=== PATIENT | male | born 1935 | race Caucasian/White ===

== ENCOUNTER 2017-06-29 05:38 | Inpatient (IN) | payer MEDICARE ==
[2017-06-29] MEDS ORDERED: Ondansetron HCl/PF 4 MG/2 ML Vial ONE (06:37)
[2017-06-29] MEDS ORDERED: Morphine 10 MG/ML VIAL ONE (06:37)
--- NOTE | 2017-06-29 08:36 | RAD ---
PRELIMINARY REPORT/[facility]/EMERGENCY AFTER HOURS PROCEDURE: EXAM: XR Left Hip With Pelvis When Performed, 2 or 3 Views CLINICAL HISTORY: 81 years old, male; Injury or trauma; Fall; Initial encounter; Blunt trauma (contusions or hematomas ); Left; Hip TECHNIQUE: Two or three views of the left hip, with pelvis when performed. COMPARISON: No relevant prior studies available. FINDINGS: Vertical orientation of the acetabular component with prominent surrounding lucency. Prominent lucency surrounding the femoral stem No definite fracture identified. Questionable irregularity along the proximal femoral shaft Prominent osteopenia in the left pubic bone IMPRESSION: Questionable loosening surrounding the left prosthesis Question minimal irregularity along the proximal left femoral cortex. CT may be helpful for further evaluation/characterization Thank you for allowing us to participate in the care of your patient. Dictated and Authenticated by: Esdras Lake MD 06/29/2017 7:15 AM Central Time ([place] \T\ [place]) FINAL REPORT TWO VIEWS OF THE LEFT HIP: COMPARISON: 08/10/16. HISTORY: Left hip pain. FINDINGS: Two views of the left hip show the patient to be status post left hip arthroplasty. There is lucenc y surrounding the acetabular component of the prosthesis which has increased compared to the prior e xam and may be secondary to small particles disease. Brachytherapy seeds are seen in the prostate. IMPRESSION: 1. No evidence of acute osseous abnormality. 2. Lucency surrounding the left hip prosthesis may be secondary to small particles disease. I agree with the impression given in the preliminary report per [facility] physician. POS: [facility]
--- NOTE | 2017-06-29 08:38 | RAD ---
PRELIMINARY REPORT/[facility]/EMERGENCY AFTER HOURS PROCEDURE: EXAM: XR Pelvis, 1 or 2 Views CLINICAL HISTORY: 81 years old, male; Injury or trauma; Fall; Initial encounter; Blunt trauma (contusions or hematomas ); Left; Hip TECHNIQUE: Frontal view of the pelvis. COMPARISON: No relevant prior studies available. FINDINGS: Prominent lucency medial to the left acetabular component Wires over the left femoral component are grossly intact. Brachytherapy seeds in the prostate. No de finite acute fracture or dislocation. Degenerative changes in the lower lumbar spine IMPRESSION: No definite acute fracture observed Lucencies surrounding the acetabular component on the left which may represent loosening. Consider CT for further evaluation Thank you for allowing us to participate in the care of your patient. Dictated and Authenticated by: Esdras Lake MD 06/29/2017 7:15 AM Central Time ([place] \T\ [place]) FINAL REPORT SINGLE VIEW OF THE PELVIS: COMPARISON: 04/13/17. HISTORY: Fall with left hip pain. FINDINGS: A single view of the pelvis shows the patient to be status post bilateral hip arthroplasty. Lucency is seen along the acetabular component of the left hip prosthesis, likely secondary to small partic les disease. Brachytherapy seeds are seen in the prostate. IMPRESSION: 1. No evidence of acute osseous abnormality. 2. Lucency surrounding the left hip prosthesis is likely secondary to small particles disease. I agree with the findings in the preliminary report. POS: [facility]
[2017-06-29 09:21] LABS: #Eosinphils 0.1 thou/uL (0.0-0.7); #Lymphocytes 1.6 thou/uL (1.20-3.40); #Monocytes 0.6 thou/uL (0.11-0.59); #Neutrophils 10.8 thou/uL (1.40-6.50); %Basophils 0.3 % (0.0-1.0); %Eosinophils 0.6 % (0.0-10.0); %Lymphocytes 12.2 % (21.0-51.0); %Monocytes 4.9 % (0.0-10.0); Hematocrit 41.2 % (42.0-52.0); Mean Platelet Volume 5.8 fL (7.4-10.4); Red Blood Cell (RBC) Count 4.63 mill/uL (4.70-6.10); White Blood Cell (WBC) Count 13.1 thou/uL (4.8-10.8)
--- NOTE | 2017-06-29 09:26 | CT ---
LEFT HIP CT SCAN: HISTORY: A 81-year-old male with fall and hip pain. FINDINGS: Bilateral total hip replacement changes with very extensive metal artifact resulting in severe image degradation on this CT scan. Comparison is made to prior plain film examinations dated 06/29/17 an d 08/10/16. The space between the mid and lower acetabulum and the acetabular prosthesis has considerably increa sed in size, evidence for loosening or developing particle disease. This space on plain film examin ation of 06/29/17 measured 1.9 cm whereas that same space on the 08/10/16 study measures 0.9 cm. No definite evidence for acute fracture. Periprosthetic fractures are oftentimes not visualized on CT because of the dense metal artifact and are oftentimes better visualized on plain film examination. IMPRESSION: Abnormal widening of the space between the mid and the inferior acetabulum and the acetabular prosth esis, evidence for loosening or developing particle disease. Severe bone demineralization. No over t acute fracture or dislocation. POS: [facility]
[2017-06-29 09:28] LABS: PTT 37.2 SEC (22.9-36.1)
[2017-06-29 09:42] LABS: ALT (SGPT) 20 U/L (8-55); AST (SGOT) 16 U/L (5-34); Alkaline Phosphatase 244 U/L (40-150); Anion Gap 15 mmol/L (10-20); BUN (Urea Nitrogen) 16 mg/dL (8.4-25.7); Bilirubin, Total 0.6 mg/dL (0.2-1.2); Calc. Creatinine Clearance 0 mL/min (70-130); Calcium 9.2 mg/dL (7.8-10.44); Carbon Dioxide 23 mmol/L (23-31); Chloride 104 mmol/L (98-107); Estimated GFR-MDRD 78; Protein, Total 7.3 g/dL (5.8-8.1)
[2017-06-29 12:51] VITALS: BMI 25.9
[2017-06-29] MEDS ORDERED: FLU VACC TS2017-18 (>65YR) 0.5 ML SYRINGE IM ONE (13:15)
[2017-06-29] MEDS ORDERED: hydrALAZINE 20 MG/ML VIAL SLOW IVP PRN (14:20)
[2017-06-29] MEDS ORDERED: Acetaminophen 500 MG TAB PO PRN (14:20)
[2017-06-29] MEDS ORDERED: cloNIDine 0.1 MG TAB PO PRN (14:20)
[2017-06-29] MEDS ORDERED: Ondansetron ODT 4 MG TAB PO PRN (14:20)
[2017-06-29] MEDS ORDERED: Ondansetron HCl/PF 4 MG/2 ML Vial IVP PRN (14:20)
[2017-06-29] MEDS: Gabapentin 300 MG CAP PO SCH ×2 (15:32→20:44)
[2017-06-29] MEDS: Morphine 4 MG/ML VIAL SLOW IVP PRN ×2 (15:32→19:15)
[2017-06-29] MEDS: ALPRAZolam 0.5 MG TAB PO SCH ×2 (16:24→20:44)
[2017-06-29] MEDS ORDERED: Enzalutamide [Xtandi] 40 MG CAPSULE PO SCH (16:30)
--- NOTE | 2017-06-29 17:06 | CON ---
DATE OF CONSULTATION: 06/29/2017 REASON FOR CONSULTATION: Left hip pain. HISTORY OF PRESENT ILLNESS: Mr. Herring is a patient, well known to me. I performed a revision of hi s hip for multiple dislocations some years in the past. He has been seen by me in the office and I have discussed with him the fact that he has a failing acetabular component and we have discussed re vision arthroplasty. In the past he has been steadfastly against this, unfortunately fell at home t [facility] and says the hip hurts too much to go home and basically does not feel that he can stay here. Comparing x-rays now to previous x-rays, his hip cup has moved significantly. He has failure of bon y ingrowth, has also significant osteolysis around the hip plate this time is for order CRP for infe ction workup, revision of the acetabulum unless he has an infection in which case all implants will have to be removed. He understands this is a risky surgery and he would like to proceed with surger y. This will only be done after cardiac workup. He does not take any type of blood thinner, but he does have a pacemaker and will need to be evaluated.
--- NOTE | 2017-06-29 17:41 | HP ---
DATE OF ADMISSION: 06/29/2017 PRIMARY CARE PHYSICIAN: Dr. Richar Morton. CHIEF COMPLAINT: Left hip pain status post fall. HISTORY OF PRESENT ILLNESS: This is a 81-year-old male who presents to [facility] in transfer from [facility] after apparently sustaining a fall aft er standing up. The patient states he was using his walker to stand up and he developed excruciatin g left hip pain causing him to fall and lose his balance. The patient states his legs felt like it give away and he admits to a longstanding history of difficulty with the left hip, status post total hip arthroplasty. The patient states he has had both hip replacements performed without any diffic ulty for the right side, but multiple difficulties with the left. The patient denied any loss of co nsciousness, chest pain, unilateral weakness or difficulty with speech. The patient denied any spec ific fever, chills, exposure history or discoloration to the leg. In the emergency room, the patien t underwent general evaluation including CT imaging of the left hip showing evidence of loosening of the current hardware at the acetabular interface. No specific fracture was identified; however, du e to loosening of the hardware and nonambulatory status, the patient is being referred to the [facility] for admission. The patient was evaluated by the Orthopedic Surgery service with recom mendations to proceed with surgical intervention and removal of hardware. PAST MEDICAL HISTORY: 1. History of multiple falls. 2. Thyroid carcinoma. 3. History of prostate carcinoma. 4. Sciatica. 5. Dyslipidemia. 6. Hypothyroidism. 7. Degenerative joint disease. 8. Hyperlipidemia. 9. Chronic neck and left hip pain. 10. Depression. PAST SURGICAL HISTORY: 1. Status post partial thyroidectomy. 2. Status post bilateral total hip arthroplasties. 3. Status post bilateral inguinal hernia repair. 4. Status post appendectomy. 5. Status post eye surgery. CURRENT MEDICATIONS: 1. Alprazolam 0.5 mg p.o. t.i.d. 2. Xtandi 160 mg p.o. daily. 3. Ferrous gluconate 325 mg p.o. daily. 4. Lasix 40 mg p.o. b.i.d. 5. Gabapentin 300 mg p.o. t.i.d. 6. Baker 10/325 mg 1 tab p.o. q.4-6 hours p.r.n. pain. 7. Levothyroxine 88 mcg p.o. daily. 8. Flomax 0.4 mg p.o. b.i.d. ALLERGIES: No known drug allergies. FAMILY HISTORY: No inheritable diseases per patient report. SOCIAL HISTORY: The patient resides at [facility]. Retired. Remote history of t obacco and heavy alcohol use. No illicit drug use. Ambulates with the use of a rolling walker with history of recurrent falls. REVIEW OF SYSTEMS: The following complete review of systems was negative, unless otherwise mentione d in the HPI or below: Constitutional: Weight loss or gain, ability to conduct usual activities. Skin: Rash, itching. Eyes: Double vision, pain. ENT/Mouth: Nose bleeding, neck stiffness, pain, tenderness. Cardiovascular: Palpitations, dyspnea on exertion, orthopnea. Respiratory: Shortness of breath, wheezing, cough, hemoptysis, fever or night sweats. Gastrointestinal: Poor appetite, abdominal pain, heartburn, nausea, vomiting, constipation, or diar owen. Genitourinary: Urgency, frequency, dysuria, nocturia. Musculoskeletal: Pain, swelling. Neurologic/Psychiatric: Anxiety, depression. Allergy/Immunologic: Skin rash, bleeding tendency. PHYSICAL EXAMINATION: VITAL SIGNS: On admission, blood pressure 114/60, pulse 74, respiratory rate is 15, temperature 98. 3 degrees Fahrenheit, O2 saturation 96% on room air. GENERAL APPEARANCE: This is a 81-year-old male, alert and oriented x3, pleasant, responsi ve, in no acute distress. HEENT: Pupils are equal, round, and reactive to light and accommodation. Extraocular muscles are i ntact. No scleral icterus, no conjunctival injection. Nares patent. OP is clear. Teeth in fair r epair. NECK: Supple, no cervical adenopathy, no thyromegaly, no carotid bruits, no JVD appreciated. Cervi yusuf spine with full active and passive range of motion. CHEST: Lungs are clear to auscultation bilaterally. CARDIOVASCULAR: S1, S2, without noted murmur. ABDOMEN: Rounded, soft, nontender, nondistended. Bowel sounds are positive in all four quadrants. There is no hepatosplenomegaly, no abdominal bruits, no rebound or guarding appreciated. EXTREMITIES: Warm and dry with fair turgor. Mild edema to the mid shins bilaterally. Pulses palpa ble distally at the dorsalis pedis, posterior tibial, and popliteal arteries bilaterally. Capillary refill less than 2 seconds. Positive tenderness to palpation in the left greater trochanter region . No palpable mass or deformity. NEUROLOGIC: Cranial nerves II-XII are grossly intact. No focal or lateralizing signs appreciated. The patient not observed ambulatory during this exam. PERTINENT LABORATORY AND X-RAY FINDINGS: Sodium 138, potassium 4.4, chloride 104, CO2 of 23, BUN 16 , creatinine 0.93, glucose 104, calcium 9.2, AST 16, ALT of 20, alkaline phosphatase 244, albumin 3. 3. CBC showed a white blood cell count 13.1, hemoglobin 13, hematocrit 41, platelet count 436 with 82% neutrophils. PT 14.0, INR 1.1, PTT 37.2. Two views of the left hip dated 06/29/2017 showed que stionable loosening surrounding the left hip prosthesis. CT of the left hip dated 06/29/2017 showed abnormal widening of the space between the mid and the inferior acetabulum and acetabular prosthesi s. Severe bone demineralization noted. No acute fracture identified. ASSESSMENT AND PLAN: 1. Displaced left hip prosthesis with intractable left hip pain. The patient will be admitted to [facility] floor. We will continue morphine sulfate 4 mg IV every 4 hours p.r.n. pain. Continue ho me Baker regimen. Consult Orthopedic Surgery service for evaluation and likely need for removal of hardware and total hip arthroplasty. 2. Recurrent falls. Suspect multifactorial given patient's displaced hardware and severe degenerat ml joint disease. Obtain PT evaluation for functional assessment. High fall risk precautions. 3. Leukocytosis with neutrophilia. Suspect secondarily to recent fall. We will repeat CBC in the a.m. No current evidence of focal infectious process. 4. Hypothyroidism. Resume Synthroid 88 mcg p.o. daily. 5. Prostate carcinoma. Continue Xtandi 160 mg p.o. daily. 6. Prophylaxis. Sequential compression devices while in bed. Pepcid 20 mg p.o. b.i.d. PT evaluat ion pending. 7. Code status is FULL. Surrogate medical decision maker is patient's son.
[2017-06-29] MEDS: Famotidine 20 MG TAB PO SCH (20:44)
[2017-06-29] MEDS: Tamsulosin HCl 0.4 MG CAP PO SCH (20:45)
[2017-06-29] MEDS ORDERED: Furosemide 40 MG TAB PO SCH (21:00)
[2017-06-30] MEDS: Morphine 4 MG/ML VIAL SLOW IVP PRN ×5 (00:23→21:46)
[2017-06-30] MEDS: HYDROcodone/Acetaminophen 10/325 mg Tablet PO PRN ×4 (03:40→19:23)
[2017-06-30] MEDS: Levothyroxine Sodium 88 MCG TAB PO SCH (06:04)
[2017-06-30] MEDS: Furosemide 40 MG TAB PO SCH ×2 (06:04→14:33)
[2017-06-30 06:27] LABS: Band 1 % (5-11); Hematocrit 39.5 % (42.0-52.0); Mean Platelet Volume 5.9 fL (7.4-10.4); Neutrophil 58 % (42-75); Reactive Lymphocytes 2 % (0-10); Red Blood Cell (RBC) Count 4.44 mill/uL (4.70-6.10); White Blood Cell (WBC) Count 7.3 thou/uL (4.8-10.8)
[2017-06-30 06:29] LABS: Anion Gap 15 mmol/L (10-20); BUN (Urea Nitrogen) 14 mg/dL (8.4-25.7); Calc. Creatinine Clearance 87 mL/min (70-130); Calcium 8.8 mg/dL (7.8-10.44); Carbon Dioxide 22 mmol/L (23-31); Chloride 102 mmol/L (98-107); Estimated GFR-MDRD Greater than 90
[2017-06-30] MEDS: Enzalutamide [Xtandi] 40 MG CAPSULE PO SCH (08:10)
[2017-06-30] MEDS: ALPRAZolam 0.5 MG TAB PO SCH ×3 (08:18→20:22)
[2017-06-30] MEDS: Famotidine 20 MG TAB PO SCH ×2 (08:18→20:22)
[2017-06-30] MEDS: Ferrous Gluconate 324 MG TAB PO SCH (08:19)
[2017-06-30] MEDS: Tamsulosin HCl 0.4 MG CAP PO SCH ×2 (08:19→20:22)
[2017-06-30] MEDS: Gabapentin 300 MG CAP PO SCH ×3 (08:19→20:22)
--- NOTE | 2017-06-30 12:47 | PDOC.PN ---
- Subjective Encounter Start Date: 06/30/17 Encounter Start Time: 08:40 -: old records requested/rev Patient seen and examined. No overnight events, has left hip pain, no fever - Objective Resuscitation Status: Resuscitation Status FULL:Full Resuscitation MAR Reviewed: Yes Vital Signs & Weight: Vital Signs (12 hours) Temp Pulse Resp BP Pulse Ox 06/30/17 12:00 97.7 F 69 18 111/72 94 L 06/30/17 11:30 97.7 F 69 20 111/72 94 L 06/30/17 09:00 97.9 F 66 20 06/30/17 08:00 97.9 F 66 20 111/71 93 L 06/30/17 07:44 97.9 F 66 18 111/71 93 L 06/30/17 04:31 98.4 F 78 18 112/72 94 L I&O: 06/29/17 06/30/17 07/01/17 06:59 06:59 06:59 Intake Total 1422 Output Total 535 Balance 887 Result Diagrams: 06/30/17 05:10 06/30/17 05:10 Radiology Reviewed by me: Yes Phys Exam - Physical Examination Constitutional: NAD HEENT: PERRLA, moist MMs, sclera anicteric Neck: no JVD, supple Respiratory: no wheezing, no rales, no rhonchi Cardiovascular: RRR, no significant murmur, no rub Gastrointestinal: soft, non-tender, no distention, positive bowel sounds Musculoskeletal: no edema, pulses present Neurological: non-focal Lymphatic: no nodes Psychiatric: normal affect Skin: no rash, normal turgor Dx/Plan (1) Inability to ambulate due to left hip Code(s): R26.2 - DIFFICULTY IN WALKING, NOT ELSEWHERE CLASSIFIED Status: Acute (2) Left hip pain Code(s): M25.552 - PAIN IN LEFT HIP Status: Acute (3) Anxiety and depression Code(s): F41.8 - OTHER SPECIFIED ANXIETY DISORDERS Status: Chronic (4) DJD (degenerative joint disease) Code(s): M19.90 - UNSPECIFIED OSTEOARTHRITIS, UNSPECIFIED SITE Status: Chronic (5) Dyslipidemia Code(s): E78.5 - HYPERLIPIDEMIA, UNSPECIFIED Status: Chronic (6) H/O prostate cancer Code(s): Z85.46 - PERSONAL HISTORY OF MALIGNANT NEOPLASM OF PROSTATE Status: Chronic (7) Hypothyroidism Code(s): E03.9 - HYPOTHYROIDISM, UNSPECIFIED Status: Chronic (8) Physical deconditioning Code(s): R53.81 - OTHER MALAISE Status: Chronic (9) Recurrent falls Code(s): R29.6 - REPEATED FALLS Status: Chronic - Plan cont current plan of care * will do EKG, chest xray and echo as a part of pre operative evaluation * ortho requesting cardiac clearance for surgery * pt is planned for surgery may be on Saturday * medication reviewed as below * symptomatic treatment * discussed with ortho. Review of Systems - Review of Systems ENT: negative: Ear Pain, Ear Discharge, Nose Pain, Nose Discharge, Nose Congestion, Mouth Pain, Mouth Swelling, Throat Pain, Throat Swelling, Other Respiratory: negative: Cough, Dry, Shortness of Breath, Hemoptysis, SOB with Excertion, Pleuritic Pain, Sputum, Wheezing Cardiovascular: negative: Chest Pain, Palpitations, Orthopnea, Paroxysmal Noc. Dyspnea, Edema, Light Headedness, Other Gastrointestinal: negative: Nausea, Vomiting, Abdominal Pain, Diarrhea, Constipation, Melena, Hematochezia, Other Genitourinary: negative: Dysuria, Frequency, Incontinence, Hematuria, Retention , Other Musculoskeletal: Leg Pain. negative: Neck Pain, Shoulder Pain, Arm Pain, Back Pain, Hand Pain, Foot Pain, Other Skin: negative: Rash, Lesions, Ebenezer, Bruising, Other - Medications/Allergies Allergies/Adverse Reactions: Allergies Allergy/AdvReac Type Severity Reaction Status Date / Time No Known Allergies Allergy Verified 04/12/17 10:53 Medications: Current Medications Acetaminophen (Tylenol) 1,000 mg PO Q6H PRN PRN Reason: Headache/Fever or Mild Pain Hydrocodone Bitart/Acetaminophen (Dawson 10/325) 1 tab PO Q4H PRN PRN Reason: Moderate Pain (4-6) Last Admin: 06/30/17 08:20 Dose: 1 tab Alprazolam (Xanax) 0.5 mg PO TID COUNTS INCLUDE 234 BEDS AT THE [facility] Last Admin: 06/30/17 08:18 Dose: 0.5 mg Clonidine (Catapres) 0.1 mg PO Q4H PRN PRN Reason: Systolic BP > 180 Famotidine (Pepcid) 20 mg PO BID COUNTS INCLUDE 234 BEDS AT THE [facility] Last Admin: 06/30/17 08:18 Dose: 20 mg Ferrous Gluconate (Fergon) 324 mg PO DAILY COUNTS INCLUDE 234 BEDS AT THE [facility] Last Admin: 06/30/17 08:19 Dose: 324 mg Furosemide (Lasix) 40 mg PO 0600,1400 COUNTS INCLUDE 234 BEDS AT THE [facility] Last Admin: 06/30/17 06:04 Dose: 40 mg Gabapentin (Neurontin) 300 mg PO TID COUNTS INCLUDE 234 BEDS AT THE [facility] Last Admin: 06/30/17 08:19 Dose: 300 mg Hydralazine HCl (Apresoline) 10 mg SLOW IVP Q4H PRN PRN Reason: Systolic BP > 180 Levothyroxine Sodium (Synthroid) 88 mcg PO 0600 COUNTS INCLUDE 234 BEDS AT THE [facility] Last Admin: 06/30/17 06:04 Dose: 88 mcg Morphine Sulfate (Morphine Sulfate) 4 mg SLOW IVP Q4H PRN PRN Reason: Severe Pain (7-10) Last Admin: 06/30/17 10:16 Dose: 4 mg Ondansetron HCl (Zofran Odt) 4 mg PO Q6H PRN PRN Reason: Nausea/Vomiting Ondansetron HCl (Zofran) 4 mg IVP Q6H PRN PRN Reason: Nausea/Vomiting Enzalutamide [Xtandi (] 40 Mg Capsule) 0 each PO DAILY COUNTS INCLUDE 234 BEDS AT THE [facility] Sodium Chloride (Flush - Normal Saline) 10 ml IVF PRN PRN PRN Reason: Saline Flush Last Admin: 06/30/17 08:22 Dose: 10 ml Tamsulosin HCl (Flomax) 0.4 mg PO BID COUNTS INCLUDE 234 BEDS AT THE [facility] Last Admin: 06/30/17 08:19 Dose: 0.4 mg
--- NOTE | 2017-06-30 13:07 | RAD ---
UPRIGHT XPS 1 VIEW: HISTORY: A 81-year-old male for preoperative evaluation. COMPARISON: 08/10/16. FINDINGS: Left ICD. Patchy increased linear and interstitial markings in the right upper lobe, right lower lo be, and mid lung zone in the left side which appear to be chronic and stable from prior study. No c onfluent pneumonia or overt edema. IMPRESSION: Stable bilateral chronic changes. No acute intrathoracic disease. POS: [facility]
--- NOTE | 2017-06-30 14:30 | PRG ---
DATE OF SERVICE: 06/30/2017 SUBJECTIVE: Mr. Herring was seen for followup of his left hip pain. He has pelvic pain. He does hav e a history of prostate cancer and has been treated with radioactive gold seeds. He has suffered a recurrence and has had an elevated PSA. He is under the care of Dr. Madina Smiley for this. His javi in is also painful in the area of his artificial hip. Today laboratory studies show that his white blood cell count is down to 7.3 from 13. His C-reactive protein is 15.4 and his hemoglobin was 12 a nd hematocrit is 39. Today, I reviewed his radiographs again and discussed the findings with Mr. Noman jean. He has a displaced acetabular component. This has been loose for a while, but is markedly ruben fted. He has an elevated C-reactive protein and this could be due to infection, could also be due t o his carcinoma that he is suffering, but I feel that there is a very high chance of infection. I d iscussed the options of him being; 1. If there is no infection doing a revision hip replacement; 2. If there is an infection, option would be either removal all implants and treatment with antibioti cs in which case, he would never walk again or attempt to place an antibiotic spacer with an acetabu lar prosthesis and treat him with IV antibiotics for 6 weeks followed by oral suppression and the th ird option is hospice consultation pain management and no treatment. He has opted for option #2 wit h antibiotic spacer if it is infected. I will discuss with Dr. Madina Smiley about his prognosis, bu t I do not think this is going to change the options in this case. He understands there is a high r isk of with this procedure and rehabilitation will be long and he obviously suffers comorbidit ies which could be difficult, so plan at this time is for surgery on Saturday; 2. He will require ca rdiac clearance. He does have a pacemaker. 3. Contact Dr. Madina Smiley.
--- NOTE | 2017-06-30 22:58 | CON ---
Francisca Justin NP, dictating for Jessica Ansari M.D. ROOM NUMBER: [id number] PRIMARY CARE PHYSICIAN: Richar Morton M.D. PRIMARY CORDIOLOGIST: Abdullahi Carson M.D. REFERRING PHYSICIAN: João Marc M.D. REASON FOR CARDIOLOGY CONSULTATION: Preoperative clearance for left hip replacement. HISTORY OF PRESENT ILLNESS: Mr. Herring is a [id number] male with a significant history o f sick sinus syndrome with status post pacemaker, chronic cough and edema in the lower extremities. The patient presented to the [facility] from [facility] due to status post fall on June 28, 2017 due to the worsening of left hip pain secondary to status p ost fall in 06/28. 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 At that time during the episode, he knew he is falling and h e did not have any dizziness, lightheadedness, syncope or chest pain or discomfort or any other card iac symptoms. In the emergency room, the patient's CT scan revealed evidence of loosening of the cu rrent hardware acetabular interface in his left hip. He has multiple left hip fractures and replace ment more than 10 times previous to this event. The patient was evaluated by Surgery Service and he was recommended to undergo surgical intervention to remove the hardware from his left hip. During the Cardiology initial assessment, patient denies dizziness, lightheadedness, chest pain or discomfo rt in his chest, palpitation or fluttering in his chest, shortness of breath, nausea, vomiting or nu mbness in the left upper and lower extremities or any other cardiac complaints. He is Dr. Carson's patient. He has a history of pacemaker placement, last interrogation was in 09/2015 which shows almost 60% A pacing and almost 100% V pacing. His generator change out was in . The patient does not have any history of cardiac catheterization. His latest stress test wa s in 2015, which was probably normal with myocardial perfusion study with no evidence of overt area of ischemia or infarction and the EF of 69%. His latest echocardiogram was in 2015, which revealed EF of 50-60%, mild mitral valve regurgitation, moderate tricuspid regurgitation and mild left atrial enlargement and patient has had a carotid Doppler study in 2012, which revealed no evidence of sign ificant stenosis and also he had abdomen and pelvis CTA with run off which revealed a large hernia c hronic interstitial fiberoptic lung change, 3.8 cm left renal cyst and prostate seed implanted and n o evidence of any significant stenosis in his lower extremities. At this moment echocardiogram, the result is pending. PAST MEDICAL HISTORY: 1. Sick sinus syndrome with pacemaker placement. 2. Prostate cancer about 12 years ago with prostate seed implant and currently she is taking experi mental drug which stabilize his prostate status symptoms. 3. Venous insufficiency. 4. Paroxysmal SVT. PAST SURGICAL HISTORY: 1. More than 10 times of the left hip replacement and treatment. Last treatment was 2014. 2. Pacemaker placement and the last pacemaker change out was in 2015. 3. Cataract surgery. 4. Appendectomy. 5. Double hernia repair. 6. Thyroidectomy. FAMILY HISTORY: The patient's mother due to CVA at the age of 89. Other than that, dixie reagan does not have any other significant cardiovascular related history. SOCIAL HISTORY: The patient lives in [facility]. Usually he does walk w ith a walker, but active. He usually walks from bedroom to the bathroom or living room to the bathr oom. He has 2 sons who are alive and well. He is an ex-smoker, he quit 5-6 years ago. He has ex-E LEONILA abuse, he quit again 5-6 years ago. He denies any illicit or drug abuse. ALLERGIES: No known drug allergies. HOME MEDICATIONS: Iron supplements 325 mg 1 tablet once a day, ibuprofen 200 mg every 6 hours as ne eded, furosemide 20 mg once a day, oxycodone 10 mg every 4 hours as needed, Myrbetriq 50 mg 1 tablet once a day for prostate, Flomax 0.4 mg 1 tablet once a day, levothyroxine 88 mcg once a day, Xtandi 40 mg 4 capsules once a day and gabapentin 300 mg 3 times a day. REVIEW OF SYSTEMS: The following complete review of systems was negative, unless otherwise mentione d in the HPI or below. Constitutional: Weight loss or gain, sense of well being, ability to conduct usual activities. Ski n: Rash, itching, change in hair growth or loss, nail change, breast lumps, tenderness, swelling, n ipple discharge. Eyes: He wears glasses, but negative for vision change, double vision, tearing, b jorge spot pain. HEENT: Headache, vertigo, lightheadedness, dizziness, nasal bleeding, cold, obstru ction, discharge, dental difficulty, gingival bleeding. He wears full denture in upper side, but ne gative for neck stiffness, pain, tenderness, mass in thyroid or other areas. Cardiovascular: Precordial pain, substernal distress, palpitation, syncope, dyspnea on exertion, or thopnea, nocturnal dyspnea, cyanosis, hypertension, heart murmur, varicosis, claudication. Respirat ory: Pain, shortness of breath, wheezing, stridor, cough, hemoptysis, fever or night sweats. Gastr ointestinal: Poor appetite, dysphagia, indigestion, abdominal pain, heartburn, irritation, nausea, vomiting, jaundice, constipation, or diarrhea, abnormal stool, hemorrhoids, recent changes in bowel habit. Genitourinary: Positive for hematuria due to a history of prostate cancer, but negative for urgency, frequency, dysuria, nocturia, polyuria, oliguria, unusual color of urine except hematuria. Musculoskeletal: He has chronic pain in his left hip, but negative for redness or heat of muscle or joint, muscular weakness, atrophy, cramps. Neurologic: Seizure conversion paralysis, tremor, in coordination, difficulty with memory of speech, sensory or motor disturbance or muscular coordinatio n. Psychiatric: Emotional problem, anxiety, depression, previous psychiatric care, unusual percept ion, hallucination. PHYSICAL EXAMINATION: VITAL SIGNS: Blood pressure was 111/72, heart rate 69, respiratory rate 18, O2 sat 94% with room ai r, temperature 97.7. GENERAL: Well-developed, well-nourished without any acute distress. HEAD: Normocephalic, atraumatic. EYES: Extraocular muscle movement intact. ENT: Oral and nasal mucosa are moist without lesion. NECK: No JVD. Neck supple and normal range of motion. There is an incision in his right lower nec k which is healed. LUNGS: Clear to auscultate bilaterally. No wheezing, rales or rhonchi noted. CARDIOVASCULAR: Regular rate and rhythm. Normal S1, S2. There are no S3 or S4. No significant mu rmur hives thrill bruit or rub noted. EXTREMITIES: There are 2+ dorsal pulses in bilateral dorsal pedis, posterior tibial and popliteal. Carotid pulses are present without bruits or thrill. No edema in his bilateral lower extremities. ABDOMEN: Soft and nontender or mass to palpate, nondistended. Bowel sounds are present. MUSCULOSKELETAL: Able to move all extremities except some difficulty to the left lower extremity. SKIN: Warm and dry. No skin rash or lesion or bruise noted. NEUROLOGIC: Alert, oriented x4, awake, normal affect, nonfocal. PSYCHIATRIC: Mood and affect normal. The patient's 12-lead EKG shows A sensing V paced, heart rate is 69. At this moment, the patient's echocardiogram result is pending. LABORATORY DATA: WBC 7.3, hemoglobin 12.4, hematocrit 39.5 and platelets 415. INR 1.1. Sodium 135 , potassium 4.1, BUN 14, creatinine 0.82, AST 60 and ALT 20. C-reactive protein 15.4. ASSESSMENT AND PLAN: 1. Cardiology surgical clearance for left hip replacement. Patient's echocardiogram during this ad mission, result is pending at this time. Patient's stress test in 2015 was normal. Normal myocardi al perfusion study with no evidence of ischemia or infarction and the patient's echocardiogram in shows ejection fraction of 55% to 60% with normal function of aortic valve and during that event of fall until today, he denies any cardiac related complaints. 2. History of multiple falls. The patient already had a physical therapy evaluation and treatment ordered by patient's primary care doctor. 3. History of sick sinus syndrome with pacemaker placement. Last interrogation in 2015 showed a no rmal function of pacemaker. We would like to continue to monitor. 4. Chronic edema in his lower extremities, which is stable. We would like to continue to monitor L asix 40 mg p.o. twice a day. 5. Prostate cancer. The patient's primary care doctor already resumed patient's home medication du ring this admission, which is managed by primary care doctor. 6. Chronic anemia. The patient's hemoglobin and hematocrit level are relatively stable at this kamran e and patient is on iron supplement for his history of anemia. We are waiting for the echocardiogram results at this moment. Once we receive the results of the leida madrid's echocardiogram, we would like to decide the patient's surgical clearance. Tomorrow, Dr. Drew almonte will be here to assess the patient. Thank you very much for allowing the Cardiology Service to participate in the care of this patient. We will follow along with the patient care team and make further recommendations as appropriate.
--- NOTE | 2017-06-30 23:19 | CON ---
DATE OF ADMISSION: 06/29/2017 DATE OF CONSULTATION: 06/30/2017 INDICATION FOR CONSULTATION: A 81-year-old patient who needs to undergo left hip surgery. He has h istory of sick sinus syndrome with pacemaker insertion, this has overall no other significant cardia c problems. Please refer to the notes already dictated by the nurse practitionerFrancisca. This very pleasant gentleman, 81 years old, who has a history of sick sinus syndrome, who underwent pacemaker insertion in the past, he also underwent pacemaker change out due to pacemaker generator at [facility]. H is last evaluation of pacemaker was normal, I believe his last change out was in 2016. He has a tammy l chamber pacemaker and has had normal function. He denies any cardiac complaints such as chest marie n. He does occasionally have some dyspnea. He has undergone stress testing last year, which showed no evidence of underlying ischemia. He has fallen and has again broken his left hip, I believe he already had a prosthesis there and is no longer functioning. He needs to undergo a repair either re moval of the hip and we were asked to see him in order to clear him for a surgery. From a cardiac s tandpoint, he should be a reasonable candidate to proceed with the surgery. His last stress test in 2016 showed no evidence of ischemia. His last echocardiogram in 2016 showed an ejection fraction o f 55% to 60% with mild mitral valve regurgitation, moderate tricuspid valve regurgitation, mild left atrial dilatation. There were no obstructive lesions noted. He has no known drug allergies. He h as had a history in the past of supraventricular tachycardia, but this has remained stable. At this time, I would proceed with the surgery. He should actually for his age be a low risk for any acute cardiac events during the procedure, I evaluated the patient. PHYSICAL EXAMINATION: CHEST: Clear to auscultation. CARDIOVASCULAR: Reveals a regular rate and rhythm. He has a well-healed surgical incision over the pacemaker site in the left infraclavicular area. ABDOMEN: Unremarkable. EXTREMITIES: Showed no clubbing or cyanosis. No lower extremity edema was noted. He has some disc omfort and has immobilization of the left hip. VITAL SIGNS: Blood pressure is 111/72, heart rate is 70, and respiratory rate is about 16, and he i s afebrile. ASSESSMENT AND PLAN: I would agree with the assessment and plan and the dictation by the nurse prac titYusef gallegoso. An echocardiogram was ordered. I will review that either today or early tomorrow morning. If it is available for today, we will review that prior to tomorrow morning and the report s should be available, but I suspect he remains stable and should be a good candidate to proceed wit h his surgery. He has not had any cardiac problems in the past during his surgical procedures.
[2017-07-01] MEDS: Morphine 4 MG/ML VIAL SLOW IVP PRN ×4 (02:09→23:00)
[2017-07-01] MEDS: Levothyroxine Sodium 88 MCG TAB PO SCH (05:22)
[2017-07-01] MEDS: HYDROcodone/Acetaminophen 10/325 mg Tablet PO PRN ×2 (05:22→20:36)
[2017-07-01] MEDS: Furosemide 40 MG TAB PO SCH ×2 (05:22→13:44)
[2017-07-01] MEDS: Famotidine 20 MG TAB PO SCH ×2 (08:36→20:30)
[2017-07-01] MEDS: Ferrous Gluconate 324 MG TAB PO SCH (08:36)
[2017-07-01] MEDS: Enzalutamide [Xtandi] 40 MG CAPSULE PO SCH (08:36)
[2017-07-01] MEDS: ALPRAZolam 0.5 MG TAB PO SCH ×3 (08:36→20:30)
[2017-07-01] MEDS: Gabapentin 300 MG CAP PO SCH ×3 (08:36→20:30)
[2017-07-01] MEDS: Tamsulosin HCl 0.4 MG CAP PO SCH ×2 (08:36→20:30)
--- NOTE | 2017-07-01 13:38 | PDOC.PN ---
- Subjective Encounter Start Date: 07/01/17 Encounter Start Time: 08:40 Patient seen and examined. No new complaints. No overnight events - Objective Resuscitation Status: Resuscitation Status FULL:Full Resuscitation MAR Reviewed: Yes Vital Signs & Weight: Vital Signs (12 hours) Temp Pulse Resp BP Pulse Ox 07/01/17 08:00 98.7 F 100 18 94 L 07/01/17 07:37 98.7 F 100 18 112/74 94 L I&O: 06/30/17 07/01/17 07/02/17 06:59 06:59 06:59 Intake Total 1422 2372 Output Total 535 1900 Balance 887 472 Result Diagrams: 06/30/17 05:10 06/30/17 05:10 Phys Exam - Physical Examination Constitutional: NAD HEENT: PERRLA, moist MMs, sclera anicteric Neck: no JVD, supple Respiratory: no wheezing, no rales, no rhonchi Cardiovascular: RRR, no significant murmur, no rub Gastrointestinal: soft, non-tender, no distention, positive bowel sounds Musculoskeletal: no edema, pulses present Neurological: non-focal Lymphatic: no nodes Psychiatric: normal affect Skin: no rash, normal turgor Dx/Plan (1) Inability to ambulate due to left hip Code(s): R26.2 - DIFFICULTY IN WALKING, NOT ELSEWHERE CLASSIFIED Status: Acute (2) Left hip pain Code(s): M25.552 - PAIN IN LEFT HIP Status: Acute (3) Anxiety and depression Code(s): F41.8 - OTHER SPECIFIED ANXIETY DISORDERS Status: Chronic (4) DJD (degenerative joint disease) Code(s): M19.90 - UNSPECIFIED OSTEOARTHRITIS, UNSPECIFIED SITE Status: Chronic (5) Dyslipidemia Code(s): E78.5 - HYPERLIPIDEMIA, UNSPECIFIED Status: Chronic (6) H/O prostate cancer Code(s): Z85.46 - PERSONAL HISTORY OF MALIGNANT NEOPLASM OF PROSTATE Status: Chronic (7) Hypothyroidism Code(s): E03.9 - HYPOTHYROIDISM, UNSPECIFIED Status: Chronic (8) Physical deconditioning Code(s): R53.81 - OTHER MALAISE Status: Chronic (9) Recurrent falls Code(s): R29.6 - REPEATED FALLS Status: Chronic - Plan cont current plan of care * cardiology recommendation noted * plan for surgery tomorrow * echo result pending * medication reviewed as below * symptomatic treatment * pain controlled. Review of Systems - Review of Systems ENT: negative: Ear Pain, Ear Discharge, Nose Pain, Nose Discharge, Nose Congestion, Mouth Pain, Mouth Swelling, Throat Pain, Throat Swelling, Other Respiratory: negative: Cough, Dry, Shortness of Breath, Hemoptysis, SOB with Excertion, Pleuritic Pain, Sputum, Wheezing Cardiovascular: negative: Chest Pain, Palpitations, Orthopnea, Paroxysmal Noc. Dyspnea, Edema, Light Headedness, Other Gastrointestinal: negative: Nausea, Vomiting, Abdominal Pain, Diarrhea, Constipation, Melena, Hematochezia, Other Genitourinary: negative: Dysuria, Frequency, Incontinence, Hematuria, Retention , Other Musculoskeletal: negative: Neck Pain, Shoulder Pain, Arm Pain, Back Pain, Hand Pain, Leg Pain, Foot Pain, Other Skin: negative: Rash, Lesions, Ebenezer, Bruising, Other - Medications/Allergies Allergies/Adverse Reactions: Allergies Allergy/AdvReac Type Severity Reaction Status Date / Time No Known Allergies Allergy Verified 04/12/17 10:53 Medications: Current Medications Acetaminophen (Tylenol) 1,000 mg PO Q6H PRN PRN Reason: Headache/Fever or Mild Pain Hydrocodone Bitart/Acetaminophen ([place] 10/325) 1 tab PO Q4H PRN PRN Reason: Moderate Pain (4-6) Last Admin: 07/01/17 05:22 Dose: 1 tab Alprazolam (Xanax) 0.5 mg PO TID [facility] Last Admin: 07/01/17 08:36 Dose: 0.5 mg Clonidine (Catapres) 0.1 mg PO Q4H PRN PRN Reason: Systolic BP > 180 Famotidine (Pepcid) 20 mg PO BID [facility] Last Admin: 07/01/17 08:36 Dose: 20 mg Ferrous Gluconate (Fergon) 324 mg PO DAILY [facility] Last Admin: 07/01/17 08:36 Dose: 324 mg Furosemide (Lasix) 40 mg PO 0600,1400 [facility] Last Admin: 07/01/17 05:22 Dose: 40 mg Gabapentin (Neurontin) 300 mg PO TID [facility] Last Admin: 07/01/17 08:36 Dose: 300 mg Hydralazine HCl (Apresoline) 10 mg SLOW IVP Q4H PRN PRN Reason: Systolic BP > 180 Levothyroxine Sodium (Synthroid) 88 mcg PO 0600 [facility] Last Admin: 07/01/17 05:22 Dose: 88 mcg Morphine Sulfate (Morphine Sulfate) 4 mg SLOW IVP Q4H PRN PRN Reason: Severe Pain (7-10) Last Admin: 07/01/17 08:33 Dose: 4 mg Ondansetron HCl (Zofran Odt) 4 mg PO Q6H PRN PRN Reason: Nausea/Vomiting Ondansetron HCl (Zofran) 4 mg IVP Q6H PRN PRN Reason: Nausea/Vomiting Enzalutamide [Xtandi (] 40 Mg Capsule) 0 each PO DAILY [facility] Last Admin: 07/01/17 08:36 Dose: 4 each Sodium Chloride (Flush - Normal Saline) 10 ml IVF PRN PRN PRN Reason: Saline Flush Last Admin: 07/01/17 02:08 Dose: 10 ml Tamsulosin HCl (Flomax) 0.4 mg PO BID [facility] Last Admin: 07/01/17 08:36 Dose: 0.4 mg
[2017-07-01] MEDS ORDERED: CEFAZOLIN/Water 2 GM/20 ML SYRINGE SLOW IVP SCH (14:00)
[2017-07-02] MEDS: Morphine 4 MG/ML VIAL SLOW IVP PRN ×4 (03:25→20:03)
[2017-07-02] MEDS: Furosemide 40 MG TAB PO SCH ×2 (04:29→15:19)
[2017-07-02] MEDS: Levothyroxine Sodium 88 MCG TAB PO SCH (04:29)
[2017-07-02] MEDS: Famotidine 20 MG TAB PO SCH ×2 (10:35→20:03)
[2017-07-02] MEDS: Gabapentin 300 MG CAP PO SCH ×3 (10:35→20:02)
[2017-07-02] MEDS: ALPRAZolam 0.5 MG TAB PO SCH ×3 (10:36→20:03)
[2017-07-02] MEDS: Ferrous Gluconate 324 MG TAB PO SCH (10:36)
[2017-07-02] MEDS: Tamsulosin HCl 0.4 MG CAP PO SCH ×2 (10:36→20:02)
[2017-07-02] MEDS: Enzalutamide [Xtandi] 40 MG CAPSULE PO SCH (10:36)
[2017-07-02] MEDS: Metoprolol Tartrate 25 MG TAB PO SCH ×2 (10:37→20:02)
--- NOTE | 2017-07-02 13:20 | PDOC.PN ---
- Subjective Encounter Start Date: 07/02/17 Encounter Start Time: 09:45 Patient seen and examined. No new complaints. No overnight events - Objective Resuscitation Status: Resuscitation Status FULL:Full Resuscitation MAR Reviewed: Yes Vital Signs & Weight: Vital Signs (12 hours) Temp Pulse Resp BP Pulse Ox 07/02/17 08:00 97.8 F 63 16 119/69 96 07/02/17 04:32 97.8 F 66 18 113/70 93 L Weight Admit Weight 186 lb 1.12 oz Weight 186 lb 1.12 oz I&O: 07/01/17 07/02/17 07/03/17 06:59 06:59 06:59 Intake Total 2372 1940 Output Total 1900 Balance 472 1940 Result Diagrams: 06/30/17 05:10 06/30/17 05:10 Phys Exam - Physical Examination Constitutional: NAD HEENT: PERRLA, moist MMs, sclera anicteric Neck: no JVD, supple Respiratory: no wheezing, no rales, no rhonchi Cardiovascular: RRR, no significant murmur, no rub Gastrointestinal: soft, non-tender, no distention, positive bowel sounds Musculoskeletal: no edema, pulses present Neurological: non-focal, normal sensation Lymphatic: no nodes Psychiatric: normal affect Skin: no rash, normal turgor Dx/Plan (1) Inability to ambulate due to left hip Code(s): R26.2 - DIFFICULTY IN WALKING, NOT ELSEWHERE CLASSIFIED Status: Acute (2) Left hip pain Code(s): M25.552 - PAIN IN LEFT HIP Status: Acute (3) Anxiety and depression Code(s): F41.8 - OTHER SPECIFIED ANXIETY DISORDERS Status: Chronic (4) DJD (degenerative joint disease) Code(s): M19.90 - UNSPECIFIED OSTEOARTHRITIS, UNSPECIFIED SITE Status: Chronic (5) Dyslipidemia Code(s): E78.5 - HYPERLIPIDEMIA, UNSPECIFIED Status: Chronic (6) H/O prostate cancer Code(s): Z85.46 - PERSONAL HISTORY OF MALIGNANT NEOPLASM OF PROSTATE Status: Chronic (7) Hypothyroidism Code(s): E03.9 - HYPOTHYROIDISM, UNSPECIFIED Status: Chronic (8) Physical deconditioning Code(s): R53.81 - OTHER MALAISE Status: Chronic (9) Recurrent falls Code(s): R29.6 - REPEATED FALLS Status: Chronic - Plan cont current plan of care * today plan for surgery * medication reviewed as below * symptomatic treatment * medically stable and cleared for surgery * will monitor post op. Review of Systems - Review of Systems ENT: negative: Ear Pain, Ear Discharge, Nose Pain, Nose Discharge, Nose Congestion, Mouth Pain, Mouth Swelling, Throat Pain, Throat Swelling, Other Respiratory: negative: Cough, Dry, Shortness of Breath, Hemoptysis, SOB with Excertion, Pleuritic Pain, Sputum, Wheezing Cardiovascular: negative: Chest Pain, Palpitations, Orthopnea, Paroxysmal Noc. Dyspnea, Edema, Light Headedness, Other Gastrointestinal: negative: Nausea, Vomiting, Abdominal Pain, Diarrhea, Constipation, Melena, Hematochezia, Other Genitourinary: negative: Dysuria, Frequency, Incontinence, Hematuria, Retention , Other Musculoskeletal: negative: Neck Pain, Shoulder Pain, Arm Pain, Back Pain, Hand Pain, Leg Pain, Foot Pain, Other - Medications/Allergies Allergies/Adverse Reactions: Allergies Allergy/AdvReac Type Severity Reaction Status Date / Time No Known Allergies Allergy Verified 04/12/17 10:53 Medications: Current Medications Acetaminophen (Tylenol) 1,000 mg PO Q6H PRN PRN Reason: Headache/Fever or Mild Pain Hydrocodone Bitart/Acetaminophen ([place] 10/325) 1 tab PO Q4H PRN PRN Reason: Moderate Pain (4-6) Last Admin: 07/01/17 20:36 Dose: 1 tab Alprazolam (Xanax) 0.5 mg PO TID [facility] Last Admin: 07/02/17 10:36 Dose: 0.5 mg Cefazolin Sodium (Ancef) 2 gm SLOW IVP WILLCALL [facility] Stop: 07/02/17 14:01 Clonidine (Catapres) 0.1 mg PO Q4H PRN PRN Reason: Systolic BP > 180 Famotidine (Pepcid) 20 mg PO BID [facility] Last Admin: 07/02/17 10:35 Dose: 20 mg Ferrous Gluconate (Fergon) 324 mg PO DAILY [facility] Last Admin: 07/02/17 10:36 Dose: 324 mg Furosemide (Lasix) 40 mg PO 0600,1400 [facility] Last Admin: 07/02/17 04:29 Dose: Not Given Gabapentin (Neurontin) 300 mg PO TID [facility] Last Admin: 07/02/17 10:35 Dose: 300 mg Hydralazine HCl (Apresoline) 10 mg SLOW IVP Q4H PRN PRN Reason: Systolic BP > 180 Levothyroxine Sodium (Synthroid) 88 mcg PO 0600 [facility] Last Admin: 07/02/17 04:29 Dose: Not Given Metoprolol Tartrate (Lopressor) 12.5 mg PO BID [facility] Last Admin: 07/02/17 10:37 Dose: 12.5 mg Morphine Sulfate (Morphine Sulfate) 4 mg SLOW IVP Q4H PRN PRN Reason: Severe Pain (7-10) Last Admin: 07/02/17 12:41 Dose: 4 mg Ondansetron HCl (Zofran Odt) 4 mg PO Q6H PRN PRN Reason: Nausea/Vomiting Ondansetron HCl (Zofran) 4 mg IVP Q6H PRN PRN Reason: Nausea/Vomiting Enzalutamide [Xtandi (] 40 Mg Capsule) 0 each PO DAILY [facility] Last Admin: 07/02/17 10:36 Dose: 4 each Sodium Chloride (Flush - Normal Saline) 10 ml IVF PRN PRN PRN Reason: Saline Flush Last Admin: 07/01/17 02:08 Dose: 10 ml Tamsulosin HCl (Flomax) 0.4 mg PO BID [facility] Last Admin: 07/02/17 10:36 Dose: 0.4 mg
[2017-07-02] MEDS ORDERED: CEFAZOLIN/Water 2 GM/20 ML SYRINGE ONE (14:50)
[2017-07-02] MEDS ORDERED: Propofol 500 MG/50 ML VIAL ONE (15:28)
[2017-07-02] MEDS ORDERED: Fentanyl 100 MCG/2 ML VIAL ONE (15:28)
[2017-07-02] MEDS ORDERED: Tobramycin Sulfate 1.2 GM VIAL ONE ×2 (15:35→17:08)
[2017-07-02] MEDS ORDERED: PHENYLEPHRINE-NS 100 MCG/ML 10 ML SYRINGE ONE (16:06)
[2017-07-02] MEDS ORDERED: ePHEDrine/0.9% NaCl/PF SYRINGE 50 mg/10 ml ONE (16:06)
[2017-07-02] MEDS ORDERED: Propofol 200 MG/20 ML VIAL ONE (16:06)
[2017-07-02] MEDS ORDERED: Vancomycin HCl 1.5 GM in Sodium Chloride 0.9% 250 ML 300 ML IVPB SCH (17:00)
[2017-07-02] MEDS ORDERED: Fentanyl 100 MCG/2 ML VIAL SLOW IVP PRN (18:09)
[2017-07-02] MEDS ORDERED: Ondansetron HCl/PF 4 MG/2 ML Vial IVP PRN ×2 (18:10→18:11)
[2017-07-02] MEDS ORDERED: Zolpidem Tartrate 5 MG TAB PO PRN (18:11)
[2017-07-02] MEDS ORDERED: Tranexamic Acid 1,000 MG in Sodium Chloride 0.9% 100 ML IVPB SCH ×4 (18:15)
[2017-07-02] MEDS ORDERED: Tranexamic Acid 1,000 MG/100 ML BAG ONE (18:22)
[2017-07-02] MEDS: Sodium Chloride 0.9% 1,000 ML IV SCH (20:03)
--- NOTE | 2017-07-02 20:20 | RAD ---
LEFT HIP TWO VIEWS 07/02/17 HISTORY: Left hip replacement. FINDINGS: Left hip prosthesis is in place without perihardware lucency. Osseous structures are demineralized. Soft tissue gas is noted. IMPRESSION: Left hip prosthesis is in good radiographic position. POS: [facility]
[2017-07-02] MEDS: Fentanyl 100 MCG/2 ML VIAL SLOW IVP PRN (22:47)
[2017-07-03] MEDS: Fentanyl 100 MCG/2 ML VIAL SLOW IVP PRN ×3 (00:53→06:15)
[2017-07-03] MEDS: Sodium Chloride 0.9% 1,000 ML IV SCH (02:30)
[2017-07-03] MEDS: Furosemide 40 MG TAB PO SCH ×2 (04:10→16:02)
[2017-07-03] MEDS: Levothyroxine Sodium 88 MCG TAB PO SCH (04:10)
[2017-07-03] MEDS: Morphine 4 MG/ML VIAL SLOW IVP PRN ×3 (04:10→20:08)
--- NOTE | 2017-07-03 06:05 | PDOC.PN ---
- Subjective Encounter Start Date: 07/03/17 Encounter Start Time: 06:03 Patient seen and examined. No new complaints. No overnight events, s/p surgery yesterday - Objective Resuscitation Status: Resuscitation Status FULL:Full Resuscitation MAR Reviewed: Yes Vital Signs & Weight: Vital Signs (12 hours) Temp Pulse Resp BP Pulse Ox 07/03/17 05:45 98.2 F 90 18 123/70 98 07/03/17 01:28 97.9 F 80 18 116/73 98 07/02/17 20:00 97.4 F L 86 18 115/69 95 Weight Admit Weight 186 lb 1.12 oz Weight 186 lb 1.12 oz I&O: 07/01/17 07/02/17 07/03/17 06:59 06:59 06:59 Intake Total 2372 1940 Output Total 1900 850 Balance 472 1940 -850 Result Diagrams: 07/03/17 03:21 06/30/17 05:10 Phys Exam - Physical Examination Constitutional: NAD HEENT: PERRLA, moist MMs, sclera anicteric Neck: no JVD, supple Respiratory: no wheezing, no rales, no rhonchi Cardiovascular: RRR, no significant murmur, no rub Gastrointestinal: soft, non-tender, no distention, positive bowel sounds Musculoskeletal: no edema, pulses present left hip surgical site with dressing Neurological: non-focal, normal sensation Lymphatic: no nodes Psychiatric: normal affect Skin: no rash, normal turgor Dx/Plan (1) Inability to ambulate due to left hip Code(s): R26.2 - DIFFICULTY IN WALKING, NOT ELSEWHERE CLASSIFIED Status: Acute (2) Left hip pain Code(s): M25.552 - PAIN IN LEFT HIP Status: Acute Comment: s/p surgery, post op day 1 (3) Anxiety and depression Code(s): F41.8 - OTHER SPECIFIED ANXIETY DISORDERS Status: Chronic (4) DJD (degenerative joint disease) Code(s): M19.90 - UNSPECIFIED OSTEOARTHRITIS, UNSPECIFIED SITE Status: Chronic (5) Dyslipidemia Code(s): E78.5 - HYPERLIPIDEMIA, UNSPECIFIED Status: Chronic (6) H/O prostate cancer Code(s): Z85.46 - PERSONAL HISTORY OF MALIGNANT NEOPLASM OF PROSTATE Status: Chronic (7) Hypothyroidism Code(s): E03.9 - HYPOTHYROIDISM, UNSPECIFIED Status: Chronic (8) Physical deconditioning Code(s): R53.81 - OTHER MALAISE Status: Chronic (9) Recurrent falls Code(s): R29.6 - REPEATED FALLS Status: Chronic - Plan cont current plan of care, PT/OT, hospital social worker * follow up on hip tissue culture result * will repeat labs today * now consider PT/OT when ortho ok * will need placement * will ask manager of case to work on that * medically stable * pain controlled * medication reviewed as below * symptomatic treatment. * will consider discharge when ortho ok * will review labs once available Review of Systems - Review of Systems ENT: negative: Ear Pain, Ear Discharge, Nose Pain, Nose Discharge, Nose Congestion, Mouth Pain, Mouth Swelling, Throat Pain, Throat Swelling, Other Respiratory: negative: Cough, Dry, Shortness of Breath, Hemoptysis, SOB with Excertion, Pleuritic Pain, Sputum, Wheezing Cardiovascular: negative: Chest Pain, Palpitations, Orthopnea, Paroxysmal Noc. Dyspnea, Edema, Light Headedness, Other Gastrointestinal: negative: Nausea, Vomiting, Abdominal Pain, Diarrhea, Constipation, Melena, Hematochezia, Other Genitourinary: negative: Dysuria, Frequency, Incontinence, Hematuria, Retention , Other Musculoskeletal: negative: Neck Pain, Shoulder Pain, Arm Pain, Back Pain, Hand Pain, Leg Pain, Foot Pain, Other Skin: negative: Rash, Lesions, Ebenezer, Bruising, Other - Medications/Allergies Allergies/Adverse Reactions: Allergies Allergy/AdvReac Type Severity Reaction Status Date / Time No Known Allergies Allergy Verified 04/12/17 10:53 Medications: Current Medications Acetaminophen (Tylenol) 1,000 mg PO Q6H PRN PRN Reason: Headache/Fever or Mild Pain Hydrocodone Bitart/Acetaminophen ([place] 10/325) 1 tab PO Q4H PRN PRN Reason: Moderate Pain (4-6) Last Admin: 07/01/17 20:36 Dose: 1 tab Alprazolam (Xanax) 0.5 mg PO TID [facility] Last Admin: 07/02/17 20:03 Dose: 0.5 mg Clonidine (Catapres) 0.1 mg PO Q4H PRN PRN Reason: Systolic BP > 180 Enoxaparin Sodium (Lovenox) 40 mg SC 0900 [facility] Famotidine (Pepcid) 20 mg PO BID [facility] Last Admin: 07/02/17 20:03 Dose: 20 mg Fentanyl (Sublimaze) 50 mcg SLOW IVP Q30MIN PRN PRN Reason: Severe Pain (7-10) Fentanyl (Sublimaze) 100 mcg SLOW IVP Q1H PRN PRN Reason: Severe Pain (7-10) Last Admin: 07/03/17 02:26 Dose: 100 mcg Ferrous Gluconate (Fergon) 324 mg PO DAILY [facility] Last Admin: 07/02/17 10:36 Dose: 324 mg Furosemide (Lasix) 40 mg PO 0600,1400 [facility] Last Admin: 07/03/17 04:10 Dose: 40 mg Gabapentin (Neurontin) 300 mg PO TID [facility] Last Admin: 07/02/17 20:02 Dose: 300 mg Hydralazine HCl (Apresoline) 10 mg SLOW IVP Q4H PRN PRN Reason: Systolic BP > 180 Sodium Chloride (Normal Saline 0.9%) 1,000 mls @ 100 mls/hr IV .Q10H [facility] Stop: 07/03/17 12:00 Last Admin: 07/03/17 02:30 Dose: 1,000 mls Vancomycin HCl 1.5 gm/ Sodium (Chloride) 300 mls @ 200 mls/hr IVPB 0700,1900 [facility] Stop: 07/05/17 23:59 Levothyroxine Sodium (Synthroid) 88 mcg PO 0600 [facility] Last Admin: 07/03/17 04:10 Dose: 88 mcg Metoprolol Tartrate (Lopressor) 12.5 mg PO BID [facility] Last Admin: 07/02/17 20:02 Dose: 12.5 mg Morphine Sulfate (Morphine Sulfate) 4 mg SLOW IVP Q4H PRN PRN Reason: Severe Pain (7-10) Last Admin: 07/03/17 04:10 Dose: 4 mg Ondansetron HCl (Zofran Odt) 4 mg PO Q6H PRN PRN Reason: Nausea/Vomiting Ondansetron HCl (Zofran) 4 mg IVP Q6H PRN PRN Reason: Nausea/Vomiting Ondansetron HCl (Zofran) 4 mg IVP Q6H PRN PRN Reason: Nausea/Vomiting Enzalutamide [Xtandi (] 40 Mg Capsule) 0 each PO DAILY [facility] Last Admin: 07/02/17 10:36 Dose: 4 each Senna/Docusate Sodium (Senokot S) 2 tab PO BID [facility] Sodium Chloride (Flush - Normal Saline) 10 ml IVF PRN PRN PRN Reason: Saline Flush Last Admin: 07/01/17 02:08 Dose: 10 ml Sodium Chloride (Flush - Normal Saline) 10 ml IVF PRN PRN PRN Reason: Saline Flush Tamsulosin HCl (Flomax) 0.4 mg PO BID [facility] Last Admin: 07/02/17 20:02 Dose: 0.4 mg Zolpidem Tartrate (Ambien) 5 mg PO HSPRN PRN PRN Reason: Insomnia
[2017-07-03] MEDS: Vancomycin HCl 1.5 GM in Sodium Chloride 0.9% 250 ML 300 ML IVPB SCH ×2 (06:12→18:15)
--- NOTE | 2017-07-03 06:29 | OP ---
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 POSTOPERATIVE DIAGNOSIS: Failed left total hip possible deep infection versus metallic vertebrae. PROCEDURE: Revision total hip replacement. SURGEON: Salvador Fuller MD ANESTHESIA: Spinal. BLOOD LOSS: About 300 mL SPECIMEN: Cultures. DRAINS: None. COMPLICATIONS: None. PROCEDURE IN DETAIL: The patient was taken to the operating room where general anesthesia was induc ed. The patient was placed in right lateral decubitus position in a hip barrett. Left leg was prepp ed from the toes to the rib cage. I opened up a portion of the old scar, dissection carried down to the skin and subcutaneous tissue through the IT band, which was opened. Fortunately, abductors had been avulsed. The femur was dislocated and the femoral head was removed. Implants were removed fr om the femur including the femoral head and Dall-Miles cables fixing the femoral shaft. The acetabu lum was circumferentially exposed. I removed the liner from the acetabulum, removed screws from the pelvis. Pulsatile lavage irrigation was performed. There was a great deal of gelatinous looking m aterial in the hip, concerning for possible infection. There was not any significant purulence in t he hip and there was bone loss, but this is probably due to the failed total hip. I did see seen ni dus of osteomyelitis or interosseous abscess. I cleaned the acetabulum down to cancellous bone with curettes, and osteotomes are cleaned with pulsatile lavage irrigation, total of 8 liters of irrigat ion was used. I cemented using antibiotic-laden cement, a Dinosaur 64 mm cup with an MDM liner. Tob ramycin and vancomycin was used in the cement in case if there is a deep infection. I placed the tr ial femoral head, hip was stable. I eventually used an MDM head 48 outside diameter with a 28 mm in side diameter for the femur side. The trunnion was cleaned, the head was impacted into place, and t he hip was reduced, appeared to be stable throughout a range of motion. Additional pulsatile lavage irrigation was performed. Deep layer was repaired with #2 Vicryl and #2 Quill, subcutaneous closed with 0 Quill, skin was closed with 2-0 Prolene. Sterile dressings applied. There were no complica tions.
[2017-07-03 06:48] LABS: ALT (SGPT) 9 U/L (8-55); AST (SGOT) 15 U/L (5-34); Alkaline Phosphatase 151 U/L (40-150); Anion Gap 14 mmol/L (10-20); BUN (Urea Nitrogen) 18 mg/dL (8.4-25.7); Bilirubin, Total 0.4 mg/dL (0.2-1.2); Calc. Creatinine Clearance 86 mL/min (70-130); Calcium 9.4 mg/dL (7.8-10.44); Carbon Dioxide 27 mmol/L (23-31); Chloride 100 mmol/L (98-107); Estimated GFR-MDRD 90; Globulin 4.1 g/dL (2.4-3.5); Protein, Total 7.2 g/dL (5.8-8.1)
[2017-07-03] MEDS: Tamsulosin HCl 0.4 MG CAP PO SCH ×2 (07:42→20:07)
[2017-07-03] MEDS: ALPRAZolam 0.5 MG TAB PO SCH ×3 (07:42→20:08)
[2017-07-03] MEDS: Enoxaparin Sodium 40 MG/0.4 ML SYRINGE SC SCH (07:42)
[2017-07-03] MEDS: Ferrous Gluconate 324 MG TAB PO SCH (07:43)
[2017-07-03] MEDS: Gabapentin 300 MG CAP PO SCH ×3 (07:44→20:08)
[2017-07-03] MEDS: Famotidine 20 MG TAB PO SCH ×2 (07:44→20:07)
[2017-07-03] MEDS: Senokot S 8.6-50 MG TAB PO SCH ×2 (07:45→20:08)
[2017-07-03] MEDS: Metoprolol Tartrate 25 MG TAB PO SCH ×2 (07:46→20:08)
[2017-07-03] MEDS: Enzalutamide [Xtandi] 40 MG CAPSULE PO SCH (07:47)
[2017-07-03] MEDS ORDERED: cefTRIAXone\\ROCEPHIN 1 GM in Sodium Chloride 0.9% 100 ML IVPB SCH (13:30)
[2017-07-03] MEDS: cefTRIAXone\\ROCEPHIN 1 GM, Syringe 0.4 ML in Sterile Water 9.6 ML SLOW IVP SCH (14:23)
[2017-07-03 14:39] LABS: #Eosinphils 0.1 thou/uL (0.0-0.7); #Lymphocytes 1.3 thou/uL (1.20-3.40); #Monocytes 1.1 thou/uL (0.11-0.59); #Neutrophils 5.7 thou/uL (1.40-6.50); %Basophils 0.3 % (0.0-1.0); %Eosinophils 0.8 % (0.0-10.0); %Lymphocytes 15.9 % (21.0-51.0); %Monocytes 13.3 % (0.0-10.0); Hematocrit 39.3 % (42.0-52.0); Red Blood Cell (RBC) Count 4.45 mill/uL (4.70-6.10); White Blood Cell (WBC) Count 8.2 thou/uL (4.8-10.8)
--- NOTE | 2017-07-03 15:53 | SPC ---
RIGHT UPPER EXTREMITY PICC LINE ULTRASOUND AND FLUOROSCOPIC GUIDANCE: PROCEDURE: After informed consent had been obtained, the patient was placed on the interventional suite table in a supine position. The right arm was prepped and draped in a standard sterile fashion. Topical ane sthesia was achieved utilizing 1% Lidocaine and sodium bicarbonate. Under real-time sonography, the Basilic vein of the right upper extremity was accessed with a small caliber needle with venous flash present at the needle hub. A guidewire was then advanced in to the needle, and under real-time fluor oscopy, the guidewire was advanced to the level of the inferior vena cava to confirm appropriate veno us placement. A small skin incision was made and the needle was removed. Over the guidewire, a sing le lumen PICC line was cut to 40 cm. The PICC line was advanced under real-time fluoroscopy over the guidewire to the level of the cavoatrial junction. The guidewire and peelaway sheath were then christie sandra. PICC line flushed and aspirated appropriately and was secured to the right upper extremity. Th ere were no procedural complications. EXPOSURE DATA: 0 minutes fluoroscopy, 57 mGy*^cm2. IMPRESSION: Technically successful ultrasound and fluoroscopic-guided single lumen PICC line placement, as above. POS: BRANDON
--- NOTE | 2017-07-03 20:24 | CON ---
DATE OF CONSULTATION: 07/03/2017 REASON FOR CONSULTATION: Left TKR infection. HISTORY OF PRESENT ILLNESS: An 82-year-old gentleman who has a history of prostate cancer and thyroi d cancer as well as bilateral hip replacements with multiple procedures in the left side. The last o ne was about two years ago when he fell and dislocated the hip, had a revision and since then he has had persistent pain. Eventually, loosening was demonstrated on x-ray and he had an aspirate done. T he aspirate was carried out in 03/2017. No organisms were seen and rare WBCs. Persistent with the p ain, eventually underwent removal of the implant. The operative report was reviewed. The surgery wa s done yesterday. Some gelatinous material was seen and cultures are still pending. Patient has mil d to moderate pain in the left side. No headaches, visual symptoms, sore throat, odynophagia or dysp hagia. No dyspnea or chest pain. No abdominal pain or diarrhea. No genitourinary symptoms except f or Guerra catheter. Previously before the Guerra, he had incontinence of urine. No neurological sympt oms. PAST MEDICAL HISTORY: Falls; gait imbalance; thyroid cancer, in remission; prostate cancer, currentl y on treatment; sciatica; bilateral knee replacements; degenerative joint disease; hyperlipidemia and depression. PAST SURGICAL HISTORY: Thyroidectomy, hip arthroplasties, hernia repair and appendectomy. MEDICATIONS: Alprazolam, , gabapentin, levofloxacin, Flomax, Myrbetriq. ALLERGIES: None. FAMILY HISTORY: Noncontributory. SOCIAL HISTORY: Lives in [facility]. Remote former history of smoking. Ambulates with difficulty even with the assistance of a walker. PHYSICAL EXAMINATION: VITAL SIGNS: T-max 98.4, blood pressure 98/65, pulse 81, respirations 16 and O2 sat 96%. GENERAL: Appears in no distress. The left hip incision site with the usual postop appearance. No lymphadenopathy. HEENT: Ocular movements are conjugate. Sclerae white. Nasal passages patent. Oral cavity with the only remaining teeth in the lower maxilla with a lot of decay and gum disease. NECK: Supple. No jugular venous distention. LUNGS: With symmetric clear breath sounds. HEART: S1 and S2, regular rate. ABDOMEN: Soft and not distended. No bladder distention. GENITOURINARY: Guerra catheter in place. EXTREMITIES: DJD changes in the knees and ankles. Pulses are 1+ in dorsalis pedis. NEUROLOGIC: Plantar responses are flexure. He is awake and oriented, a little bit of a delay in his replies, but seems to be with no changes in the cognitive function. LABORATORY DATA: White cell count 13 and now 8.2, hemoglobin down to 12.8, MCV 88, platelets 429, 58 % neutrophils and 1% bands. INR 1.1. Sodium 137 and creatinine 0.82. Liver profile normal. Alkali ne phosphatase 244 and albumin 3.3. Gram stain from the current sample with moderate WBCs. No organ isms seen at this point in time. ASSESSMENT AND PLAN: Chronic left hip implant infection, status post removal of the implant and plac ement of a spacer which is one those functional spacers, which patient will likely retain indefinitel y. We will wait for the cultures and continue vancomycin and Rocephin for the time being or vancomyc in and Zosyn and PICC line placement and treat for a protracted period of time following which I woul d continue with suppressive therapy. According to this susceptibility, the organisms are isolated. The most likely scenario here includes coagulase negative staphylococci, propionibacterium, Streptoco cci, and corynebacterium. MRSA, MSSA and gram negative rods, less likely, although not completely ru led out.
[2017-07-04] MEDS: Morphine 4 MG/ML VIAL SLOW IVP PRN ×6 (00:28→21:35)
[2017-07-04 04:28] LABS: Hematocrit 37.4 % (42.0-52.0); Mean Platelet Volume 5.9 fL (7.4-10.4); Red Blood Cell (RBC) Count 4.26 mill/uL (4.70-6.10); White Blood Cell (WBC) Count 9.3 thou/uL (4.8-10.8)
[2017-07-04] MEDS: Levothyroxine Sodium 88 MCG TAB PO SCH (05:51)
[2017-07-04] MEDS: Vancomycin HCl 1.5 GM in Sodium Chloride 0.9% 250 ML 300 ML IVPB SCH ×2 (06:41→17:48)
[2017-07-04] MEDS: Furosemide 40 MG TAB PO SCH ×2 (06:48→14:11)
[2017-07-04] MEDS: HYDROcodone/Acetaminophen 10/325 mg Tablet PO PRN ×2 (08:31→19:36)
[2017-07-04] MEDS: Senokot S 8.6-50 MG TAB PO SCH ×2 (09:39→19:41)
[2017-07-04] MEDS: ALPRAZolam 0.5 MG TAB PO SCH ×3 (09:41→19:41)
[2017-07-04] MEDS: Gabapentin 300 MG CAP PO SCH ×3 (09:41→19:41)
[2017-07-04] MEDS: Ferrous Gluconate 324 MG TAB PO SCH (09:41)
[2017-07-04] MEDS: Tamsulosin HCl 0.4 MG CAP PO SCH ×2 (09:41→19:41)
[2017-07-04] MEDS: Famotidine 20 MG TAB PO SCH ×2 (09:41→19:40)
[2017-07-04] MEDS: Metoprolol Tartrate 25 MG TAB PO SCH ×2 (09:41→19:40)
[2017-07-04] MEDS: Enoxaparin Sodium 40 MG/0.4 ML SYRINGE SC SCH (09:42)
[2017-07-04] MEDS: Enzalutamide [Xtandi] 40 MG CAPSULE PO SCH (09:43)
[2017-07-04] MEDS: cefTRIAXone\\ROCEPHIN 1 GM, Syringe 0.4 ML in Sterile Water 9.6 ML SLOW IVP SCH (14:11)
--- NOTE | 2017-07-04 14:34 | PDOC.PN ---
- Subjective Encounter Start Date: 07/04/17 Encounter Start Time: 14:31 Mr. Herring was seen today in follow-up of medical concerns surrounding revision of left total hip. He says he is feeling fine. He denies shortness of breath. - Objective Resuscitation Status: Resuscitation Status FULL:Full Resuscitation MAR Reviewed: Yes Vital Signs & Weight: Vital Signs (12 hours) Temp Pulse Resp BP Pulse Ox 07/04/17 08:00 98.5 F 75 16 97 07/04/17 07:04 98.5 F 75 16 104/68 94 L 07/04/17 06:00 95 Weight Admit Weight 186 lb 1.12 oz Weight 186 lb 1.12 oz I&O: 07/03/17 07/04/17 07/05/17 06:59 06:59 06:59 Intake Total 1400 720 480 Output Total 850 3675 Balance 550 -2955 480 Result Diagrams: 07/04/17 03:50 07/03/17 03:21 Phys Exam - Physical Examination HEENT: PERRLA Respiratory: no wheezing, no rales, no rhonchi, clear to auscultation bilateral Cardiovascular: RRR, no significant murmur Gastrointestinal: soft, non-tender, positive bowel sounds Musculoskeletal: no edema Dx/Plan (1) Failed total hip arthroplasty Code(s): T84.018A - BROKEN INTERNAL JOINT PROSTHESIS, OTHER SITE, INIT ENCNTR; Z96.649 - PRESENCE OF UNSPECIFIED ARTIFICIAL HIP JOINT Status: Acute (2) Left hip pain Code(s): M25.552 - PAIN IN LEFT HIP Status: Acute Comment: s/p surgery, post op day 1 (3) Anxiety and depression Code(s): F41.8 - OTHER SPECIFIED ANXIETY DISORDERS Status: Chronic (4) Hypothyroidism Code(s): E03.9 - HYPOTHYROIDISM, UNSPECIFIED Status: Chronic (5) Physical deconditioning Code(s): R53.81 - OTHER MALAISE Status: Chronic - Plan * Patient is s/p revision of left total hip replacement- Orthopedic evaluation noted * There is a possible infection in the hip joint- continue Zosyn and rocephin * Awaiting further recommendations from ID * Hypothyroid- he is clinically euthyroid * Continue PT/OT.
[2017-07-05 04:39] LABS: Hematocrit 35.9 % (42.0-52.0); Mean Platelet Volume 6.1 fL (7.4-10.4); White Blood Cell (WBC) Count 6.5 thou/uL (4.8-10.8)
[2017-07-05] MEDS: Furosemide 40 MG TAB PO SCH ×2 (05:54→13:53)
[2017-07-05] MEDS: Levothyroxine Sodium 88 MCG TAB PO SCH (05:54)
[2017-07-05] MEDS: Morphine 4 MG/ML VIAL SLOW IVP PRN ×3 (06:00→15:30)
[2017-07-05] MEDS: Vancomycin HCl 1.5 GM in Sodium Chloride 0.9% 250 ML 300 ML IVPB SCH ×2 (06:10→18:10)
[2017-07-05] MEDS: Gabapentin 300 MG CAP PO SCH ×2 (08:21→13:53)
[2017-07-05] MEDS: ALPRAZolam 0.5 MG TAB PO SCH ×2 (08:21→13:53)
[2017-07-05] MEDS: Metoprolol Tartrate 25 MG TAB PO SCH (08:21)
[2017-07-05] MEDS: Enoxaparin Sodium 40 MG/0.4 ML SYRINGE SC SCH (08:21)
[2017-07-05] MEDS: Tamsulosin HCl 0.4 MG CAP PO SCH (08:21)
[2017-07-05] MEDS: Ferrous Gluconate 324 MG TAB PO SCH (08:21)
[2017-07-05] MEDS: Senokot S 8.6-50 MG TAB PO SCH (08:21)
[2017-07-05] MEDS: Famotidine 20 MG TAB PO SCH (08:21)
[2017-07-05] MEDS: HYDROcodone/Acetaminophen 10/325 mg Tablet PO PRN ×3 (08:24→17:49)
[2017-07-05] MEDS: Enzalutamide [Xtandi] 40 MG CAPSULE PO SCH (08:26)
--- NOTE | 2017-07-05 10:53 | PDOC.PN ---
- Subjective Encounter Start Date: 07/05/17 Encounter Start Time: 10:51 Mr. Herring was seen today in follow-up for infected hip joint. He says the pain in his left hip has improved some. He does not have any additional complaints. - Objective Resuscitation Status: Resuscitation Status FULL:Full Resuscitation MAR Reviewed: Yes Vital Signs & Weight: Vital Signs (12 hours) Temp Pulse Resp BP Pulse Ox 07/05/17 08:00 98.1 F 61 18 101/66 95 Weight Admit Weight 186 lb 1.12 oz Weight 186 lb 1.12 oz I&O: 07/04/17 07/05/17 07/06/17 06:59 06:59 06:59 Intake Total 720 1070 240 Output Total 3675 2000 Balance -5178 -930 240 Result Diagrams: 07/05/17 03:58 07/03/17 03:21 Phys Exam - Physical Examination HEENT: PERRLA Respiratory: no wheezing, no rales, no rhonchi, clear to auscultation bilateral Cardiovascular: RRR, no significant murmur Gastrointestinal: soft, non-tender, positive bowel sounds Musculoskeletal: no edema Dx/Plan (1) Failed total hip arthroplasty Code(s): T84.018A - BROKEN INTERNAL JOINT PROSTHESIS, OTHER SITE, INIT ENCNTR; Z96.649 - PRESENCE OF UNSPECIFIED ARTIFICIAL HIP JOINT Status: Acute (2) Left hip pain Code(s): M25.552 - PAIN IN LEFT HIP Status: Acute Comment: s/p surgery, post op day 1 (3) Anxiety and depression Code(s): F41.8 - OTHER SPECIFIED ANXIETY DISORDERS Status: Chronic (4) Hypothyroidism Code(s): E03.9 - HYPOTHYROIDISM, UNSPECIFIED Status: Chronic (5) Physical deconditioning Code(s): R53.81 - OTHER MALAISE Status: Chronic - Plan * Patient was seen by Orthopedics and has been cleared to transfer to [facility] * Awaiting further recommendations from ID * Hypothyroidism- stable- clinically euthyroid- continue Levothyroxin * Awaiting [facility] transfer.
[2017-07-05] MEDS: cefTRIAXone\\ROCEPHIN 1 GM, Syringe 0.4 ML in Sterile Water 9.6 ML SLOW IVP SCH (14:30)
[2017-07-05 14:37] LABS: Vancomycin, Random 38.5 ug/mL (See Comment)
[2017-07-05 15:33] VITALS: BP 112/74; TEMP 97.4
[2017-07-05 17:55] LABS: Vancomycin, Trough 34.3 ug/mL
--- NOTE | 2017-07-07 15:04 | EKG ---
Test Reason : Blood Pressure : / mmHG Vent. Rate : 069 BPM Atrial Rate : 069 BPM P-R Int : 176 ms QRS Dur : 184 ms QT Int : 458 ms P-R-T Axes : 036 -67 084 degrees QTc Int : 490 ms Atrial-sensed ventricular-paced rhythm Abnormal ECG When compared with ECG of 13-APR-2017 12:39, Vent. rate has increased BY 9 BPM Confirmed by CARLOS ALBERTO PRADO (2) on 07/07/2017 3:03:35 PM Referred By: DAVID Confirmed By:CARLOS ALBERTO PRADO
== END 2017-07-05 18:32 | DRG 467 ==
LOC: ERS 05:38 → T4-B 11:51
PROVIDERS: ADMIT Family Medicine; ATTEND Family Medicine
PROC: 0SRB0J9 Replacement of Left Hip Joint with Synthetic Substitute, Cemented, Open Approach (ICD-10-PCS; principal; 2017-07-03)
PROC: 0SPB0JZ Removal of Synthetic Substitute from Left Hip Joint, Open Approach (ICD-10-PCS; 2017-07-03)
PROC: 02HV33Z Insertion of Infusion Device into Superior Vena Cava, Percutaneous Approach (ICD-10-PCS; 2017-07-03)
PROC: B518YZA Fluoroscopy of Superior Vena Cava using Other Contrast, Guidance (ICD-10-PCS; 2017-07-03)
DX: T84.031A Mechanical loosening of internal left hip prosthetic joint, initial encounter (principal); M86.9 Osteomyelitis, unspecified; I49.5 Sick sinus syndrome; T84.52XA Infection and inflammatory reaction due to internal left hip prosthesis, initial encounter; T84.021A Dislocation of internal left hip prosthesis, initial encounter; C61 Malignant neoplasm of prostate; E89.0 Postprocedural hypothyroidism; D64.9 Anemia, unspecified; E78.5 Hyperlipidemia, unspecified; D72.828 Other elevated white blood cell count; M19.90 Unspecified osteoarthritis, unspecified site; Z96.643 Presence of artificial hip joint, bilateral; Z95.0 Presence of cardiac pacemaker; Z98.49 Cataract extraction status, unspecified eye; R29.6 Repeated falls; Z85.850 Personal history of malignant neoplasm of thyroid; F41.8 Other specified anxiety disorders
CPT/HCPCS: 36415; 36569; 71010; 72170; 80048; 80053; 80202; 85007; 85025; 85027; 85610; 85652; 85730; 86140; 87070; 87076; 87205; 93005; 93010; 93306; 96374; 96375; 96376; A4216; C1713; C1751; C1776; G0390; G8978-GP-CM; G8979-GP-CK; G8987-GO-CM; G8988-GO-CK; J0696; J1650; J2270; J2405; J2704; J3010; J3260; J3370; J7050

== ENCOUNTER 2017-07-26 15:44 | Outpatient (CLI) | payer MEDICARE ==
--- NOTE | 2017-07-26 18:19 | RAD ---
THREE VIEW LEFT HIP SERIES 07/26/17 COMPARISON: 07/02/17 INDICATION: History of fracture dislocation. FINDINGS: There is a left hip prosthesis with displacement of the left femoral head prosthesis from the left ac etabulum. The femoral head prosthesis is located lateral and cephalad to the appropriate position. Th ere is no acute fracture of the osseous structures. Brachytherapy seeds are seen overlying the low ce ntral pelvis. IMPRESSION: Dislocation of prosthetic left hip. No acute fracture visualized. POS: BRANDON
== END 2017-07-26 15:45 | disposition home or self-care (01) ==
LOC: RAD 15:44
PROVIDERS: ATTEND Orthopaedic Surgery
DX: M25.552 Pain in left hip (principal); T84.021D Dislocation of internal left hip prosthesis, subsequent encounter

== ENCOUNTER 2018-01-07 11:09 | Inpatient (IN) | payer MEDICARE ==
[2018-01-07 12:12] LABS: #Basophils 0.1 thou/uL (0.0-0.2); #Eosinphils 0.1 thou/uL (0.0-0.7); #Lymphocytes 2.3 thou/uL (1.20-3.40); #Monocytes 0.5 thou/uL (0.11-0.59); #Neutrophils 3.3 thou/uL (1.40-6.50); %Basophils 1.1 % (0.0-1.0); %Eosinophils 1.5 % (0.0-10.0); %Lymphocytes 36.2 % (21.0-51.0); %Monocytes 8.6 % (0.0-10.0); %Neutrophils 52.5 % (42.0-75.0); Hemoglobin 14.7 g/dL (14.0-18.0); Mean Corpuscular HGB CONC 32.4 g/dL (32.0-36.0); Mean Corpuscular Hemoglobin 29.2 pg (27.0-31.0); Mean Corpuscular Volume 90.3 fl (80.0-94.0); Mean Platelet Volume 6.8 fL (7.4-10.4); Platelet Count 296 thou/uL (130-400); RBC Distribution Width 13.2 % (11.5-14.5); Red Blood Cell (RBC) Count 5.04 mill/uL (4.70-6.10); White Blood Cell (WBC) Count 6.2 thou/uL (4.8-10.8)
--- NOTE | 2018-01-07 12:26 | RAD ---
FRONTAL VIEW CHEST: Date: 01/07/18 INDICATION: Chest pain, left-sided. New onset. FINDINGS: There is enlargement of the cardiac silhouette and pulmonary vasculature. Left-sided cardiac pacing d evice remains in place. No new consolidation of significance is seen. There is mild patchy density at each lower lung zone and a mild generalized interstitial prominence, bilaterally. IMPRESSION: Grossly stable chest, with findings to indicate CHF. Correlate clinically. POS: BRANDON
[2018-01-07 12:28] LABS: ALT (SGPT) 18 U/L (8-55); AST (SGOT) 20 U/L (5-34); Albumin 3.9 g/dL (3.4-4.8); Alkaline Phosphatase 149 U/L (40-150); Anion Gap 14 mmol/L (10-20); BUN (Urea Nitrogen) 20 mg/dL (8.4-25.7); Bilirubin, Total 0.4 mg/dL (0.2-1.2); Calc. Creatinine Clearance 0 mL/min (70-130); Calcium 9.3 mg/dL (7.8-10.44); Carbon Dioxide 22 mmol/L (23-31); Chloride 106 mmol/L (98-107); Estimated GFR-MDRD 63; Globulin 3.6 g/dL (2.4-3.5); Glucose 71 mg/dL (83-110); Potassium 5.6 mmol/L (3.5-5.1); Protein, Total 7.5 g/dL (5.8-8.1); Sodium 136 mmol/L (136-145)
[2018-01-07 12:33] LABS: CKMB 1.6 ng/mL (0-6.6); Troponin I Less than 0.010 ng/mL (< 0.028)
[2018-01-07] MEDS ORDERED: oxyCODONE/Acetaminophen 5 mg/325 mg Tablet PO ONE (12:45)
--- NOTE | 2018-01-07 14:20 | CT ---
CT ANGIOGRAM THORAX WITH IV CONTRAST AND 3D RECONSTRUCTIONS: Date: 01/07/18 HISTORY: Chest pain that started 1 hour prior to arrival. Pain is sharp in nature. COMPARISON: CT angiogram abdomen on 04/12/17. FINDINGS: A dual lead left subclavian cardiac pacemaking device is noted in place. There are multiple collatera l vessels with dense contrast seen throughout the mediastinum and in a paravertebral location in the upper thoracic spine. There is suggested narrowing involving the innominate vein, but contrast does e xtending into the SVC. The significantly dense contrast within the collateral vessels about the media stinum does result in artifact limiting evaluation of the pulmonary arteries, but no definite filling defect is seen in the pulmonary arteries to suggest a pulmonary embolus. Vascular calcifications are seen in the thoracic aorta. The thoracic aorta is ectatic to mildly dilat ed measuring 4.5 cm in diameter. There is no evidence of an aortic dissection. There are interstitial and patchy parenchymal densities seen within the posterior aspect of the lower lobes bilaterally, as well as in the region of the posterior aspect of each upper lobe. While these could be related to chronic findings, an acute infectious process cannot be entirely excluded. No den se area of consolidation or pleural effusion is present. There is dependent atelectasis at each lung base. The heart is enlarged. There is suggestion of a 1.8 cm hypodense nodule in the left lobe of the thyroid gland. Dense contras t in the internal jugular vein results in streak artifact through this region limiting adequate evalu ation. Upper abdomen demonstrates an exophytic superior pole left renal cyst seen on prior exam. A hiatal hernia is seen with the fundus of the stomach above the level of the hemidiaphragms. Degenerative changes are seen in the spine. There is mild height loss of the T11 vertebral body, but this is unchanged compared to a study on . IMPRESSION: 1. Suggestion of hypodense nodule left lobe of the thyroid gland measuring 1.8 cm. Nonemergent thyro id ultrasound is recommended. 2. Multiple collateral vessels about the mediastinum and in a paravertebral location with suggested narrowing in the innominate vein likely related to the multiple collateral vessels. The denseness of the contrast in the collateral vessels does result in significant spray artifact about the upper medi astinum. 3. Cardiomegaly. 4. No CT evidence of a pulmonary embolus. 5. 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 6. Interstitial densities predominantly periphery of lungs bilaterally and involving the bilateral l ower lobes, as well as involving the upper lobes, greater on the left. Findings may be related to chr onic lung changes, but superimposed more acute infectious process cannot be entirely excluded. 7. Hiatal hernia. 8. Left renal cyst. 9. Stable compression fracture T11 vertebral body. POS: BRANDON
[2018-01-07] MEDS ORDERED: Ondansetron HCl/PF 4 MG/2 ML Vial IVP PRN ×2 (16:00→20:09)
[2018-01-07] MEDS ORDERED: Ondansetron ODT 4 MG TAB SL PRN (16:00)
[2018-01-07] MEDS ORDERED: HYDROcodone/Acetaminophen 10/325 mg Tablet ONE (16:58)
--- NOTE | 2018-01-07 18:41 | CON ---
DATE OF CONSULTATION: 01/07/2018 REASON FOR CONSULTATION: Bradycardia. HISTORY OF PRESENT ILLNESS: Mr. Herring is a very pleasant 82-year-old gentleman who has been seen and evaluated in the past. He has a history of pacemaker implantation. 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 Aiyana rapp recently presented with atypical chest pain. He had a recent stress study performed in the last 2 years and was negative for ischemia. He also gives a history of having a near syncopal episode. He was seen and evaluated in the emergency room where his heart rate decreased into the 30s. He therefo re has been subsequently admitted. His previous pacemaker history does include high threshold on his RV lead. It appeared the RV lead w as failing. His generator had a change out in 03/2016. There was attempt at RV lead replacement, bu t could not be performed due to scarring at the superior vena cava, right atrial junction. It was th en aborted and outputs were increased. PAST MEDICAL HISTORY: Total hip replacement, pacemaker placement, thyroidectomy, sick sinus syndrome and SVT. PAST SURGICAL HISTORY: None. SOCIAL HISTORY: Recently quit all tobacco products. HOME MEDICATIONS: Include iron, ibuprofen, Lasix, oxycodone, Myrbetriq, Flomax, and Levothyroxine. REVIEW OF SYSTEMS: Ten-point review of systems is reviewed and as above, otherwise negative. PHYSICAL EXAMINATION: GENERAL: Patient is a pleasant male who is in no acute distress. The patient appears his stated age . VITAL SIGNS: Blood pressure 110/70, pulse 74, respirations 20. NEUROLOGIC: The patient is alert and oriented times 3 with no focal neurologic deficits. HEENT: Sclerae without icterus. Mouth has moist mucous membranes with normal pallor. NECK: No JVD. Carotid upstroke brisk. No bruits bilaterally. LUNGS: Clear to auscultation with unlabored respirations. BACK: No scoliosis or kyphosis. CARDIAC: Regular rate and rhythm with normal S1 and S2. No S3 or S4 noted. No significant rubs, mu rmurs, thrills, or gallops noted throughout the precordium. PMI is not displaced. There is no alejandro ternal heave. ABDOMEN: Soft, nontender, nondistended. No peritoneal signs present. No hepatosplenomegaly. No ab normal striae. EXTREMITIES: 2+ femoral and 2+ dorsalis pedis pulses. No cyanosis, clubbing, or edema. SKIN: No gross abnormalities. PERTINENT LABORATORY DATA: Hemoglobin 14.7, creatinine 1.12, globulin 3.6. Pacemaker interrogation. Patient did have reprogramming increasing his RV output of 5 millivolts. IMPRESSION: 1. Failed right ventricular lead. 2. Presyncope. 3. Atypical chest pain. RECOMMENDATIONS: At this point, Mr. Herring's EKG and troponin are negative. His most pressing issue is his RV lead. After reprogramming his RV lead, we will consult with EP in a.m. and discuss replaci ng the RV lead. Patient was subsequently being admitted. I will keep n.p.o. after midnight.
--- NOTE | 2018-01-07 19:55 | HP ---
DATE OF ADMISSION: 01/07/2018 CHIEF COMPLAINT: Chest pain. HISTORY OF PRESENT ILLNESS: This is an 82-year-old white male with a known history of sick sinus syn drome and pacemaker. He was reaching over his head to grab something off a shelf and developed a sha rp chest pain across the front of his chest. This came and went in intensity, was associated with so me mild sweating, but no other symptoms. The patient was brought to the emergency room. In the ER, he had the pain resolved. He had it for about an hour or 2. He had a negative cardiac workup in the emergency room and they were about to send him back to the [facility] when he had bradycardia down to the 30s. The patient had his pacemaker interrogated here in the emergency room at which point yola herzog determined that it was monitoring his heart rate, but it was not capturing when it tried to pace h is heart rhythm, so he is being admitted to the hospital. Dr. Carson has been consulted from the emergency room and the [employer] people have been contacted as well. PAST MEDICAL HISTORY: 1. Sick sinus syndrome. 2. Thyroid carcinoma. 3. Prostate carcinoma with chronic pain. 4. Sciatica. 5. Dyslipidemia. 6. Hypothyroidism. 7. Degenerative joint disease. 8. Hyperlipidemia. 9. Chronic neck and left hip pain. 10. 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 PAST SURGICAL HISTORY: 1. Partial thyroidectomy. 2. Bilateral total hip arthroplasties with complications and infection of the left with multiple rev isions and some bone excision from the left hip, now not able to walk very well. 3. Status post bilateral inguinal hernia repair. 4. Appendectomy. 5. Eye surgery. PSYCHIATRIC HISTORY: Depression. SOCIAL HISTORY: The patient lives at [facility], gets around in a wheelch air. He has 2 living sons. He is an ex-smoker, quit 5-6 years ago. Previous heavy drinker, quit 5- 6 years ago. No illicit drug use. FAMILY HISTORY: Mother due to stroke at age of 89. No other significant medical history as far as the patient knows. ALLERGIES: No known drug allergies. CURRENT MEDICATIONS: 1. Gabapentin 300 mg 3 times a day. 2. Tamsulosin 0.4 mg 2 caps once a day. 3. Xtandi 40 mg 4 caps once a day. 4. Alprazolam 0.25 mg 2 tablets 3 times a day. 5. Levothyroxine 88 mcg daily. 6. Myrbetriq 50 mg once a day. 7. Ferrous sulfate 325 mg once a day. 8. Loratadine 10 mg once a day. 9. Oxycodone 10/325 mg 1 tablet every 4 hours as needed for pain. 10. Ibuprofen 200 mg as needed for pain. 11. Furosemide 40 mg 1 tablet twice a day. REVIEW OF SYSTEMS: Constitutional: No fevers or chills. Eyes: No double vision or blurred vision. ENT: No congestion. He does have a chronic runny nose. No sore throat. Cardiovascular: See HPI . Chest pain is currently resolved. No palpitations or racing heart. Pulmonary: No coughing, no w heezing, no shortness of breath. Gastrointestinal: No abdominal pain, no nausea or vomiting, no demetrice rrhea. He does have constipation because of his medications. Genitourinary: No dysuria or hematuri a. Musculoskeletal: He has chronic low back pain. He has chronic pelvic pain from his prostate can cer. He also has chronic left hip pain from his revised left hip replacement with infection. No new musculoskeletal complaints. Skin: No rashes or lesions noted. Neurologic: He does not have any n umbness, tingling or focal weakness. PHYSICAL EXAMINATION: VITAL SIGNS: Blood pressure 151/64, pulse 38, respirations 15, O2 sat 97% on room air, temperature 9 8.0. GENERAL: This is a well-developed, overweight white male, in no acute distress. HEENT: Pupils equal, round and reactive to light. Oropharynx clear without lesions, erythema or exu date. NECK: Supple, no lymphadenopathy, no thyroid nodules or enlargement. No JVD. HEART: Regular rhythm and bradycardic alternating between 30 and 60 beats per minute. No murmurs. LUNGS: Clear to auscultation bilaterally. No wheezes, crackles, or rhonchi. Normal respiratory eff ort. ABDOMEN: Soft, obese, nontender to palpation, normoactive bowel sounds. No hepatosplenomegaly or ot her masses. EXTREMITIES: No clubbing, cyanosis or edema. The patient does have a significantly shortened left l ower extremity compared to his right lower extremity. SKIN: No rashes or other lesions noted. NEUROLOGIC: The patient has intact sensation throughout. He has 5/5 strength in bilateral upper ext remities. He has no facial droop. PSYCHIATRIC: Alert and oriented x3. Normal mood and affect. LABORATORY DATA: CBC within normal limits. Coagulation profile shows an elevated D-dimer of 1.86. Complete metabolic panel was notable for a potassium of 5.6, carbon dioxide of 22, glucose of 71. Ca rdiac marker set negative x1. Brain natriuretic peptide is 176, which is up from the last check 2 ye ars ago when it was 64. On EKG, the patient has sinus bradycardia with a nonspecific interventricula r conduction delay, wide QRS rhythm with frequent PVCs and fusion complexes. No significant ST segme nt elevations or depression. Chest x-ray, I did review the chest x-ray along with the radiologist's report and it does show a left-sided pacemaker, enlargement of the cardiac silhouette and pulmonary v asculature along with some mild patchy density in each lower lung zone and mild generalized interstit ial prominence, bilaterally consistent with congestive heart failure. CTA of the chest shows cardiom egaly. No evidence of pulmonary embolism. 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 Left thyroid nodule of 1.8 cm along with some interstitial changes, which may be chronic versus acute problems and a stable compression fracture of T11. ASSESSMENT: 1. Chest pain, now resolved, atypical in nature, possibly musculoskeletal from stretching and reachi ng over his head. We will continue cardiac markers here in the hospital. Dr. Carson has been con sulted. 2. Sick sinus syndrome with a malfunctioning pacemaker. We will put the patient on telemetry and inEarth evaluate the pacemaker and see if he needs to have a replacement done. 3. Chronic pain from prostate cancer. We will resume the patient's home medications. 4. Gastrointestinal prophylaxis. The patient is on Pepcid twice a day. 5. Deep venous thrombosis prophylaxis, put the patient on Lovenox subcu and on sequential compressio n devices. 6. Chronic left hip pain and dysfunction. We will have PT evaluate and help the patient with contin ued mobility during the hospitalization. 7. Code status. I did discuss with the patient. He is a FULL CODE. Should he be incapacitated, md s medical power of contract attorney is his son, Lonnie Herring.
[2018-01-07] MEDS ORDERED: Ibuprofen 200 MG TAB PO PRN (20:09)
[2018-01-07] MEDS ORDERED: Ondansetron ODT 4 MG TAB PO PRN (20:09)
[2018-01-07] MEDS ORDERED: Senokot 8.6 MG TAB PO PRN (20:09)
[2018-01-07] MEDS ORDERED: Loratadine 10 MG TAB PO PRN (20:09)
[2018-01-07] MEDS ORDERED: Bisacodyl 5 MG TAB PO PRN (20:09)
[2018-01-07] MEDS ORDERED: Famotidine 20 MG TAB PO SCH (21:00)
[2018-01-07 21:02] LABS: Anion Gap 13 mmol/L (10-20); BUN (Urea Nitrogen) 21 mg/dL (8.4-25.7); Calc. Creatinine Clearance 0 mL/min (70-130); Calcium 8.7 mg/dL (7.8-10.44); Carbon Dioxide 20 mmol/L (23-31); Chloride 107 mmol/L (98-107); Estimated GFR-MDRD 74; Glucose 75 mg/dL (83-110); Potassium 4.2 mmol/L (3.5-5.1); Sodium 136 mmol/L (136-145)
[2018-01-07] MEDS: Sodium Chloride 0.9% 1,000 ML IV SCH (21:29)
[2018-01-07] MEDS: Gabapentin 300 MG CAP PO SCH (21:30)
[2018-01-07] MEDS: oxyCODONE/Acetaminophen 5 mg/325 mg Tablet PO PRN (21:30)
[2018-01-07] MEDS: ALPRAZolam 0.5 MG TAB PO SCH (21:30)
[2018-01-07] MEDS: Docusate 100 MG CAP PO SCH (21:30)
[2018-01-07 22:14] VITALS: BMI 28.1
[2018-01-08] MEDS: Sodium Chloride 0.9% 1,000 ML IV SCH (01:37)
--- NOTE | 2018-01-08 02:20 | CON ---
DATE OF CONSULTATION: 01/07/2018 ELECTROPHYSIOLOGY CONSULTATION REPORT REFERRING PHYSICIAN: Abdullahi Carson M.D. I am seeing Mr. Herring at our [facility] ER as an electrophysiology pharmacy consultant. His problems are: 1. Pacemaker malfunction with poor ventricular capture demonstrated on monitoring associated with mo derate symptoms A. 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 2. History of pacemaker implantation 12 years ago and most recent generator change on 04/06/2016 wit h possible issues with a RV lead even then. 3. History of preserved LV function based on a 2D echo on 06/30/2017 with a LVEF of 50%-55%, moderat e right atrial enlargement, mild mitral regurgitation, [id number] tricuspid regurgitation, mild pulmonic regurgitation present. 4. History of prostate cancer and thyroid cancer. ALLERGIES: None. MEDICATIONS: Currently include please refer to list. Currently, on Monclova, aspirin, and Percocet. SUBJECTIVE: Mr. Herring is here due to atypical chest pains. He was evaluated in the ER and found to have no infarction. Repeated Troponin levels were negative. He was getting ready to be discharged, but then suddenly on monitor, he was noted to be bradycardic despite of continued pacing spikes after no capture was noted and the [employer] cable technician was alerted, who evaluated the patient and found i ndeed that the RV lead capture was suboptimal. The RV lead output was increased and since he is in r egular paced rhythm. The patient had mild symptoms while bradycardic, but did not completely pass out. He has similar sym ptoms as an outpatient as well. He denies PND or orthopnea. At this point, chronic pains due to his cancer is noted for which he is on narcotics. REVIEW OF SYSTEMS: Twelve-point systems otherwise unremarkable. PAST MEDICAL HISTORY: As above with history of sciatica, dyslipidemia, hypothyroidism, degenerative joint disease, hyperlipidemia, chronic neck and left hip pain and depression, prior history of falls. SOCIAL HISTORY: The patient denies smoking, ETOH, or drug abuse currently, although he might have schwab d some smoking and heavy alcohol use history in the past. He is living in [facility] currently and he ambulates with a rolling walker. FAMILY HISTORY: Noncontributory. OBJECTIVE DATA: VITAL SIGNS: Blood pressure 102/74, heart rate is 65, respirations 18, temperature 97.4 degrees Fahr enheit. GENERAL: He is alert and oriented man, in no apparent distress. NECK: Supple. Jugular veins not distended. CHEST: Coarse without crackles. CARDIOVASCULAR: Heart sounds are regular to rate and rhythm. No murmur or gallop. ABDOMEN: Benign. Bowel sounds positive. EXTREMITIES: Lower extremities without edema, clubbing, or cyanosis. Pulses are adequate. NEUROLOGIC: The patient nonfocal. MUSCULOSKELETAL: No joint swelling or deformities. SKIN: Without rash. DATABASE: The EKG is reviewed, initially reveals sinus rhythm/atrial paced rhythm at 63 beats per mi nute with ventricular pacing, tracking of the AV. Subsequent EKG at 3 hours later reveals sinus rhyt hm with ventricular pacing demonstrating no capture. Interrogation of the pacemaker reveals a Medtronic Versa dual chamber pacemaker with implant date of 04/06/2016, there was a generator change. Lead voltage is 2.79 volts. The lead parameters are sensi ng 1.4-2.8 millivolts in atrium and 8-11 millivolts in the right ventricle. The lead impedance is 52 1 ohms in atrium and 668 ohms in right ventricle. Capture thresholds though elevated, normal in the right atrium at 1.5 volts at 0.4 milliseconds somewhat elevated at 2.25 volts at 1 millisecond in the right ventricle. Pacemaker was reprogrammed 5 volts at 1 millisecond. Reviewing the lead trends wi th the right ventricle since 12/2016 reveals stable impedances that change threshold seems to have be en over 2.25 even at that time. LABORATORY DATA: Sodium 136, potassium 5.6, BUN 20, creatinine 1.12. AST and ALT are 20 and 18. Wh ite count is 6.2, hemoglobin 14.7, platelet count is 296. INR is not checked today. D-dimer is 1.86 . Troponin I is less than 0.01. CT chest was reviewed and unremarkable. This is the patency of the left subclavian vein still presen t. ASSESSMENT AND PLAN: Mr. Herring is a pleasant, 82-year-old gentleman with history of thyroid and pros horn cancer, high-grade AV block with 2:1 AV conduction on EKG when pacemaker capture failure was det ected. This likely was due to accurately increasing thresholds possibly due to the hyperkalemia dete cted on laboratory data. It seemed the already capture issues has been chronic, and we were able to avert acute problems by in creasing the RV output. My plan would be at this point: 1. We will evaluate the patient's threshold trends as I discussed with the [employer] inventory representative. Also, we will evaluate the battery longevity with a new setting. 2. Optimization of patient's potassium levels should be made. 3. If further worsening of the RV threshold is seen, consider addition of a new RV lead. The patien t is somewhat of a poor candidate in his current state for RV lead extraction.
[2018-01-08] MEDS: oxyCODONE/Acetaminophen 5 mg/325 mg Tablet PO PRN ×3 (03:05→12:33)
[2018-01-08 05:21] LABS: #Basophils 0.1 thou/uL (0.0-0.2); #Eosinphils 0.1 thou/uL (0.0-0.7); #Lymphocytes 2.6 thou/uL (1.20-3.40); #Monocytes 0.6 thou/uL (0.11-0.59); #Neutrophils 2.2 thou/uL (1.40-6.50); %Basophils 1.6 % (0.0-1.0); %Eosinophils 2.3 % (0.0-10.0); %Lymphocytes 45.6 % (21.0-51.0); %Monocytes 11.1 % (0.0-10.0); %Neutrophils 39.4 % (42.0-75.0); Hemoglobin 13.4 g/dL (14.0-18.0); Mean Corpuscular HGB CONC 34.9 g/dL (32.0-36.0); Mean Corpuscular Hemoglobin 31.3 pg (27.0-31.0); Mean Corpuscular Volume 89.5 fl (80.0-94.0); Mean Platelet Volume 6.5 fL (7.4-10.4); Platelet Count 263 thou/uL (130-400); RBC Distribution Width 12.9 % (11.5-14.5); Red Blood Cell (RBC) Count 4.28 mill/uL (4.70-6.10); White Blood Cell (WBC) Count 5.6 thou/uL (4.8-10.8)
[2018-01-08 05:40] LABS: Anion Gap 9 mmol/L (10-20); BUN (Urea Nitrogen) 19 mg/dL (8.4-25.7); Calc. Creatinine Clearance 84 mL/min (70-130); Calcium 8.8 mg/dL (7.8-10.44); Carbon Dioxide 23 mmol/L (23-31); Chloride 111 mmol/L (98-107); Estimated GFR-MDRD 77; Glucose 76 mg/dL (83-110); Potassium 3.9 mmol/L (3.5-5.1); Sodium 139 mmol/L (136-145)
[2018-01-08] MEDS: ALPRAZolam 0.5 MG TAB PO SCH (05:44)
[2018-01-08] MEDS ORDERED: Levothyroxine Sodium 88 MCG TAB PO SCH (06:00)
[2018-01-08] MEDS ORDERED: Ferrous Sulfate 325 MG TAB PO SCH (08:00)
[2018-01-08] MEDS: Docusate 100 MG CAP PO SCH (08:11)
[2018-01-08] MEDS: Gabapentin 300 MG CAP PO SCH (08:11)
[2018-01-08] MEDS ORDERED: Prevnar 13-Val Conj/PF 0.5 ML SYRINGE IM ONE (09:00)
[2018-01-08] MEDS ORDERED: Enoxaparin Sodium 40 MG/0.4 ML SYRINGE SC SCH (09:00)
[2018-01-08] MEDS ORDERED: Furosemide 20 MG TAB PO SCH (09:00)
[2018-01-08] MEDS ORDERED: Tamsulosin HCl 0.4 MG CAP PO SCH (09:00)
[2018-01-08 11:43] VITALS: BP 142/66; TEMP 98
--- NOTE | 2018-01-08 14:35 | DIS ---
DATE OF ADMISSION: 01/07/2018 DATE OF DISCHARGE: 01/08/2018 DISCHARGE DIAGNOSES: 1. Chest pain, atypical, resolved. 2. Sick sinus syndrome with pacemaker dependence with 2:1 high grade AV conduction block. 3. Pacemaker malfunction with a pacemaker capture failure. 4. Hyperkalemia, resolved. CONSULTATIONS: Dr. Abdullahi Carson with Cardiology Service. Dr. Collin Roper with Electrophysiolog y Service. PERTINENT LAB AND X-RAY FINDINGS: Potassium ranged between 3.9-5.6, creatinine ranged between 0.94-1 .12, estimated GFR ranging between 63-77, troponin I negative x1. BNP 176. CBC within normal limits . Portable chest x-ray dated 01/07/2018 showed no acute cardiopulmonary process. CT angiogram of th e chest dated 01/07/2018 showed hypodense nodule left lobe of the thyroid gland. Cardiomegaly. No e vidence for pulmonary embolus. Multiple chronic findings. Please see dictated report for full detai ls. HOSPITAL COURSE: Patient was admitted to the telemetry unit after presenting with atypical chest marie n in the context of sick sinus syndrome with pacemaker placement. The patient underwent extensive ev aluation including pacemaker interrogation showing incomplete capture related to likely misplaced rig ht ventricular lead. The patient was evaluated by the Cardiology and Electrophysiology service with adjustments to his pacemaker threshold capturing function. The patient was noted on telemetry monito ring with pacemaker dependence with heart rates in the 60s. No other medication adjustments were rec ommended during the hospital course. The patient remained clinically stable throughout the hospital course, tolerating regular oral intake, voiding appropriately and overall remaining clinically stable . I have examined the patient and discussed pertinent studies and followup instructions, at which leida madrid verbalizes understanding and agreement. Patient overall is clinically stable and ready for dis charge 01/08/2018. DISCHARGE MEDICATIONS: 1. Alprazolam 0.5 mg p.o. t.i.d. 2. Xtandi 40 mg 4 tabs p.o. daily. 3. Ferrous sulfate 325 mg p.o. daily. 4. Lasix 40 mg p.o. b.i.d. 5. Gabapentin 300 mg p.o. t.i.d. 6. Synthroid 88 mcg p.o. daily. 7. Loratadine 10 mg p.o. daily. 8. Myrbetriq extended release 50 mg p.o. daily. 9. Oxycodone/acetaminophen 10/325 mg 1 tab p.o. q.4 hours p.r.n. pain. 10. Flomax 0.8 mg p.o. daily. FOLLOWUP: The patient will follow up with his primary care provider, Dr. Richar Morton within 7 da ys of discharge. The patient will follow up with Dr. Collin Roper with Electrophysiology Service and to call his office for appointment time and date. CONDITION ON DISCHARGE: Stable. ACTIVITY: Ad hanna. Rolling walker with ambulation. DIET: Heart healthy. CODE STATUS: FULL. DISPOSITION: Discharged to [facility] 01/08/2018. TIME SPENT: Total time preparing and coordinating discharge 32 minutes.
--- NOTE | 2018-01-09 09:00 | PRG ---
DATE OF SERVICE: 01/08/2018 SUBJECTIVE: Mr. Herring remained asymptomatic overnight. No further dizziness or chest pain noted. OBJECTIVE: VITAL SIGNS: Blood pressure 152/70, heart rate 60, respiration rate 16, temperature 97.2 degrees Fah renheit. The telemetry strips revealed no further loss of ventricular capture, ventricular pacing no ilene throughout sinus rhythm. GENERAL: Reveals an alert, oriented man, in no apparent distress. NECK: Supple. Jugular veins are not distended. CHEST: Left precordial pacemaker site is well healed. ABDOMEN: Benign. Bowel sounds positive. HEART: Sounds are regular to rate and rhythm. No murmur or gallop. SKIN: Without rash. Pace interrogation was reviewed, revealing a chronic elevation of the RV threshold, which seems to be not remarkable change compared to before. Reviewing the capture threshold trends are between 2 over 2.5 since 2017. ASSESSMENT AND PLAN: Mr. Herring is an 82-year-old man with multiple cancers also persisting high grad e AV block requiring a dual chamber pacing. He has had a chronic RV lead with a higher pacing thresh old, which during ER eval noted to be causing suboptimal capture of his ventricule. That issue resol sandra after increasing the pacing threshold to 540 millisecond. On reviewing the prior documentation, patient has had a chronic RV lead threshold elevation and the range currently not excessively differe nt. His impedances are normal. No impending fracture is documented. As I discussed Dr. Carson and Dr. Ansari, original implanting physicians, I think it is reasonable f or now to continue monitoring him with higher ventricular capture output. Although this was short in his battery life. He already had an attempt for awaiting his RV lead with adding extra wire, but wa s unsuccessful. He is somewhat of a poor candidate for lead extraction. Routine followup in the off ice recommended.
== END 2018-01-08 13:43 | disposition home or self-care (01) | DRG 310 ==
LOC: ERS 11:09 → 2NO 16:27
PROVIDERS: ADMIT Emergency Medicine; ATTEND Emergency Medicine
DX: T82.190A Other mechanical complication of cardiac electrode, initial encounter (principal); R07.89 Other chest pain; I49.5 Sick sinus syndrome; E87.5 Hyperkalemia; R55 Syncope and collapse; Z87.891 Personal history of nicotine dependence; E78.5 Hyperlipidemia, unspecified; E03.9 Hypothyroidism, unspecified; E78.00 Pure hypercholesterolemia, unspecified; G89.29 Other chronic pain; M54.2 Cervicalgia; M25.552 Pain in left hip; Z96.643 Presence of artificial hip joint, bilateral; C61 Malignant neoplasm of prostate; C73 Malignant neoplasm of thyroid gland
CPT/HCPCS: 36415; 71045; 71275; 80048; 80053; 82553; 83880; 84484; 85025; 85379; 90471; 90670; 93005; 96360; G0009; J1650; J7050

== ENCOUNTER 2018-08-23 23:46 | Inpatient (IN) | payer MEDICARE ==
[2018-08-24] MEDS ORDERED: cefTRIAXone\\ROCEPHIN 1 GM VIAL ONE (01:17)
[2018-08-24 01:37] LABS: #Eosinphils 0.2 thou/uL (0.0-0.7); #Lymphocytes 1.5 thou/uL (1.20-3.40); #Monocytes 1.7 thou/uL (0.11-0.59); %Basophils 0.2 % (0.0-1.0); %Eosinophils 1.2 % (0.0-10.0); %Lymphocytes 9.4 % (21.0-51.0); %Monocytes 10.1 % (0.0-10.0); %Neutrophils 79.1 % (42.0-75.0); Hemoglobin 12.8 g/dL (14.0-18.0); Mean Corpuscular HGB CONC 33.1 g/dL (32.0-36.0); Mean Corpuscular Hemoglobin 27.2 pg (27.0-31.0); Mean Corpuscular Volume 82.2 fL (78.0-98.0); Mean Platelet Volume 5.5 fL (7.4-10.4); Platelet Count 654 thou/uL (130-400); RBC Distribution Width 12.9 % (11.5-14.5); Red Blood Cell (RBC) Count 4.72 mill/uL (4.70-6.10); White Blood Cell (WBC) Count 16.4 thou/uL (4.8-10.8)
[2018-08-24 01:53] LABS: ALT (SGPT) Less than 7 U/L (8-55); AST (SGOT) 14 U/L (5-34); Alkaline Phosphatase 90 U/L (40-150); Anion Gap 16 mmol/L (10-20); BUN (Urea Nitrogen) 14 mg/dL (8.4-25.7); Bilirubin, Total 0.5 mg/dL (0.2-1.2); Calc. Creatinine Clearance 0 mL/min (70-130); Calcium 9.2 mg/dL (7.8-10.44); Carbon Dioxide 24 mmol/L (23-31); Chloride 95 mmol/L (98-107); Estimated GFR-MDRD 73; Globulin 4.7 g/dL (2.4-3.5); Glucose 121 mg/dL (83-110); Potassium 3.3 mmol/L (3.5-5.1); Protein, Total 7.7 g/dL (5.8-8.1); Sodium 132 mmol/L (136-145)
[2018-08-24] MEDS ORDERED: Morphine 2 MG/ML SYRINGE ONE (02:09)
[2018-08-24] MEDS ORDERED: Ondansetron PF 4 MG/2 ML Vial ONE (02:09)
[2018-08-24] MEDS ORDERED: Potassium Chloride 30 MEQ in Sodium Chloride 0.9% 250 ML 250 ML IVPB SCH (02:15)
[2018-08-24] MEDS ORDERED: HYDROcodone/Acetaminophen 5/325 mg Tablet PO PRN ×2 (05:06)
[2018-08-24] MEDS ORDERED: Acetaminophen 325 MG TAB PO PRN (05:06)
[2018-08-24] MEDS ORDERED: Ondansetron PF 4 MG/2 ML Vial IVP PRN (05:06)
[2018-08-24] MEDS ORDERED: Ondansetron ODT 4 MG TAB SL PRN (05:06)
[2018-08-24] MEDS ORDERED: Morphine 4 MG/ML VIAL SLOW IVP PRN (05:07)
[2018-08-24] MEDS ORDERED: Sodium Chloride 0.45% 1,000 ML IV SCH (05:15)
--- NOTE | 2018-08-24 07:41 | ULT ---
ULTRASOUND WITH DOPPLER DUPLEX VENOUS LOWER EXTREMITY LEFT: CPT: 94114 ICD-10-PCS: B54D INDICATION: Left lower extremity edema, erythema. TECHNIQUE: Color flow Doppler, spectral waveform analysis of pulsed Doppler, and hernandez-scale imaging with tahir kamaljit and augmentation, were used to evaluate the left common femoral, femoral, popliteal, posterior t ibial, and superficial femoral, veins; and the proximal portions of the profunda femoral and greater saphenous, veins. FINDINGS: There is appropriate compressibility and flow within the imaged deep vein system of the left lower ex tremity without evidence of deep venous thrombosis. Within the proximal left lower extremity soft tis sues, there is a focal region of decreased echogenicity, irregular in shape, measuring between 7 and 8 cm in diameter as demonstrated. IMPRESSION: 1. No deep venous thrombosis of the left lower extremity. 2. Hypoechoic focus of left thigh at site of erythema. This could relate to hematoma, localized amilcar a, and/or developing complex fluid collection such as abscess. Correlate clinically, and, as necessar y, imaging follow-up may be obtained. POS: [facility]
[2018-08-24 07:44] VITALS: BMI 29.7
[2018-08-24] MEDS ORDERED: Prevnar 13-Val Conj/PF 0.5 ML SYRINGE IM ONE (08:00)
--- NOTE | 2018-08-24 08:11 | CT ---
PRELIMINARY REPORT/[facility]/EMERGENTY AFTER-HOURS PROCEDURE Addendum created by Stanley Hernadez MD on 08/24/2018 5:41 AM Central Time ([place] & [place]) THIS REPORT CONTAINS FINDINGS THAT MAY BE CRITICAL TO PATIENT CARE. The findings were verbally commun icated via telephone conference with Dr. Bowie at 5:40 AM [employer]CH[employer]IC on 08/24/2018. The findings were ackn owledged and understood. Initial Report created on 08/24/2018 5:07 AM Central Time ([place] & [place]) CT Left Lower Extremity With IV Contrast, Hip EXAM DATE/TIME: 08/24/2018 2:39 AM CLINICAL HISTORY: 83 years old, male; Signs and symptoms; Cellulitis and other: Abcess; Hip; Left; Prior surgery; Surge ry date: 6+ months; Surgery type: 2013 hip replacement; Patient HX: 83y, patient presents with pain i n left proximal lower extremity that has been worsening with redness over last several days. Patient also reports increased swelling to left lower extremity. Hip replacement 2017. Redness, infla mmation on left hip, confusion. TECHNIQUE: CT of the Left lower extremity with intravenous contrast was performed. Exam focused on the hip. COMPARISON: No relevant prior studies available. FINDINGS: Bones/joints: There is streak artifact limiting evaluation of the LEFT hip. There is a large rim enha ncing fluid collection with foci of air within the LEFT hip suggestive of periprosthesis abscess, poo rly visualized due to streak artifact. The hip prosthesis is dislocated superiorly and anterolaterall y. Soft tissues: There is marked soft tissue stranding. IMPRESSION: 1. There is a large rim-enhancing fluid collection with foci of air within the LEFT hip suggestive of periprosthesis abscess, poorly visualized due to streak artifact. Correlate for septic joint 2. The hip prosthesis is dislocated superiorly and anterolaterally. Thank you for allowing us to participate in the care of your patient. Dictated and Authenticated by: Stanley Hernadez MD 08/24/2018 5:07 AM Central Time ([place] & [place]) FINAL REPORT CT LEFT LOWER EXTREMITY WITH CONTRAST: Date: 08/24/18 HISTORY: Cellulitis. COMPARISON: None. FINDINGS/IMPRESSION: Findings and impression are concordant with the preliminary report by Mary Ellen. There is also associated acetabular fracture fragment on the posterior capsule. There is posterior di slocation of the acetabular cup with anterior dislocation of the femoral head component. The acetabul ar cup is posteriorly rotated. Relative to the acetabulum, the femoral head component is externally r otated. POS: [facility]
[2018-08-24] MEDS ORDERED: hydrALAZINE 20 MG/ML VIAL SLOW IVP PRN (08:28)
[2018-08-24] MEDS ORDERED: ALPRAZolam 0.5 MG TAB PO PRN (08:28)
[2018-08-24] MEDS: NS 0.9% w/ 20 MEQ KCL 1,000 ML/1,000 ML BAG IV SCH (08:58)
[2018-08-24] MEDS: Tamsulosin HCl 0.4 MG CAP PO SCH (08:59)
[2018-08-24] MEDS: Gabapentin 300 MG CAP PO SCH ×3 (08:59→20:54)
[2018-08-24] MEDS ORDERED: GABAPENTIN 300 MG PO SCH (09:00)
--- NOTE | 2018-08-24 09:47 | PRG ---
DATE OF SERVICE: 08/24/2018 PRIMARY CARE PHYSICIAN: Dr. Morton. SUBJECTIVE: The patient denies any new complaints at this time. No chest pain, shortness of breath, or palpitations. MEDICATIONS: Current medications were reviewed. Home medications were reviewed as well. REVIEW OF SYSTEMS: The patient denies any nausea, vomiting, diarrhea, or altered mentation. OBJECTIVE: VITAL SIGNS: Temperature 97.8, pulse rate of 73, respirations 20, blood pressure 114/71, and O2 saturation 100% on room air. Intake and output unavailable. GENERAL: An 83-year-old male, in no apparent distress. LUNGS: Clear to auscultation bilaterally. No wheezing, rales, or rhonchi. HEART: S1 and S2 present. Regular rate and rhythm. No rubs or gallops appreciated. Pacemaker noted. ABDOMEN: Soft, nontender. Bowel sounds present. EXTREMITIES: No edema or calf tenderness in the right lower extremity. Left lower extremity edema noted. MUSCULOSKELETAL: No new joint swelling or tenderness except for the left hip. LABORATORY DATA: CBC showed WBC of 16.4, hemoglobin 12.8, hematocrit 38.8, and platelets 654. D-dimer 2.96. Chemistry showed sodium 132, potassium 3.3, chloride 95, bicarb 24, BUN 14, and creatinine 0.98. Lactic acid 1.2. IMAGING DATA: 1. Doppler of left lower extremity was negative for DVT. 2. CT scan of the left lower extremity showed suspected periprosthetic left hip abscess. IMPRESSION: 1. 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 Management per Orthopedic Service. 2. Chronic diastolic heart failure, appears to be compensated. Lasix will be on hold due to n.p.o. status. We will reduce the IV fluids to 50 mL/h. 3. Hypokalemia. The patient has received 30 mEq of potassium chloride. We will recheck the labs in a.m. 4. Hyponatremia. We will recheck labs in a.m. Lasix is currently on hold. Continue gentle IV hydration. 5. Chronic pain syndrome. We will continue gabapentin. 6. Anxiety. We will resume Xanax 0.5 mg at bedtime p.r.n. 7. Benign prostatic hypertrophy. We will continue Flomax. 8. Hypothyroidism. We will continue levothyroxine. 9. Chronic constipation. We will start him on MiraLAX at bedtime. 10. Sick sinus syndrome status post pacemaker. 11. Depression without any suicidal ideation. 12. Hyperlipidemia. 13. Chronic pain syndrome, on fentanyl patch. The patient is currently on morphine as needed. 14. Chronic deconditioning. The patient is currently wheelchair bound. 15. Code status: Full code. Surrogate decision maker, the patient makes his own decision with the help of his family. Plan of care was discussed with the patient and the family in detail, they stated understanding. Job ID: [id number]
--- NOTE | 2018-08-24 11:37 | RAD ---
LEFT HIP 2 VIEWS: Date: 08/24/18 HISTORY: Fracture/dislocation. COMPARISON: CT same date. FINDINGS: There is extensive subcutaneous emphysema along the left hip, indicating gas with soft tissue swellin g indicating abscess. There is a fracture/dislocation of the acetabular cup. There is abnormal rotati on of the femoral stem, which is externally rotated. There is a fracture of the acetabulum due to the acetabular cup being dislocated. IMPRESSION: Likely abscess of the left hip with fracture/dislocation. Distal femoral stem poorly evaluated. Bones are osteopenic. POS: [facility]
[2018-08-24] MEDS: Piperacillin/Tazobactam 3.375 GM in Sodium Chloride 0.9% 100 ML IVPB SCH ×2 (11:51→17:41)
[2018-08-24] MEDS: ENZALUTAMIDE 40 MG PO SCH (13:51)
--- NOTE | 2018-08-24 15:37 | HP ---
CHIEF COMPLAINT: Left hip infection. HISTORY OF PRESENT ILLNESS: Mr. Herring is an 83-year-old male, who presented to the emergency department last night with pain and drainage from his left hip. He has a complex history regarding his left hip. He has had multiple hip arthroplasty surgeries. He had surgery in 2012 and 2014. 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 At one point, he had removal of his implants and PROSTALAC placement. He no longer ambulates. He is essentially bedbound. He reports that his leg is chronically in a shortened and rotated position. He has had increased drainage and erythema and was taken to the emergency department for these. He has been treated with long-term antibiotics in the past. PAST MEDICAL HISTORY: Sick sinus syndrome, history of thyroid cancer, prostate cancer, sciatica, hyperlipidemia, hypothyroidism, osteoarthritis, status post multiple joint arthroplasties as per HPI. PAST SURGICAL HISTORY: Thyroidectomy, bilateral total hip arthroplasties with multiple revision surgeries related to infection and dislocation on the left. Inguinal hernia repair, appendectomy, and previous eye surgery. PSYCHIATRIC HISTORY: Depression. ALLERGIES: NO KNOWN DRUG ALLERGIES. SOCIAL HISTORY: The patient lives in a nursing-type facility. He sits in a wheelchair and is otherwise bedbound. He denies active smoking, tobacco, or drug use. REVIEW OF SYSTEMS: Positive for left hip pain, otherwise negative 10-point review of systems. IMAGING STUDIES: CT scan is currently available, which shows a chronically dislocated left hip arthroplasty. There is large soft tissue swelling and abscess formation. X-rays are not yet done. PHYSICAL EXAMINATION: VITAL SIGNS: Temperature is 98.7, pulse is 69, respiratory rate 18, oxygen saturation 92, and blood pressure is 123/80. GENERAL: The patient is lying supine, alert, is able to answer questions, and in no apparent distress. HEENT: Normocephalic, atraumatic. RESPIRATORY: Breathing comfortably. ABDOMEN: Soft, nontender, and nondistended. MUSCULOSKELETAL: The patient's left leg has erythema and drainage as well as superficial blistering of his skin at the previous scar. There is expressible drainage. He is tender to palpation. The skin has increased warmth. He is lying in an externally rotated and shortened position. He is able to flex and extend the foot. 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 PLAN: At this point, the patient has been started on intravenous antibiotics. We will continue vancomycin and Zosyn. He will have pain control. He will be able to mobilize to a chair. I will discuss this case with Dr. Fuller, who has been his treating surgeon in the past. I would recommend that he have removal of his hip arthroplasty implants with repeat irrigation and debridement at this point to hopefully prevent further recurrence of infection. He will need another course of long-term antibiotics. He will be n.p.o. midnight in case he goes to surgery tomorrow. Job ID: [id number]
[2018-08-24] MEDS ORDERED: Iopamidol 370 76% 100 ML VIAL ONE (17:11)
[2018-08-24] MEDS: Polyethylene Glycol 3350 17 GM Packet PO SCH (20:54)
[2018-08-24] MEDS: Vancomycin HCl 1 GM in Premix Bag 1 BAG IVPB SCH (20:55)
[2018-08-25] MEDS: Piperacillin/Tazobactam 3.375 GM in Sodium Chloride 0.9% 100 ML IVPB SCH ×4 (00:36→17:58)
[2018-08-25] MEDS: Levothyroxine Sodium 88 MCG TAB PO SCH (05:43)
[2018-08-25] MEDS ORDERED: Levothyroxine Sodium 100 MCG TAB PO SCH (06:00)
[2018-08-25] MEDS: Morphine 4 MG/ML VIAL SLOW IVP PRN (06:24)
[2018-08-25 08:26] LABS: #Eosinphils 0.2 thou/uL (0.0-0.7); #Lymphocytes 1.2 thou/uL (1.20-3.40); #Monocytes 1.3 thou/uL (0.11-0.59); %Basophils 0.2 % (0.0-1.0); %Eosinophils 1.6 % (0.0-10.0); %Lymphocytes 8.7 % (21.0-51.0); %Monocytes 9.3 % (0.0-10.0); %Neutrophils 80.3 % (42.0-75.0); Hemoglobin 10.2 g/dL (14.0-18.0); Mean Corpuscular HGB CONC 31.9 g/dL (32.0-36.0); Mean Corpuscular Hemoglobin 26.4 pg (27.0-31.0); Mean Corpuscular Volume 82.5 fL (78.0-98.0); Mean Platelet Volume 5.6 fL (7.4-10.4); Platelet Count 632 thou/uL (130-400); RBC Distribution Width 12.8 % (11.5-14.5); Red Blood Cell (RBC) Count 3.88 mill/uL (4.70-6.10); White Blood Cell (WBC) Count 13.7 thou/uL (4.8-10.8)
[2018-08-25 08:40] LABS: INR-International Normal Ratio 1.3; Prothrombin Time 16.6 SEC (12.0-14.7); Vancomycin, Trough 16.4 ug/mL
[2018-08-25 08:42] LABS: Anion Gap 11 mmol/L (10-20); BUN (Urea Nitrogen) 10 mg/dL (8.4-25.7); Calc. Creatinine Clearance 96 mL/min (70-130); Calcium 8.5 mg/dL (7.8-10.44); Carbon Dioxide 24 mmol/L (23-31); Chloride 103 mmol/L (98-107); Estimated GFR-MDRD Greater than 90; Glucose 110 mg/dL (83-110); Magnesium 1.8 mg/dL (1.6-2.6); Potassium 3.2 mmol/L (3.5-5.1); Sodium 135 mmol/L (136-145)
[2018-08-25] MEDS: Vancomycin HCl 1 GM in Premix Bag 1 BAG IVPB SCH ×2 (08:43→20:14)
[2018-08-25] MEDS: Gabapentin 300 MG CAP PO SCH ×3 (08:43→20:14)
[2018-08-25] MEDS: Tamsulosin HCl 0.4 MG CAP PO SCH (08:44)
[2018-08-25] MEDS ORDERED: traMADol HCl 50 MG TAB PO PRN (11:02)
[2018-08-25] MEDS: HYDROcodone/Acetaminophen 10/325 mg Tablet PO PRN ×3 (11:28→20:14)
--- NOTE | 2018-08-25 14:09 | PDOC.PN ---
- Subjective Encounter Start Date: 08/25/18 Encounter Start Time: 08:00 Patient seen and examined for med mngt. No new complaints. No overnight events - Objective MAR Reviewed: Yes Vital Signs & Weight: Vital Signs (12 hours) Temp Pulse Resp BP Pulse Ox 08/25/18 12:00 97.5 F L 83 18 125/68 96 08/25/18 09:31 93 L 08/25/18 07:27 98.9 F 72 18 120/70 93 L 08/25/18 04:00 98.6 F 74 16 112/68 95 Weight Weight 207 lb 2 oz I&O: 08/24/18 08/25/18 08/26/18 06:59 06:59 06:59 Intake Total 1200 1240 Output Total 200 Balance 1000 1240 Result Diagrams: 08/25/18 07:57 08/25/18 07:57 Phys Exam - Physical Examination Constitutional: NAD Respiratory: no wheezing, no rhonchi Cardiovascular: RRR, no rub Gastrointestinal: soft, non-tender, positive bowel sounds Musculoskeletal: no edema (RLE) Neurological: moves all 4 limbs Dx/Plan (1) Chronic pain syndrome Code(s): G89.4 - CHRONIC PAIN SYNDROME Status: Chronic (2) Chronic diastolic heart failure Code(s): I50.32 - CHRONIC DIASTOLIC (CONGESTIVE) HEART FAILURE Status: Chronic Comment: ACC stage C - compensated (3) Hyponatremia Code(s): E87.1 - HYPO-OSMOLALITY AND HYPONATREMIA Status: Acute (4) Hypokalemia Code(s): E87.6 - HYPOKALEMIA Status: Acute (5) Anxiety and depression Code(s): F41.8 - OTHER SPECIFIED ANXIETY DISORDERS Status: Chronic (6) Hypothyroidism Code(s): E03.9 - HYPOTHYROIDISM, UNSPECIFIED Status: Chronic - Plan DVT proph w/SCDs * Cont current meds as below * Replace Potassium * Cont current IVF * Lasix on hold * AM labs Review of Systems - Review of Systems Respiratory: negative: Cough, Dry, Shortness of Breath, Hemoptysis, SOB with Excertion, Pleuritic Pain, Sputum, Wheezing Cardiovascular: negative: chest pain, palpitations, orthopnea, paroxysmal nocturnal dyspnea, edema, light headedness, other - Medications/Allergies Allergies/Adverse Reactions: Allergies Allergy/AdvReac Type Severity Reaction Status Date / Time No Known Allergies Allergy Verified 04/12/17 10:53 Medications: Current Medications Hydrocodone Bitart/Acetaminophen ([place] 10/325) 1 tab PO Q4H PRN PRN Reason: Pain Last Admin: 08/25/18 11:28 Dose: 1 tab Alprazolam (Xanax) 0.5 mg PO HS PRN PRN Reason: Anxiety/Insomnia Gabapentin (Neurontin) 300 mg PO TID [facility] Last Admin: 08/25/18 08:43 Dose: 300 mg Hydralazine HCl (Apresoline) 10 mg SLOW IVP Q4H PRN PRN Reason: SBP Greater Than 180 Potassium Chloride/Sodium Chloride (Ns 0.9% W/ 20 Meq Kcl) 1,000 ml in 1,000 mls @ 50 mls/hr IV .Q20H [facility] Last Admin: 08/24/18 08:58 Dose: 1,000 mls Piperacillin Sod/Tazobactam (Sod 3.375 gm/ Sodium Chloride) 100 mls @ 200 mls/ hr IVPB Q6HR [facility] Stop: 08/30/18 12:01 Last Admin: 08/25/18 11:28 Dose: 100 mls Vancomycin HCl 1 gm/ Device 200 mls @ 200 mls/hr IVPB Q12HR [facility] Stop: 08/30/18 21:01 Last Admin: 08/25/18 08:43 Dose: 200 mls Levothyroxine Sodium (Synthroid) 88 mcg PO 0600 [facility] Last Admin: 08/25/18 05:43 Dose: 88 mcg Morphine Sulfate (Morphine) 2 mg SLOW IVP Q4H PRN PRN Reason: Pain Last Admin: 08/25/18 06:24 Dose: 2 mg Enzalutamide Patient 's Home Medication 40 Mg Tab 0 each PO 1400 [facility] Last Admin: 08/24/18 13:51 Dose: 1 each Polyethylene Glycol (Miralax) 17 gm PO HS [facility] Last Admin: 08/24/18 20:54 Dose: 17 gm Potassium Chloride (Klor-Con) 20 meq PO TID-WM [facility] Stop: 08/25/18 17:01 Last Admin: 08/25/18 11:28 Dose: 20 meq Sodium Chloride (Flush - Normal Saline) 10 ml IVF Q12HR [facility] Last Admin: 08/25/18 08:44 Dose: Not Given Sodium Chloride (Flush - Normal Saline) 10 ml IVF PRN PRN PRN Reason: Saline Flush Tamsulosin HCl (Flomax) 0.8 mg PO DAILY [facility] Last Admin: 08/25/18 08:44 Dose: 0.8 mg Tramadol HCl (Ultram) 100 mg PO Q6H PRN PRN Reason: Pain
[2018-08-25] MEDS: ENZALUTAMIDE 40 MG PO SCH (14:24)
[2018-08-25] MEDS: NS 0.9% w/ 20 MEQ KCL 1,000 ML/1,000 ML BAG IV SCH (14:25)
[2018-08-26] MEDS: Polyethylene Glycol 3350 17 GM Packet PO SCH ×2 (00:15→20:01)
[2018-08-26] MEDS: Piperacillin/Tazobactam 3.375 GM in Sodium Chloride 0.9% 100 ML IVPB SCH ×4 (00:17→17:25)
[2018-08-26] MEDS: HYDROcodone/Acetaminophen 10/325 mg Tablet PO PRN ×4 (00:18→22:33)
[2018-08-26] MEDS: Levothyroxine Sodium 88 MCG TAB PO SCH (05:21)
[2018-08-26 06:53] LABS: Hemoglobin 10.3 g/dL (14.0-18.0); Platelet Count 590 thou/uL (130-400)
[2018-08-26] MEDS: NS 0.9% w/ 20 MEQ KCL 1,000 ML/1,000 ML BAG IV SCH ×2 (07:10→19:55)
[2018-08-26 07:16] LABS: Anion Gap 12 mmol/L (10-20); BUN (Urea Nitrogen) 9 mg/dL (8.4-25.7); Calc. Creatinine Clearance 105 mL/min (70-130); Calcium 8.4 mg/dL (7.8-10.44); Carbon Dioxide 23 mmol/L (23-31); Chloride 106 mmol/L (98-107); Estimated GFR-MDRD Greater than 90; Glucose 100 mg/dL (83-110); Potassium 3.3 mmol/L (3.5-5.1); Sodium 138 mmol/L (136-145)
[2018-08-26] MEDS: Vancomycin HCl 1 GM in Premix Bag 1 BAG IVPB SCH ×2 (08:22→20:01)
[2018-08-26] MEDS: Tamsulosin HCl 0.4 MG CAP PO SCH (09:20)
[2018-08-26] MEDS: Gabapentin 300 MG CAP PO SCH ×3 (09:20→20:00)
[2018-08-26] MEDS: Morphine 4 MG/ML VIAL SLOW IVP PRN ×2 (12:24→16:59)
[2018-08-26] MEDS ORDERED: Rocuronium Bromide 10 MG/ML (10ML VIAL) ONE (13:07)
[2018-08-26] MEDS ORDERED: PROPOFOL 200 MG/20 ML VIAL ONE (13:07)
[2018-08-26] MEDS ORDERED: Glycopyrrolate 0.2 MG/ML 5 ML SYRINGE ONE (13:07)
[2018-08-26] MEDS ORDERED: Lidocaine 1% PF 5 ML VIAL ONE (13:07)
[2018-08-26] MEDS ORDERED: Tobramycin Sulfate 1.2 GM VIAL ONE (13:59)
[2018-08-26] MEDS ORDERED: Fentanyl 100 MCG/2 ML VIAL ONE (14:06)
[2018-08-26] MEDS ORDERED: Phenylephrine HCL 10 MG/ML VIAL ONE (14:10)
[2018-08-26] MEDS ORDERED: Ondansetron HCl/PF 4 MG/2 ML Vial IVP PRN (15:31)
[2018-08-26] MEDS ORDERED: Promethazine HCl 25 MG/ML VIAL IM PRN (15:31)
[2018-08-26] MEDS ORDERED: Promethazine HCl 25 MG/ML VIAL SLOW IVP PRN (15:31)
[2018-08-26] MEDS: ENZALUTAMIDE 40 MG PO SCH (16:59)
--- NOTE | 2018-08-26 16:59 | RAD ---
LFET FEMUR 1 VIEW: FINDINGS: A single AP view taken in OR during intraoperative fixation. The single view reveals an intramedulla ry annmarie transfixing a mid shaft femur fracture. Fragments show mild angulation on the single projecti on. POS: [facility]
[2018-08-26] MEDS ORDERED: Ondansetron PF 4 MG/2 ML Vial SLOW IVP PRN (17:19)
--- NOTE | 2018-08-26 22:21 | PDOC.PN ---
- Subjective Encounter Start Date: 08/26/18 Encounter Start Time: 18:30 Patient seen and examined for medical mngt. Doing well. Pain controlled. Some nausea post op. No overnight events - Objective MAR Reviewed: Yes Vital Signs & Weight: Vital Signs (12 hours) Temp Pulse Resp BP Pulse Ox 08/26/18 19:58 97.6 F 77 18 109/68 95 08/26/18 16:45 98.3 F 92 18 118/74 98 08/26/18 12:00 97.9 F 69 16 142/75 H 95 Weight Weight 207 lb 2 oz I&O: 08/25/18 08/26/18 08/27/18 06:59 06:59 06:59 Intake Total 1200 3040 Output Total 200 400 Balance 1000 2640 Result Diagrams: 08/26/18 06:33 08/26/18 06:33 Phys Exam - Physical Examination Constitutional: NAD Respiratory: no wheezing, no rhonchi Cardiovascular: RRR, no rub Gastrointestinal: soft, non-tender, positive bowel sounds Dx/Plan (1) Chronic pain syndrome Code(s): G89.4 - CHRONIC PAIN SYNDROME Status: Chronic (2) Chronic diastolic heart failure Code(s): I50.32 - CHRONIC DIASTOLIC (CONGESTIVE) HEART FAILURE Status: Chronic Comment: ACC stage C - compensated (3) Hyponatremia Code(s): E87.1 - HYPO-OSMOLALITY AND HYPONATREMIA Status: Acute (4) Hypokalemia Code(s): E87.6 - HYPOKALEMIA Status: Acute (5) Anxiety and depression Code(s): F41.8 - OTHER SPECIFIED ANXIETY DISORDERS Status: Chronic (6) Hypothyroidism Code(s): E03.9 - HYPOTHYROIDISM, UNSPECIFIED Status: Chronic - Plan cont current plan of care, plan discussed w/ family, continue antibiotics, DVT proph w/SCDs Replace Potassium -: AM labs -: Cont gentle hydration due to poor appetite Review of Systems - Review of Systems Respiratory: negative: Cough, Dry, Shortness of Breath, Hemoptysis, SOB with Excertion, Pleuritic Pain, Sputum, Wheezing Cardiovascular: negative: chest pain, palpitations, orthopnea, paroxysmal nocturnal dyspnea, edema, light headedness, other - Medications/Allergies Allergies/Adverse Reactions: Allergies Allergy/AdvReac Type Severity Reaction Status Date / Time No Known Allergies Allergy Verified 04/12/17 10:53 Medications: Current Medications Hydrocodone Bitart/Acetaminophen ([place] 10/325) 1 tab PO Q4H PRN PRN Reason: Pain Last Admin: 08/26/18 18:32 Dose: 1 tab Alprazolam (Xanax) 0.5 mg PO HS PRN PRN Reason: Anxiety/Insomnia Fentanyl (Duragesic) 25 mcg TD Q3D [facility] Last Admin: 08/25/18 20:12 Dose: 25 mcg Gabapentin (Neurontin) 300 mg PO TID [facility] Last Admin: 08/26/18 20:00 Dose: 300 mg Hydralazine HCl (Apresoline) 10 mg SLOW IVP Q4H PRN PRN Reason: SBP Greater Than 180 Potassium Chloride/Sodium Chloride (Ns 0.9% W/ 20 Meq Kcl) 1,000 ml in 1,000 mls @ 50 mls/hr IV .Q20H [facility] Last Admin: 08/26/18 19:55 Dose: Not Given Piperacillin Sod/Tazobactam (Sod 3.375 gm/ Sodium Chloride) 100 mls @ 200 mls/ hr IVPB Q6HR [facility] Stop: 08/30/18 12:01 Last Admin: 08/26/18 17:25 Dose: 100 mls Vancomycin HCl 1 gm/ Device 200 mls @ 200 mls/hr IVPB Q12HR [facility] Stop: 08/30/18 21:01 Last Admin: 08/26/18 20:01 Dose: 200 mls Levothyroxine Sodium (Synthroid) 88 mcg PO 0600 [facility] Last Admin: 08/26/18 05:21 Dose: 88 mcg Morphine Sulfate (Morphine) 2 mg SLOW IVP Q4H PRN PRN Reason: Pain Last Admin: 08/26/18 16:59 Dose: 2 mg Ondansetron HCl (Zofran) 4 mg SLOW IVP Q6H PRN PRN Reason: Nausea Last Admin: 08/26/18 17:25 Dose: 4 mg Enzalutamide Patient 's Home Medication 40 Mg Tab 0 each PO 1400 [facility] Last Admin: 08/26/18 16:59 Dose: 1 each Polyethylene Glycol (Miralax) 17 gm PO HS [facility] Last Admin: 08/26/18 20:01 Dose: Not Given Potassium Chloride (Klor-Con) 20 meq PO TID[facility] Stop: 08/27/18 08:01 Last Admin: 08/26/18 17:16 Dose: Not Given Sodium Chloride (Flush - Normal Saline) 10 ml IVF Q12HR [facility] Last Admin: 08/26/18 20:01 Dose: Not Given Sodium Chloride (Flush - Normal Saline) 10 ml IVF PRN PRN PRN Reason: Saline Flush Tamsulosin HCl (Flomax) 0.8 mg PO DAILY [facility] Last Admin: 08/26/18 09:20 Dose: Not Given Tramadol HCl (Ultram) 100 mg PO Q6H PRN PRN Reason: Pain
[2018-08-27] MEDS: Morphine 4 MG/ML VIAL SLOW IVP PRN ×2 (00:29→06:14)
[2018-08-27] MEDS: Piperacillin/Tazobactam 3.375 GM in Sodium Chloride 0.9% 100 ML IVPB SCH ×4 (00:30→17:32)
[2018-08-27] MEDS: HYDROcodone/Acetaminophen 10/325 mg Tablet PO PRN ×2 (03:33→08:27)
[2018-08-27] MEDS: Levothyroxine Sodium 88 MCG TAB PO SCH (06:02)
[2018-08-27] MEDS: NS 0.9% w/ 20 MEQ KCL 1,000 ML/1,000 ML BAG IV SCH ×3 (06:02→22:10)
[2018-08-27 08:03] LABS: #Eosinphils 0.4 thou/uL (0.0-0.7); #Lymphocytes 1.6 thou/uL (1.20-3.40); #Monocytes 1.1 thou/uL (0.11-0.59); #Neutrophils 5.3 thou/uL (1.40-6.50); %Basophils 0.5 % (0.0-1.0); %Eosinophils 4.3 % (0.0-10.0); %Lymphocytes 19.2 % (21.0-51.0); %Monocytes 12.9 % (0.0-10.0); %Neutrophils 63.1 % (42.0-75.0); Hemoglobin 8.8 g/dL (14.0-18.0); Mean Corpuscular HGB CONC 32.4 g/dL (32.0-36.0); Mean Corpuscular Hemoglobin 26.8 pg (27.0-31.0); Mean Corpuscular Volume 82.8 fL (78.0-98.0); Mean Platelet Volume 5.6 fL (7.4-10.4); Platelet Count 648 thou/uL (130-400); RBC Distribution Width 12.9 % (11.5-14.5); Red Blood Cell (RBC) Count 3.29 mill/uL (4.70-6.10); White Blood Cell (WBC) Count 8.4 thou/uL (4.8-10.8)
[2018-08-27 08:21] LABS: Anion Gap 12 mmol/L (10-20); BUN (Urea Nitrogen) 8 mg/dL (8.4-25.7); Calc. Creatinine Clearance 97 mL/min (70-130); Carbon Dioxide 21 mmol/L (23-31); Chloride 105 mmol/L (98-107); Estimated GFR-MDRD Greater than 90; Glucose 100 mg/dL (83-110); Potassium 3.3 mmol/L (3.5-5.1); Sodium 135 mmol/L (136-145)
[2018-08-27] MEDS: Gabapentin 300 MG CAP PO SCH ×3 (08:26→22:09)
[2018-08-27] MEDS: Tamsulosin HCl 0.4 MG CAP PO SCH (08:26)
[2018-08-27] MEDS: Vancomycin HCl 1 GM in Premix Bag 1 BAG IVPB SCH ×2 (08:28→22:09)
[2018-08-27] MEDS: fentaNYL Citrate/PF 2,000 MCG in Sodium Chloride 0.9% 60 ML IV PRN (10:56)
--- NOTE | 2018-08-27 11:28 | OP ---
DATE OF PROCEDURE: 08/26/2018 PREOPERATIVE DIAGNOSIS: Infected and dislocated left hip. POSTOPERATIVE DIAGNOSIS: Infected and dislocated left hip. FORM WORKER: Miguel Angel. ESTIMATED BLOOD LOSS: About 500. SPECIMEN: Cultures. COMPLICATIONS: Iatrogenic femur fracture during the prep. PROCEDURE IN DETAIL: the patient was taken to the operative suite where general anesthesia was induced. He was placed in the right lateral decubitus position on the operating table. I personally supervised this. I then attempted to lift his leg which was abducted severely with a contracture. I abducted his leg, but I attempted to rotate the leg for the prep and felt a crack. I took an x-ray in the operating room, which showed a spiral fracture around these caval on the hip prosthesis through very severely osteoporotic bone. I went ahead with the prep. I opened up the old incision, I excised the sinus tract. Copious pulse lavage irrigation was performed. Pus was removed. I extracted the acetabulum without difficulty. I had to perform an osteotomy of the femur to extract the stem. This osteotomy was not much different from the iatrogenic fracture and I just extended it into the fracture site. I cut the cables as visible. We used a large curette to curette the acetabulum out to get down to bleeding bone. Copious irrigation performed again. I created an antibiotic spacer, one for the acetabulum and one for the femur. I used vancomycin and tobramycin for this. Additional irrigation performed. I repaired the subcu with #2 Vicryl and skin with 2-0 Prolene. Sterile dressing was applied with plans to return to the operating room in a few days for repeat I and D, then he will be placed in a knee immobilizer for his femur fracture. Job ID: [id number]
[2018-08-27] MEDS: ENZALUTAMIDE 40 MG PO SCH (15:08)
--- NOTE | 2018-08-27 16:17 | CON ---
DATE OF CONSULTATION: REASON FOR CONSULTATION: Left arthroplasty site infection. HISTORY OF PRESENT ILLNESS: An 83-year-old gentleman known to us from prior visit, who has history of prostate cancer and thyroid cancer and bilateral hip replacements with dislocation. The patient had loosening identified in 06/2017, which was felt to be secondary to chronic left hip implant infection. 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 He was admitted in December with chest pain by the Hospitalist Service and then about 2 or 3 weeks before this admission, the animal humane agent supervisor noticed erythema at the surface of the previous arthroplasty revision site and he was brought in. The impression was chronic dislocation with likely recrudescence of the infection. Dr. Fuller removed the implant and is planning to go back to reassess the site in a few days. The patient is not ambulatory. I am not sure, he is probably going to put a spacer there. During the procedure, inadvertently the patient sustained a femur fracture during the prep. Currently, Mr. Herring is somewhat somnolent, but is arousable. Denies any headaches. No visual symptoms, sore throat, odynophagia, or dysphagia. No abdominal pain. He is urinating in the diaper. The patient is not ambulatory, basically transfers from bed to power wheelchair. 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 ALLERGIES: NONE. SOCIAL HISTORY: He lives in an apartment at [place], and never smoker. CURRENT MEDICATIONS: Xanax, Duragesic, fentanyl, Neurontin, Apresoline, Synthroid, androgen inhibitor, ondansetron, Zosyn vancomycin. PHYSICAL EXAMINATION: VITAL SIGNS: T-max 98.3, blood pressure 120/72, pulse 81, respirations 22, O2 saturation 96%. SKIN: Area of the left hip with protrusion and a little bit of erythema, in the lower aspect there is a yellow area where probably there was some drainage which is purulent in appearance. The patient has some stage II areas of linear ulceration in the left gluteal region, has a peripheral IV access. No Guerra catheter. HEENT: His ocular movements are conjugate. Oral cavity moist. NECK: Supple. LUNGS: Symmetric, clear breath sounds. HEART: S1 and S2. Regular rate. ABDOMEN: Soft, not distended. EXTREMITIES: He has diffuse weakness. Pulses 1+ in dorsalis pedis with trace edema. NEUROLOGIC: He knows his name and could not tell me where he was. He followed commands with quite a bit of limitation. This is most likely because he is under the effect of Duragesic analgesia. LABORATORY DATA: His white cell count has gone down from 16 to 8.4, hemoglobin is 8.8, platelets at 648 with 63% neutrophils. INR 1.3. Sodium 135, creatinine 0.79. Liver profile normal. Albumin 3.0. Vancomycin trough 16.4. Thus far the Gram stain from the hip shows few gram-positive cocci in clusters. ASSESSMENT: Recurring infections, left hip arthroplasty site, last treatment in 2017, now with recrudescence of infection. The patient will have revision of the site on Saturday and probably a spacer placed. I do not know if he is going to be a candidate for that. He also has a fracture that will be managed with a splint. Continue vancomycin, Zosyn for now, eventually transition to definitive regimen for long-term treatment and after that suppressive therapy. The patient may have osteomyelitis associated with it in view of the chronicity of the current process. The setting of treatment probably will be a residential unit unless we can get a home health nurse to go administer the medication on a daily basis or if the animal humane agent supervisor can learn how to administer the medications. Job ID: [id number]
--- NOTE | 2018-08-27 21:35 | PDOC.PN ---
- Subjective Encounter Start Date: 08/27/18 Encounter Start Time: 18:00 Patient seen and examined for med mngt. Started on MANAGER SALES TRAINING due to significant pain. No new complaints. No overnight events - Objective MAR Reviewed: Yes Vital Signs & Weight: Vital Signs (12 hours) Temp Pulse Resp BP Pulse Ox 08/27/18 20:59 97.2 F L 87 20 123/75 93 L 08/27/18 15:01 96.3 F L 89 20 141/78 H 97 08/27/18 11:46 97.1 F L 81 22 H 120/72 96 Weight Weight 207 lb 2 oz I&O: 08/26/18 08/27/18 08/28/18 06:59 06:59 06:59 Intake Total 3040 900 1950 Output Total 400 Balance 2640 900 1950 Result Diagrams: 08/28/18 05:42 08/28/18 05:42 Phys Exam - Physical Examination Constitutional: NAD Respiratory: no wheezing, no rhonchi Cardiovascular: RRR, no rub Gastrointestinal: soft, positive bowel sounds Dx/Plan (1) Chronic diastolic heart failure Code(s): I50.32 - CHRONIC DIASTOLIC (CONGESTIVE) HEART FAILURE Status: Chronic Comment: ACC stage C - compensated (2) Chronic pain syndrome Code(s): G89.4 - CHRONIC PAIN SYNDROME Status: Chronic (3) Hyponatremia Code(s): E87.1 - HYPO-OSMOLALITY AND HYPONATREMIA Status: Acute (4) Hypokalemia Code(s): E87.6 - HYPOKALEMIA Status: Acute (5) Anxiety and depression Code(s): F41.8 - OTHER SPECIFIED ANXIETY DISORDERS Status: Chronic (6) Hypothyroidism Code(s): E03.9 - HYPOTHYROIDISM, UNSPECIFIED Status: Chronic - Plan cont current plan of care, DVT proph w/SCDs Cont current meds as below -: Resume Lasix in AM -: Change IVF to KVO -: AM labs Review of Systems - Review of Systems Respiratory: negative: Cough, Dry, Shortness of Breath, Hemoptysis, SOB with Excertion, Pleuritic Pain, Sputum, Wheezing Cardiovascular: negative: chest pain, palpitations, orthopnea, paroxysmal nocturnal dyspnea, edema, light headedness, other - Medications/Allergies Allergies/Adverse Reactions: Allergies Allergy/AdvReac Type Severity Reaction Status Date / Time No Known Allergies Allergy Verified 04/12/17 10:53 Medications: Current Medications Hydrocodone Bitart/Acetaminophen ([place] 10/325) 1 tab PO Q4H PRN PRN Reason: Pain Last Admin: 08/27/18 08:27 Dose: 1 tab Alprazolam (Xanax) 0.5 mg PO HS PRN PRN Reason: Anxiety/Insomnia Fentanyl (Duragesic) 25 mcg TD Q3D [facility] Last Admin: 08/25/18 20:12 Dose: 25 mcg Gabapentin (Neurontin) 300 mg PO TID [facility] Last Admin: 08/27/18 15:08 Dose: 300 mg Hydralazine HCl (Apresoline) 10 mg SLOW IVP Q4H PRN PRN Reason: SBP Greater Than 180 Piperacillin Sod/Tazobactam (Sod 3.375 gm/ Sodium Chloride) 100 mls @ 200 mls/ hr IVPB Q6HR [facility] Stop: 08/30/18 12:01 Last Admin: 08/27/18 17:32 Dose: 100 mls Vancomycin HCl 1 gm/ Device 200 mls @ 200 mls/hr IVPB Q12HR [facility] Stop: 08/30/18 21:01 Last Admin: 08/27/18 08:28 Dose: 200 mls Fentanyl Citrate 2,000 mcg/ (Sodium Chloride) 100 mls @ 0 mls/hr IV INF PRN PRN Reason: Pain Last Admin: 08/27/18 10:56 Dose: 100 mls Potassium Chloride/Sodium Chloride (Ns 0.9% W/ 20 Meq Kcl) 1,000 ml in 1,000 mls @ 30 mls/hr IV .Q24H [facility] Levothyroxine Sodium (Synthroid) 88 mcg PO 0600 [facility] Last Admin: 08/27/18 06:02 Dose: 88 mcg Morphine Sulfate (Morphine) 2 mg SLOW IVP Q4H PRN PRN Reason: Pain Last Admin: 08/27/18 06:14 Dose: 2 mg Ondansetron HCl (Zofran) 4 mg SLOW IVP Q6H PRN PRN Reason: Nausea Last Admin: 08/26/18 17:25 Dose: 4 mg Enzalutamide Patient 's Home Medication 40 Mg Tab 0 each PO 1400 [facility] Last Admin: 08/27/18 15:08 Dose: Not Given Polyethylene Glycol (Miralax) 17 gm PO HS [facility] Last Admin: 08/26/18 20:01 Dose: Not Given Sodium Chloride (Flush - Normal Saline) 10 ml IVF Q12HR [facility] Last Admin: 08/27/18 12:14 Dose: Not Given Sodium Chloride (Flush - Normal Saline) 10 ml IVF PRN PRN PRN Reason: Saline Flush Tamsulosin HCl (Flomax) 0.8 mg PO DAILY [facility] Last Admin: 08/27/18 08:26 Dose: 0.8 mg Tramadol HCl (Ultram) 100 mg PO Q6H PRN PRN Reason: Pain
[2018-08-27] MEDS: Polyethylene Glycol 3350 17 GM Packet PO SCH (22:09)
[2018-08-28] MEDS: Piperacillin/Tazobactam 3.375 GM in Sodium Chloride 0.9% 100 ML IVPB SCH ×5 (01:07→23:29)
[2018-08-28] MEDS: Levothyroxine Sodium 88 MCG TAB PO SCH (05:47)
[2018-08-28 06:40] LABS: #Basophils 0.1 thou/uL (0.0-0.2); #Eosinphils 0.6 thou/uL (0.0-0.7); #Monocytes 1.4 thou/uL (0.11-0.59); #Neutrophils 6.6 thou/uL (1.40-6.50); %Basophils 0.5 % (0.0-1.0); %Eosinophils 5.9 % (0.0-10.0); %Lymphocytes 18.7 % (21.0-51.0); %Monocytes 12.9 % (0.0-10.0); %Neutrophils 61.9 % (42.0-75.0); Hemoglobin 8.6 g/dL (14.0-18.0); Mean Corpuscular HGB CONC 30.7 g/dL (32.0-36.0); Mean Corpuscular Hemoglobin 25.8 pg (27.0-31.0); Mean Corpuscular Volume 84.1 fL (78.0-98.0); Mean Platelet Volume 5.9 fL (7.4-10.4); Platelet Count 695 thou/uL (130-400); RBC Distribution Width 13.2 % (11.5-14.5); Red Blood Cell (RBC) Count 3.35 mill/uL (4.70-6.10); White Blood Cell (WBC) Count 10.6 thou/uL (4.8-10.8)
[2018-08-28 06:57] LABS: Anion Gap 13 mmol/L (10-20); BUN (Urea Nitrogen) 7 mg/dL (8.4-25.7); Calc. Creatinine Clearance 80 mL/min (70-130); Calcium 8.4 mg/dL (7.8-10.44); Carbon Dioxide 22 mmol/L (23-31); Chloride 107 mmol/L (98-107); Estimated GFR-MDRD 75; Glucose 102 mg/dL (83-110); Potassium 3.6 mmol/L (3.5-5.1); Sodium 138 mmol/L (136-145)
[2018-08-28] MEDS: Tamsulosin HCl 0.4 MG CAP PO SCH (09:03)
[2018-08-28] MEDS: Vancomycin HCl 1 GM in Premix Bag 1 BAG IVPB SCH ×2 (09:03→21:03)
[2018-08-28] MEDS: Gabapentin 300 MG CAP PO SCH ×3 (09:03→21:03)
[2018-08-28] MEDS: Furosemide 40 MG TAB PO SCH (09:03)
[2018-08-28] MEDS: ENZALUTAMIDE 40 MG PO SCH (14:50)
[2018-08-28] MEDS: NS 0.9% w/ 20 MEQ KCL 1,000 ML/1,000 ML BAG IV SCH (18:31)
[2018-08-28] MEDS: Polyethylene Glycol 3350 17 GM Packet PO SCH (21:04)
--- NOTE | 2018-08-28 22:52 | PDOC.PN ---
- Subjective Encounter Start Date: 08/28/18 Encounter Start Time: 13:00 Patient seen and examined for medical management. No CP/SOB. No new complaints. No overnight events - Objective MAR Reviewed: Yes Vital Signs & Weight: Vital Signs (12 hours) Temp Pulse Resp BP Pulse Ox 08/28/18 16:35 97.6 F 88 16 119/69 96 08/28/18 12:54 96.1 F L 82 18 122/75 94 L Weight Weight 207 lb 2 oz I&O: 08/27/18 08/28/18 08/29/18 06:59 06:59 06:59 Intake Total 900 2550 1250 Balance 900 2550 1250 Result Diagrams: 08/28/18 05:42 08/28/18 05:42 Phys Exam - Physical Examination Constitutional: NAD Respiratory: no wheezing, no rhonchi Cardiovascular: RRR, no rub Gastrointestinal: soft, non-tender, positive bowel sounds Neurological: moves all 4 limbs Dx/Plan (1) Chronic diastolic heart failure Code(s): I50.32 - CHRONIC DIASTOLIC (CONGESTIVE) HEART FAILURE Status: Chronic Comment: ACC stage C - compensated (2) Chronic pain syndrome Code(s): G89.4 - CHRONIC PAIN SYNDROME Status: Chronic (3) Hyponatremia Code(s): E87.1 - HYPO-OSMOLALITY AND HYPONATREMIA Status: Acute (4) Hypokalemia Code(s): E87.6 - HYPOKALEMIA Status: Acute (5) Anxiety and depression Code(s): F41.8 - OTHER SPECIFIED ANXIETY DISORDERS Status: Chronic (6) Hypothyroidism Code(s): E03.9 - HYPOTHYROIDISM, UNSPECIFIED Status: Chronic - Plan cont current plan of care, DVT proph w/SCDs Cont current meds as below -: Potassium normal Review of Systems - Review of Systems Respiratory: negative: Cough, Dry, Shortness of Breath, Hemoptysis, SOB with Excertion, Pleuritic Pain, Sputum, Wheezing Cardiovascular: negative: chest pain, palpitations, orthopnea, paroxysmal nocturnal dyspnea, edema, light headedness, other Gastrointestinal: negative: Nausea, Vomiting, Abdominal Pain, Diarrhea, Constipation, Melena, Hematochezia, Other - Medications/Allergies Allergies/Adverse Reactions: Allergies Allergy/AdvReac Type Severity Reaction Status Date / Time No Known Allergies Allergy Verified 04/12/17 10:53 Medications: Current Medications Alprazolam (Xanax) 0.5 mg PO HS PRN PRN Reason: Anxiety/Insomnia Fentanyl (Duragesic) 25 mcg TD Q3D [facility] Last Admin: 08/28/18 18:27 Dose: 25 mcg Furosemide (Lasix) 40 mg PO DAILY [facility] Last Admin: 08/28/18 09:03 Dose: 40 mg Gabapentin (Neurontin) 300 mg PO TID [facility] Last Admin: 08/28/18 21:03 Dose: 300 mg Hydralazine HCl (Apresoline) 10 mg SLOW IVP Q4H PRN PRN Reason: SBP Greater Than 180 Piperacillin Sod/Tazobactam (Sod 3.375 gm/ Sodium Chloride) 100 mls @ 200 mls/ hr IVPB Q6HR [facility] Stop: 08/30/18 12:01 Last Admin: 08/28/18 18:24 Dose: 100 mls Vancomycin HCl 1 gm/ Device 200 mls @ 200 mls/hr IVPB Q12HR [facility] Stop: 08/30/18 21:01 Last Admin: 08/28/18 21:03 Dose: 200 mls Fentanyl Citrate 2,000 mcg/ (Sodium Chloride) 100 mls @ 0 mls/hr IV INF PRN PRN Reason: Pain Last Admin: 08/27/18 10:56 Dose: 100 mls Potassium Chloride/Sodium Chloride (Ns 0.9% W/ 20 Meq Kcl) 1,000 ml in 1,000 mls @ 30 mls/hr IV .Q24H [facility] Last Admin: 08/28/18 18:31 Dose: 1,000 mls Levothyroxine Sodium (Synthroid) 88 mcg PO 0600 [facility] Last Admin: 08/28/18 05:47 Dose: 88 mcg Ondansetron HCl (Zofran) 4 mg SLOW IVP Q6H PRN PRN Reason: Nausea Last Admin: 08/26/18 17:25 Dose: 4 mg Enzalutamide Patient 's Home Medication 40 Mg Tab 0 each PO 1400 [facility] Last Admin: 08/28/18 14:50 Dose: 1 each Polyethylene Glycol (Miralax) 17 gm PO HS [facility] Last Admin: 08/28/18 21:04 Dose: Not Given Sodium Chloride (Flush - Normal Saline) 10 ml IVF Q12HR [facility] Last Admin: 08/28/18 21:04 Dose: Not Given Sodium Chloride (Flush - Normal Saline) 10 ml IVF PRN PRN PRN Reason: Saline Flush Tamsulosin HCl (Flomax) 0.8 mg PO DAILY [facility] Last Admin: 08/28/18 09:03 Dose: 0.8 mg
[2018-08-29] MEDS: fentaNYL Citrate/PF 2,000 MCG in Sodium Chloride 0.9% 60 ML IV PRN ×2 (03:38→13:33)
[2018-08-29] MEDS: Levothyroxine Sodium 88 MCG TAB PO SCH (05:12)
[2018-08-29] MEDS: Piperacillin/Tazobactam 3.375 GM in Sodium Chloride 0.9% 100 ML IVPB SCH ×3 (05:12→17:39)
[2018-08-29] MEDS: Gabapentin 300 MG CAP PO SCH ×3 (07:59→19:59)
[2018-08-29] MEDS: Vancomycin HCl 1 GM in Premix Bag 1 BAG IVPB SCH ×2 (08:00→19:59)
[2018-08-29] MEDS ORDERED: Fentanyl 100 MCG/2 ML VIAL ONE (08:26)
[2018-08-29] MEDS ORDERED: Promethazine HCl 25 MG/ML VIAL SLOW IVP PRN (10:11)
[2018-08-29] MEDS ORDERED: Ondansetron HCl/PF 4 MG/2 ML Vial IVP PRN (10:11)
[2018-08-29] MEDS ORDERED: Promethazine HCl 25 MG/ML VIAL IM PRN (10:11)
[2018-08-29] MEDS ORDERED: PHENYLEPHRINE-NS 100 MCG/ML 10 ML SYRINGE ONE (11:06)
[2018-08-29] MEDS ORDERED: ePHEDrine/0.9% NaCl/PF SYRINGE 50 mg/10 ml ONE (11:06)
[2018-08-29] MEDS ORDERED: Rocuronium Bromide 10 MG/ML (10ML VIAL) ONE (11:06)
[2018-08-29] MEDS ORDERED: PROPOFOL 200 MG/20 ML VIAL ONE (11:06)
[2018-08-29] MEDS ORDERED: Glycopyrrolate 0.2 MG/ML 5 ML SYRINGE ONE (11:06)
[2018-08-29] MEDS ORDERED: Lidocaine 1% PF 5 ML VIAL ONE (11:06)
[2018-08-29] MEDS: Tamsulosin HCl 0.4 MG CAP PO SCH (12:44)
[2018-08-29] MEDS: Furosemide 40 MG TAB PO SCH (12:44)
--- NOTE | 2018-08-29 14:16 | OP ---
DATE OF PROCEDURE: 08/29/2018 PREOPERATIVE DIAGNOSIS: Infected left hip. POSTOPERATIVE DIAGNOSIS: Infected left hip. PROCEDURE: Arthrotomy of the left hip for infection. METAL NUMERICAL TOOL PROGRAMMER: Venkat Black PA-C ESTIMATED BLOOD LOSS: Less than 100. SPECIMENS: None. DRAINS: None. COMPLICATION: None. Cultures had already been taken on the previous surgery. DESCRIPTION OF PROCEDURE: The patient was placed in a right lateral decubitus position. Left hip was prepped in normal sterile fashion. I opened up the old incision and dissected it down to hip joint. I removed the antibiotic spacers, which I had previously placed. I performed pulsatile lavage irrigation. I obtained meticulous hemostasis. Skin was closed with Prolene sutures. An incisional VAC will be placed postoperatively. There were no complications. Job ID: [id number]
[2018-08-29] MEDS: ENZALUTAMIDE 40 MG PO SCH (14:29)
[2018-08-29] MEDS: NS 0.9% w/ 20 MEQ KCL 1,000 ML/1,000 ML BAG IV SCH (17:41)
[2018-08-29] MEDS: Polyethylene Glycol 3350 17 GM Packet PO SCH (20:00)
--- NOTE | 2018-08-29 22:56 | PDOC.PN ---
- Subjective Encounter Start Date: 08/29/18 Encounter Start Time: 13:00 Patient seen and examined for medical mngt. No new complaints. No overnight events - Objective MAR Reviewed: Yes Vital Signs & Weight: Vital Signs (12 hours) Temp Pulse Resp BP Pulse Ox 08/29/18 15:25 98.9 F 87 16 102/59 L 94 L Weight Weight 207 lb 2 oz I&O: 08/28/18 08/29/18 08/30/18 06:59 06:59 06:59 Intake Total 2550 1850 860 Balance 2550 1850 860 Result Diagrams: 08/30/18 05:47 08/30/18 05:47 Phys Exam - Physical Examination Constitutional: NAD Respiratory: no wheezing, no rhonchi Cardiovascular: RRR, no rub Gastrointestinal: soft, non-tender, positive bowel sounds Neurological: moves all 4 limbs Dx/Plan (1) Chronic diastolic heart failure Code(s): I50.32 - CHRONIC DIASTOLIC (CONGESTIVE) HEART FAILURE Status: Chronic Comment: ACC stage C - compensated (2) Chronic pain syndrome Code(s): G89.4 - CHRONIC PAIN SYNDROME Status: Chronic (3) Hyponatremia Code(s): E87.1 - HYPO-OSMOLALITY AND HYPONATREMIA Status: Acute (4) Hypokalemia Code(s): E87.6 - HYPOKALEMIA Status: Acute (5) Anxiety and depression Code(s): F41.8 - OTHER SPECIFIED ANXIETY DISORDERS Status: Chronic (6) Hypothyroidism Code(s): E03.9 - HYPOTHYROIDISM, UNSPECIFIED Status: Chronic - Plan cont current plan of care, PT/OT, DVT proph w/SCDs Cont current meds as below -: AM labs -: 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 Review of Systems - Review of Systems Respiratory: negative: Cough, Dry, Shortness of Breath, Hemoptysis, SOB with Excertion, Pleuritic Pain, Sputum, Wheezing Cardiovascular: negative: chest pain, palpitations, orthopnea, paroxysmal nocturnal dyspnea, edema, light headedness, other - Medications/Allergies Allergies/Adverse Reactions: Allergies Allergy/AdvReac Type Severity Reaction Status Date / Time No Known Allergies Allergy Verified 04/12/17 10:53 Medications: Current Medications Alprazolam (Xanax) 0.5 mg PO HS PRN PRN Reason: Anxiety/Insomnia Fentanyl (Duragesic) 25 mcg TD Q3D [facility] Last Admin: 08/28/18 18:27 Dose: 25 mcg Furosemide (Lasix) 40 mg PO DAILY [facility] Last Admin: 08/29/18 12:44 Dose: 40 mg Gabapentin (Neurontin) 300 mg PO TID [facility] Last Admin: 08/29/18 19:59 Dose: 300 mg Hydralazine HCl (Apresoline) 10 mg SLOW IVP Q4H PRN PRN Reason: SBP Greater Than 180 Piperacillin Sod/Tazobactam (Sod 3.375 gm/ Sodium Chloride) 100 mls @ 200 mls/ hr IVPB Q6HR [facility] [place] Stop: 08/30/18 12:01 Last Admin: 08/29/18 17:39 Dose: 100 mls Vancomycin HCl 1 gm/ Device 200 mls @ 200 mls/hr IVPB Q12HR [facility] [place] Stop: 08/30/18 21:01 Last Admin: 08/29/18 19:59 Dose: 200 mls Fentanyl Citrate 2,000 mcg/ (Sodium Chloride) 100 mls @ 0 mls/hr IV INF PRN PRN Reason: Pain Last Admin: 08/29/18 13:33 Dose: 100 mls Potassium Chloride/Sodium Chloride (Ns 0.9% W/ 20 Meq Kcl) 1,000 ml in 1,000 mls @ 30 mls/hr IV .Q24H [facility] Last Admin: 08/29/18 17:41 Dose: Not Given Levothyroxine Sodium (Synthroid) 88 mcg PO 0600 [facility] Last Admin: 08/29/18 05:12 Dose: 88 mcg Ondansetron HCl (Zofran) 4 mg SLOW IVP Q6H PRN PRN Reason: Nausea Last Admin: 08/26/18 17:25 Dose: 4 mg Enzalutamide Patient 's Home Medication 40 Mg Tab 0 each PO 1400 [facility] Last Admin: 08/29/18 14:29 Dose: 1 each Polyethylene Glycol (Miralax) 17 gm PO HS [facility] Last Admin: 08/29/18 20:00 Dose: Not Given Sodium Chloride (Flush - Normal Saline) 10 ml IVF Q12HR [facility] Last Admin: 08/29/18 20:00 Dose: Not Given Sodium Chloride (Flush - Normal Saline) 10 ml IVF PRN PRN PRN Reason: Saline Flush Tamsulosin HCl (Flomax) 0.8 mg PO DAILY [facility] Last Admin: 08/29/18 12:44 Dose: 0.8 mg
[2018-08-30] MEDS: Piperacillin/Tazobactam 3.375 GM in Sodium Chloride 0.9% 100 ML IVPB SCH ×3 (00:43→12:33)
[2018-08-30] MEDS: Levothyroxine Sodium 88 MCG TAB PO SCH (06:16)
[2018-08-30 06:18] LABS: #Basophils 0.1 thou/uL (0.0-0.2); #Eosinphils 0.4 thou/uL (0.0-0.7); #Neutrophils 6.5 thou/uL (1.40-6.50); %Basophils 0.6 % (0.0-1.0); %Eosinophils 3.8 % (0.0-10.0); %Lymphocytes 20.5 % (21.0-51.0); %Neutrophils 65.2 % (42.0-75.0); Hemoglobin 7.7 g/dL (14.0-18.0); Mean Corpuscular HGB CONC 32.3 g/dL (32.0-36.0); Mean Corpuscular Hemoglobin 26.8 pg (27.0-31.0); Mean Corpuscular Volume 82.8 fL (78.0-98.0); Mean Platelet Volume 5.5 fL (7.4-10.4); Platelet Count 658 thou/uL (130-400); RBC Distribution Width 13.8 % (11.5-14.5); Red Blood Cell (RBC) Count 2.87 mill/uL (4.70-6.10)
[2018-08-30 06:33] LABS: Anion Gap 10 mmol/L (10-20); BUN (Urea Nitrogen) 8 mg/dL (8.4-25.7); Calc. Creatinine Clearance 81 mL/min (70-130); Calcium 7.8 mg/dL (7.8-10.44); Carbon Dioxide 24 mmol/L (23-31); Chloride 107 mmol/L (98-107); Estimated GFR-MDRD 76; Glucose 91 mg/dL (83-110); Magnesium 1.6 mg/dL (1.6-2.6); Potassium 3.2 mmol/L (3.5-5.1); Sodium 138 mmol/L (136-145)
[2018-08-30] MEDS: Furosemide 40 MG TAB PO SCH (08:26)
[2018-08-30] MEDS: Tamsulosin HCl 0.4 MG CAP PO SCH (08:26)
[2018-08-30] MEDS: Vancomycin HCl 1 GM in Premix Bag 1 BAG IVPB SCH ×2 (08:26→20:52)
[2018-08-30] MEDS: Gabapentin 300 MG CAP PO SCH ×3 (08:26→20:51)
[2018-08-30] MEDS: Polyethylene Glycol 3350 17 GM Packet PO SCH (09:55)
[2018-08-30] MEDS: NS 0.9% w/ 20 MEQ KCL 1,000 ML/1,000 ML BAG IV SCH (12:37)
--- NOTE | 2018-08-30 13:57 | PDOC.PN ---
- Subjective Encounter Start Date: 08/30/18 Encounter Start Time: 10:30 Patient seen and examined for med mgnt. Pain controlled with PACKING AND WRAPPING SUPERVISOR. No new complaints. No overnight events - Objective MAR Reviewed: Yes Vital Signs & Weight: Vital Signs (12 hours) Temp Pulse Resp BP Pulse Ox 08/30/18 11:35 97 F L 82 12 102/63 96 08/30/18 08:26 96 08/30/18 08:00 98.4 F 77 12 105/64 96 08/30/18 04:00 98.6 F 83 18 100/65 94 L Weight Weight 207 lb 2 oz I&O: 08/29/18 08/30/18 08/31/18 06:59 06:59 06:59 Intake Total 4636 525 4393 Output Total 933 Balance 1850 860 67 Result Diagrams: 08/30/18 05:47 08/30/18 05:47 Phys Exam - Physical Examination Constitutional: NAD Respiratory: no wheezing, no rhonchi Cardiovascular: RRR, no rub Gastrointestinal: soft, non-tender, positive bowel sounds Neurological: moves all 4 limbs Dx/Plan (1) Chronic diastolic heart failure Code(s): I50.32 - CHRONIC DIASTOLIC (CONGESTIVE) HEART FAILURE Status: Chronic Comment: ACC stage C - compensated (2) Chronic pain syndrome Code(s): G89.4 - CHRONIC PAIN SYNDROME Status: Chronic (3) Hyponatremia Code(s): E87.1 - HYPO-OSMOLALITY AND HYPONATREMIA Status: Acute (4) Hypokalemia Code(s): E87.6 - HYPOKALEMIA Status: Acute (5) Anxiety and depression Code(s): F41.8 - OTHER SPECIFIED ANXIETY DISORDERS Status: Chronic (6) Hypothyroidism Code(s): E03.9 - HYPOTHYROIDISM, UNSPECIFIED Status: Chronic - Plan cont current plan of care, PT/OT, incentive spirometry, DVT proph w/SCDs Replace Potassium -: AM labs -: Add Potassium daily -: Cont other meds as below -: Pain control, AM labs Review of Systems - Review of Systems Respiratory: negative: Cough, Dry, Shortness of Breath, Hemoptysis, SOB with Excertion, Pleuritic Pain, Sputum, Wheezing Cardiovascular: negative: chest pain, palpitations, orthopnea, paroxysmal nocturnal dyspnea, edema, light headedness, other - Medications/Allergies Allergies/Adverse Reactions: Allergies Allergy/AdvReac Type Severity Reaction Status Date / Time No Known Allergies Allergy Verified 04/12/17 10:53 Medications: Current Medications Alprazolam (Xanax) 0.5 mg PO HS PRN PRN Reason: Anxiety/Insomnia Fentanyl (Duragesic) 25 mcg TD Q3D [facility] Last Admin: 08/28/18 18:27 Dose: 25 mcg Furosemide (Lasix) 40 mg PO DAILY [facility] Last Admin: 08/30/18 08:26 Dose: 40 mg Gabapentin (Neurontin) 300 mg PO TID [facility] Last Admin: 08/30/18 08:26 Dose: 300 mg Hydralazine HCl (Apresoline) 10 mg SLOW IVP Q4H PRN PRN Reason: SBP Greater Than 180 Vancomycin HCl 1 gm/ Device 200 mls @ 200 mls/hr IVPB Q12HR [facility] Stop: 08/30/18 21:01 Last Admin: 08/30/18 08:26 Dose: 200 mls Fentanyl Citrate 2,000 mcg/ (Sodium Chloride) 100 mls @ 0 mls/hr IV INF PRN PRN Reason: Pain Last Admin: 08/29/18 13:33 Dose: 100 mls Levothyroxine Sodium (Synthroid) 88 mcg PO 0600 [facility] Last Admin: 08/30/18 06:16 Dose: 88 mcg Ondansetron HCl (Zofran) 4 mg SLOW IVP Q6H PRN PRN Reason: Nausea Last Admin: 08/26/18 17:25 Dose: 4 mg Enzalutamide Patient 's Home Medication 40 Mg Tab 0 each PO 1400 [facility] Last Admin: 08/29/18 14:29 Dose: 1 each Polyethylene Glycol (Miralax) 17 gm PO DAILY [facility] Last Admin: 08/30/18 09:55 Dose: 17 gm Potassium Chloride (K-Dur) 20 meq PO QAM[facility] Senna/Docusate Sodium (Senokot S) 1 tab PO BID [facility] Sodium Chloride (Flush - Normal Saline) 10 ml IVF Q12HR [facility] Last Admin: 08/30/18 12:32 Dose: Not Given Sodium Chloride (Flush - Normal Saline) 10 ml IVF PRN PRN PRN Reason: Saline Flush Tamsulosin HCl (Flomax) 0.8 mg PO DAILY [facility] Last Admin: 08/30/18 08:26 Dose: 0.8 mg
[2018-08-30] MEDS ORDERED: Potassium Chloride 20 MEQ TAB PO SCH ×2 (14:00→17:00)
[2018-08-30] MEDS: ENZALUTAMIDE 40 MG PO SCH (14:16)
--- NOTE | 2018-08-30 15:19 | PQF ---
LAN MCCARTHY MALIK MD [id number] [id number] CLINICAL DOCUMENTATION IMPROVEMENT CLARIFICATION FORM: ICD-10 Updated PLEASE DO AN ADDENDUM TO THE PROGRESS NOTE WITH ANY DOCUMENTATION UPDATES OR ADDITIONS AND CARRY THROUGH TO DC SUMMARY. THANK YOU. DATE: 08/30/2017 ATTN: DR. DREW Please exercise your independent, professional judgment in responding to the clarification form. Clinical indicators are provided on the bottom of this form for your review Please check appropriate box(s) to clarify if the following diagnosis has been ruled in or ruled out: Infection/inflammatory reaction due to internal left hip prosthesis [ ] Ruled in diagnosis and treating [ ] Ruled out diagnosis [ ] Cannot rule out diagnosis [ ] Other diagnosis [ x ] Unable to determine In addition, please specify: Present on Admission (POA): [ ] Yes [ ] No [ ] Unable to determine For continuity of documentation, please document condition throughout progress notes and discharge summary. Thank You. CLINICAL INDICATORS - SIGNS / SYMPTOMS / LABS 08/26 OR Note Preop/Postop Diagnoses include: Infected and dislocated left hip WITH IATROGENIC FEMUR FRACTURE during preop. *Spiral fracture around these caval on the hip prosthesis through very osteoporotic bone. *Insertion of antibiotic spacers. 08/27-Consult Note includes: Reason for Consult - Left arthroplasty site infection. 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 RISK FACTORS *Previous left hip arthroplasty *08/27 Consult: Recurring infection, left hip arthroplasty now with the recrudenscence of infection TREATMENTS Ortho surgery consult/management Iatrogenic femur fracture during surgery Insertion of antibiotic spacer and removal of antibiotic spacer IV antibiotics Surgical lavage Placement of wound vac Thank you, Cassidy (This form is maintained as a part of the permanent medical record) 2014 [email or web address]. All Rights Reserved Cassidy Ames RN, CDIS [email or web address] [phone] Please forward to Orthopedic. Thanks [facility]
[2018-08-30] MEDS: cefTRIAXone\\ROCEPHIN 2 GM in Sodium Chloride 0.9% 100 ML IVPB SCH (18:14)
[2018-08-30] MEDS: fentaNYL Citrate/PF 2,000 MCG in Sodium Chloride 0.9% 60 ML IV PRN (19:59)
--- NOTE | 2018-08-30 20:36 | PRG ---
DATE OF SERVICE: 08/30/2018 SUBJECTIVE: Mr. Herring is not very active, but no chest pain, no respiratory symptoms. Minimal pain at the hip site. OBJECTIVE: VITAL SIGNS: Temperature has been normal. Other vital signs are within limits. O2 saturations 97% on room air. SKIN: Exam shows linear incision with stitches in place, a little bit of serosanguineous drainage, but no erythema noted. LUNGS: Clear. HEART: S1 and S2. Regular rate. ABDOMEN: Soft, not distended. : The patient is voiding in the diaper. LABORATORY DATA: White cell count 10,000, hemoglobin 7.7, and platelets 658. Sodium 138 and creatinine 0.95. Microbiology with Jay christensen June 2017 is quite remarkable persistence of the same organism. 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 He had a revision of the site by Dr. Fuller yesterday and the old incision was opened, dissected down to the hip joint, antibiotic spacers removed and then lavage was performed. An incisional VAC placed postoperatively without complications. The patient has Peptostreptococcus, now currently called Jay christensen, which is exceedingly sensitive to beta lactams. We will go ahead and switch him to Rocephin and continue for protracted period of time. Discontinue current antimicrobials. The end date of therapy will be on October 10. After that, we will switch to penicillin VK 500 mg 3 times daily for another month and a half and then transition to suppressive therapy with penicillin VK 250 mg twice daily. Job ID: [id number] [facility]
[2018-08-30] MEDS: Senokot S 8.6-50 MG TAB PO SCH (20:51)
[2018-08-31] MEDS: Levothyroxine Sodium 88 MCG TAB PO SCH (05:47)
[2018-08-31 06:07] LABS: #Basophils 0.1 thou/uL (0.0-0.2); #Eosinphils 0.3 thou/uL (0.0-0.7); #Lymphocytes 1.7 thou/uL (1.20-3.40); #Monocytes 0.9 thou/uL (0.11-0.59); #Neutrophils 5.6 thou/uL (1.40-6.50); %Basophils 0.9 % (0.0-1.0); %Monocytes 10.6 % (0.0-10.0); %Neutrophils 64.5 % (42.0-75.0); Mean Corpuscular HGB CONC 32.7 g/dL (32.0-36.0); Mean Corpuscular Hemoglobin 27.1 pg (27.0-31.0); Mean Corpuscular Volume 82.8 fL (78.0-98.0); Mean Platelet Volume 5.3 fL (7.4-10.4); Platelet Count 704 thou/uL (130-400); RBC Distribution Width 13.9 % (11.5-14.5); Red Blood Cell (RBC) Count 2.95 mill/uL (4.70-6.10); White Blood Cell (WBC) Count 8.6 thou/uL (4.8-10.8)
[2018-08-31 06:29] LABS: Anion Gap 12 mmol/L (10-20); BUN (Urea Nitrogen) 6 mg/dL (8.4-25.7); Calc. Creatinine Clearance 84 mL/min (70-130); Calcium 8.1 mg/dL (7.8-10.44); Carbon Dioxide 23 mmol/L (23-31); Chloride 108 mmol/L (98-107); Estimated GFR-MDRD 79; Glucose 83 mg/dL (83-110); Potassium 3.5 mmol/L (3.5-5.1); Sodium 139 mmol/L (136-145)
[2018-08-31] MEDS: Potassium Chloride 20 MEQ TAB PO SCH (10:09)
[2018-08-31] MEDS: Furosemide 40 MG TAB PO SCH (10:10)
[2018-08-31] MEDS: Senokot S 8.6-50 MG TAB PO SCH ×2 (10:10→20:12)
[2018-08-31] MEDS: Gabapentin 300 MG CAP PO SCH ×3 (10:10→20:12)
[2018-08-31] MEDS: Tamsulosin HCl 0.4 MG CAP PO SCH (10:10)
[2018-08-31] MEDS: Polyethylene Glycol 3350 17 GM Packet PO SCH (10:11)
[2018-08-31] MEDS: ENZALUTAMIDE 40 MG PO SCH (14:00)
--- NOTE | 2018-08-31 15:17 | PRG ---
DATE OF SERVICE: 08/31/2018 SUBJECTIVE: Mr. Herring is better, more alert. Denies any pain. He had a second washout the day before yesterday. No respiratory symptoms or abdominal pain. He has voiding in the diaper. OBJECTIVE: VITAL SIGNS: Essentially normal. O2 saturations are around 94% on room air. GENERAL: Appears in no distress. Chronically ill appearing. HEENT: Ocular movements conjugate. Sclerae are white. Pale conjunctivae. LUNGS: Clear. HEART: S1 and S2, regular rate. ABDOMEN: Soft, not distended. Left hip negative pressure dressing. LABORATORY DATA: White cell count 8.6, hemoglobin 8.0, platelets 704. Sodium 139, creatinine 0.92. Microbiology with Finegoldia magna, which is the same organism he had previously identified. ASSESSMENT AND DISCUSSION: Recurrent infections, left hip arthroplasty associated with Finegoldia magna with removal of the hardware. I do not think he is going to be a candidate for revision, probably have to remain without a joint and the treatment will continue with Rocephin for 2 days and then transition to oral Pen-Vee K, the dose as described previously. After that, we will have to be on suppression indefinitely. Job ID: [id number]
[2018-08-31] MEDS: cefTRIAXone\\ROCEPHIN 2 GM in Sodium Chloride 0.9% 100 ML IVPB SCH (18:09)
[2018-09-01] MEDS: Levothyroxine Sodium 88 MCG TAB PO SCH (05:48)
[2018-09-01 07:55] LABS: #Eosinphils 0.3 thou/uL (0.0-0.7); #Lymphocytes 1.9 thou/uL (1.20-3.40); #Monocytes 0.9 thou/uL (0.11-0.59); #Neutrophils 4.7 thou/uL (1.40-6.50); %Basophils 0.3 % (0.0-1.0); %Eosinophils 3.4 % (0.0-10.0); %Lymphocytes 24.4 % (21.0-51.0); %Monocytes 11.1 % (0.0-10.0); %Neutrophils 60.9 % (42.0-75.0); Hemoglobin 8.4 g/dL (14.0-18.0); Mean Corpuscular Hemoglobin 26.4 pg (27.0-31.0); Mean Corpuscular Volume 82.6 fL (78.0-98.0); Mean Platelet Volume 5.4 fL (7.4-10.4); Platelet Count 684 thou/uL (130-400); RBC Distribution Width 13.8 % (11.5-14.5); Red Blood Cell (RBC) Count 3.17 mill/uL (4.70-6.10); White Blood Cell (WBC) Count 7.7 thou/uL (4.8-10.8)
[2018-09-01] MEDS: Potassium Chloride 20 MEQ TAB PO SCH (09:13)
[2018-09-01] MEDS: Gabapentin 300 MG CAP PO SCH ×3 (09:13→20:02)
[2018-09-01] MEDS: Tamsulosin HCl 0.4 MG CAP PO SCH (09:14)
[2018-09-01] MEDS: Furosemide 40 MG TAB PO SCH (09:14)
[2018-09-01] MEDS: Polyethylene Glycol 3350 17 GM Packet PO SCH (09:15)
[2018-09-01] MEDS: Senokot S 8.6-50 MG TAB PO SCH ×2 (09:16→20:02)
[2018-09-01] MEDS: fentaNYL Citrate/PF 2,000 MCG in Sodium Chloride 0.9% 60 ML IV PRN (11:59)
--- NOTE | 2018-09-01 13:27 | SPC ---
SONOGRAPHIC GUIDED RIGHT UPPER EXTREMITY PICC: History: Hip infection. Need for snf antibiotics. FINDINGS: After explaining the procedure and answering all questions, the right upper extremity was prepped and draped in the usual sterile fashion. Sterile technique, buffered local anesthesia, sonographic billie nce, and a 22 gauge needle were used to carefully access the right brachial vein. Standard technique was then used to place the tip of a 5 Marshallese single lumen PICC so that the tip lies at the level of t he superior vena cava. Catheter was flushed and secured externally. Patient tolerated the procedure w ell and was returned in unchanged condition. Fluoro time: 0 seconds. IMPRESSION: Right upper extremity PICC is ready for use. POS: [facility]
[2018-09-01] MEDS: ENZALUTAMIDE 40 MG PO SCH (14:31)
--- NOTE | 2018-09-01 15:59 | PDOC.PN ---
- Subjective Encounter Start Date: 09/01/18 Encounter Start Time: 15:00 Subjective: f/u for L septic hip with infected hardware s/p hardware removal on current -: Rocephin IV daily. s/p RUE PICC line placement today. - Objective MAR Reviewed: Yes Vital Signs & Weight: Vital Signs (12 hours) Temp Pulse Resp BP Pulse Ox 09/01/18 15:22 98.4 F 88 22 H 111/68 93 L 09/01/18 13:50 98.8 F 90 20 128/75 96 09/01/18 08:00 94 L 09/01/18 07:33 98 F 83 20 125/73 94 L 09/01/18 04:00 97.4 F L 71 16 116/74 96 Weight Weight 207 lb 2 oz I&O: 08/31/18 09/01/18 09/02/18 06:59 06:59 06:59 Intake Total 2810 1920 Output Total 933 Balance 1877 1920 Result Diagrams: 09/01/18 07:02 08/31/18 05:44 Additional Labs: Microbiology 08/26/18 14:57 Hip - Left Bacterial Culture - Final 08/26/18 14:57 Hip - Left Anaerobic Culture - Final Finegoldia magna Phys Exam - Physical Examination Constitutional: NAD alert, responsive HEENT: PERRLA, sclera anicteric, oral pharynx no lesions Neck: no nodes, no JVD, supple, full ROM Respiratory: no wheezing, no rales, no rhonchi, clear to auscultation bilateral S1, S2 Cardiovascular: RRR, no significant murmur, no rub, gallop Gastrointestinal: soft, non-tender, no distention, positive bowel sounds L hip/thigh edema with wound vac in place Musculoskeletal: pulses present, edema present Neurological: moves all 4 limbs Psychiatric: A&O x 3 Skin: normal turgor, cap refill <2 seconds Dx/Plan (1) Septic arthritis of hip Code(s): M00.9 - PYOGENIC ARTHRITIS, UNSPECIFIED Status: Acute Qualifiers: Laterality: left Comment: Continue Rocephin IV for 6 weeks, plan for indefinite po Pen-VeeK after completion of IV Rocephin, pain control, wound vac (2) Hypokalemia Code(s): E87.6 - HYPOKALEMIA Status: Acute Comment: Improved, continue KCL supplementation (3) Hyponatremia Code(s): E87.1 - HYPO-OSMOLALITY AND HYPONATREMIA Status: Acute Comment: Resolved, serial monitoring (4) Hypothyroidism Code(s): E03.9 - HYPOTHYROIDISM, UNSPECIFIED Status: Chronic Comment: Continue Levothyroxine 88mcg daily (5) Physical deconditioning Code(s): R53.81 - OTHER MALAISE Status: Chronic Comment: PT for ROM exercises, SNF options - Plan continue antibiotics, PT/OT, social economist, DVT proph w/SCDs Stable overall -: Continue Rocephin 2gm IV daily x 6 weeks -: Pain control as clinically indicated, currently on PRESS OPERATOR MEAT with Fentanyl -: CM for SNF options -: Continue Lasix 40mg daily * .
[2018-09-01] MEDS: cefTRIAXone\\ROCEPHIN 2 GM in Sodium Chloride 0.9% 100 ML IVPB SCH (18:07)
[2018-09-02] MEDS: Levothyroxine Sodium 88 MCG TAB PO SCH (05:19)
[2018-09-02] MEDS: Gabapentin 300 MG CAP PO SCH ×2 (09:48→13:42)
[2018-09-02] MEDS: Polyethylene Glycol 3350 17 GM Packet PO SCH (09:48)
[2018-09-02] MEDS: Furosemide 40 MG TAB PO SCH (09:48)
[2018-09-02] MEDS: Potassium Chloride 20 MEQ TAB PO SCH (09:48)
[2018-09-02] MEDS: Tamsulosin HCl 0.4 MG CAP PO SCH (09:49)
[2018-09-02] MEDS: Senokot S 8.6-50 MG TAB PO SCH (09:49)
[2018-09-02 12:23] VITALS: BP 103/58; TEMP 98.8
[2018-09-02] MEDS: ENZALUTAMIDE 40 MG PO SCH (13:43)
[2018-09-02] MEDS ORDERED: Aspirin 81 mg Enteric Coated Tablet PO SCH (21:00)
--- NOTE | 2018-09-03 05:59 | DIS ---
DATE OF ADMISSION: 08/24/2018 DATE OF DISCHARGE: 09/02/2018 DISCHARGE DIAGNOSES: 1. 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 2. Status post arthrotomy of the left hip with irrigation, 08/29/2018. 3. Hypokalemia, resolving. 4. Hyponatremia, resolved. 5. Hypothyroidism, stable. 6. Physical deconditioning. CONSULTATIONS: 1. [facility] for medical management. 2. Dr. Abdullahi Levin with Infectious Disease Service. PERTINENT LAB AND X-RAY FINDINGS: Sodium ranged between 132 to 139, potassium ranged between 3.2 to 3.6, magnesium level ranged between 1.6 to 1.8. CBC showed a hemoglobin ranging between 7.7 to 12.8. Blood culture x1 dated 08/24/2018 negative x2. Urine culture dated 08/24/2018 showed less than 5000 colonies of presumptive E coli. Left hip bacterial culture dated 08/26/2018 showed Finegoldia magna. Left lower extremity venous Doppler study dated 08/24/2018 showed no evidence for deep venous thrombosis. Left lower extremity CT imaging dated 08/24/2018 showed large rim enhancing fluid collection with foci of air within the left hip suggestive of periprosthesis abscess. HOSPITAL COURSE: The patient was initially admitted under the Orthopedic Surgery Service after presenting with left hip pain and infection. CT imaging confirmed evidence of septic arthritis of the left hip in the context of prior total hip arthroplasty. The patient with a known history of chronic dislocations and chronic infection of the left hip. The patient no longer ambulatory and essentially bed-bound status. The patient was initially started on IV antibiotic therapy with vancomycin and Zosyn and evaluated for surgical intervention. The patient underwent incision and drainage with pulse lavage and irrigation on 08/26/2018. The patient was placed on antibiotic spacer and monitored postoperatively. The patient continued on IV antibiotics after a consultation with Infectious Disease Service with subsequent arthrotomy of the left hip and removal of the antibiotic spacers. On extremity on 08/29/2018. Due to patient's overall comorbid conditions and recommendations for long-term antibiotic therapy, the patient underwent right upper extremity PICC line placement with plans for Rocephin 2 g IV daily for up to 6 weeks. The patient has been approved to transfer to [facility] to complete his IV antibiotic therapy course and receive ongoing physical therapy and medical supervision. Overall, the patient clinically stable and ready for transfer on 09/02/2018. DISCHARGE MEDICATIONS: 1. Xanax 0.5 mg p.o. at bedtime. 2. Lasix 40 mg p.o. daily. 3. Gabapentin 300 mg p.o. t.i.d. 4. Levothyroxine 88 mcg p.o. daily. 5. Flomax 0.8 mg p.o. daily. 6. Rocephin 2 g IV daily x6 weeks. 7. Aspirin 81 mg p.o. b.i.d. 8. Xtandi 40 mg four tabs p.o. daily. 9. Duragesic patch 25 mcg q. 72 hours. 10. Ferrous sulfate 325 mg p.o. daily. 11. [place] 10/325 mg 1 tab p.o. q.4 to 6 hours p.r.n. pain. FOLLOW UP: The patient may follow up with Dr. Fuller within 2 weeks. The patient will follow up with Dr. Abdullahi Levin. The patient will follow up with Dr. Paez. CONDITION ON DISCHARGE: Fair. ACTIVITY: 1. Ad-hanna. 2. Fall risk precautions. DIET: Regular. CODE STATUS: Full. DISPOSITION: Discharged to [place], [place] 09/02/2018. Job ID: [id number]
[2019-08-24] MEDS ORDERED: Heparin 1,000 UNITS/ML VIAL ONE (11:11)
== END 2018-09-02 15:15 | DRG 464 ==
LOC: ERS 23:46 → SURG A 08-24 04:33
PROVIDERS: ADMIT Orthopaedic Surgery; ATTEND Orthopaedic Surgery
PROC: 0SPB0JZ Removal of Synthetic Substitute from Left Hip Joint, Open Approach (ICD-10-PCS; principal; 2018-08-26)
PROC: 0SHB08Z Insertion of Spacer into Left Hip Joint, Open Approach (ICD-10-PCS; 2018-08-26)
PROC: 0SPB08Z Removal of Spacer from Left Hip Joint, Open Approach (ICD-10-PCS; 2018-08-29)
PROC: 02HV33Z Insertion of Infusion Device into Superior Vena Cava, Percutaneous Approach (ICD-10-PCS; 2018-09-01)
DX: T84.021A Dislocation of internal left hip prosthesis, initial encounter (principal); M00.852 Arthritis due to other bacteria, left hip; I50.32 Chronic diastolic (congestive) heart failure; E87.1 Hypo-osmolality and hyponatremia; M96.89 Other intraoperative and postprocedural complications and disorders of the musculoskeletal system; B96.89 Other specified bacterial agents as the cause of diseases classified elsewhere; M24.452 Recurrent dislocation, left hip; E87.6 Hypokalemia; G89.4 Chronic pain syndrome; F41.9 Anxiety disorder, unspecified; N40.0 Benign prostatic hyperplasia without lower urinary tract symptoms; E03.9 Hypothyroidism, unspecified; K59.09 Other constipation; F32.9 Major depressive disorder, single episode, unspecified; E78.5 Hyperlipidemia, unspecified; Z74.01 Bed confinement status; Z85.46 Personal history of malignant neoplasm of prostate; Z85.850 Personal history of malignant neoplasm of thyroid; Z95.0 Presence of cardiac pacemaker; Z79.899 Other long term (current) drug therapy; Y83.1 Surgical operation with implant of artificial internal device as the cause of abnormal reaction of the patient, or of later complication, without mention of misadventure at the time of the procedure
CPT/HCPCS: 36415; 36569; 80048; 80053; 80202; 83605; 83735; 85014; 85018; 85025; 85049; 85379; 85610; 85730; 87040; 87070; 87076; 87086; 87205; 96365; 96366; 96367; 96368; 96375; C1713; C1751; J0696; J1644; J2001; J2270; J2370; J2405; J2543; J2704; J3010; J3260; J3370; J3480; J7050

== ENCOUNTER 2018-11-13 22:21 | Inpatient (IN) | payer MEDICARE ==
[2018-11-13 22:40] LABS: #Lymphocytes 0.4 thou/uL (1.20-3.40); #Monocytes 0.8 thou/uL (0.11-0.59); #Neutrophils 8.6 thou/uL (1.40-6.50); %Eosinophils 0.3 % (0.0-10.0); %Lymphocytes 4.4 % (21.0-51.0); %Monocytes 7.9 % (0.0-10.0); %Neutrophils 87.5 % (42.0-75.0); Hemoglobin 13.8 g/dL (14.0-18.0); Mean Corpuscular HGB CONC 33.1 g/dL (32.0-36.0); Mean Corpuscular Hemoglobin 25.6 pg (27.0-31.0); Mean Corpuscular Volume 77.4 fL (78.0-98.0); Mean Platelet Volume 6.3 fL (7.4-10.4); Platelet Count 446 thou/uL (130-400); Red Blood Cell (RBC) Count 5.37 mill/uL (4.70-6.10); White Blood Cell (WBC) Count 9.9 thou/uL (4.8-10.8)
[2018-11-13 22:51] LABS: Bilirubin Small (Negative); Blood, Urine Negative (Negative); Clarity CLEAR (Clear); Glucose, Urine (Dipstick) Negative (Negative); Leukocyte Negative (Negative); Nitrite Negative (Negative); Protein, Urine (Dipstick) Negative (Neg-Trace); Specific Gravity, Urine 1.017 (1.002-1.036); pH, Urine 6.5 (5.0-9.0)
[2018-11-13] MEDS ORDERED: Piperacillin/Tazobactam 4.5 GM VIAL ONE (22:52)
[2018-11-13 23:00] LABS: ALT (SGPT) 203 U/L (8-55); AST (SGOT) 340 U/L (5-34); Albumin 3.4 g/dL (3.4-4.8); Alkaline Phosphatase 1002 U/L (40-150); Anion Gap 17 mmol/L (10-20); BUN (Urea Nitrogen) 23 mg/dL (8.4-25.7); Bilirubin, Total 1.8 mg/dL (0.2-1.2); Calc. Creatinine Clearance 0 mL/min (70-130); Calcium 9.5 mg/dL (7.8-10.44); Carbon Dioxide 23 mmol/L (23-31); Chloride 100 mmol/L (98-107); Estimated GFR-MDRD 53; Globulin 4.1 g/dL (2.4-3.5); Glucose 109 mg/dL (83-110); Protein, Total 7.5 g/dL (5.8-8.1); Sodium 136 mmol/L (136-145)
--- NOTE | 2018-11-13 23:05 | RAD ---
CHEST ONE VIEW: 11/13/18 HISTORY: Fever. Chest pain. COMPARISON: 01/07/18. FINDINGS: The cardiac silhouette is magnified by projection. Pulmonary vasculature remains engorged, similar in appearance to the previous exam. Mediastinum is midline with a dual lead left subclavian cardiac samantha ctronic device. No lobar consolidation or evidence of pneumothorax. IMPRESSION: Chronic mild pulmonary vascular congestion and other findings appear stable. POS: [facility]
[2018-11-13] MEDS ORDERED: Vancomycin HCl 1.5 GM in Sodium Chloride 0.9% 250 ML 300 ML IVPB SCH (23:15)
--- NOTE | 2018-11-13 23:27 | RAD ---
LEFT HIP THREE VIEWS: 11/13/18 HISTORY: Left hip pain. FINDINGS: extensive destructive changes of the femoral head and acetabulum without well defined cortical margin s apparent. Expansion of the remaining osseous components of the femoral head. One half shaft width lateral displacement of a transverse fracture of the proximal femoral shaft with severe apex medial angulation. A second fracture with incomplete healing is present approximately 10 cm beyond the first. Osseous structures are markedly demineralized. IMPRESSION: Aggressive appearing destruction of the left femoral head and acetabulum. Please correlate clinically regarding the possibility of infection. Prior internal fixation of the proximal femoral shaft with fractures that appear to be acute. Osteoporosis. POS: [facility]ON
--- NOTE | 2018-11-13 23:33 | CT ---
CT HEAD NONCONTRAST: 11/13/18 HISTORY: Altered mental status. COMPARISON: 03/19/16. FINDINGS: There is no evidence of acute intracranial hemorrhage or infarct. diffuse cortical atrophy and mild c hronic ischemic small vessel disease are again demonstrated. There is no mass effect or shift of midl ine structures. Visualized paranasal sinuses remain well aerated. IMPRESSION: Chronic type findings. No acute intracranial abnormalities are demonstrated. POS: [facility]
[2018-11-13] MEDS ORDERED: Fentanyl 100 MCG/2 ML VIAL ONE (23:34)
[2018-11-14 02:41] VITALS: BMI 27.8
[2018-11-14] MEDS: Sodium Chloride 0.9% 1,000 ML IV SCH ×3 (03:18→15:54)
[2018-11-14 05:58] LABS: #Lymphocytes 0.8 thou/uL (1.20-3.40); #Monocytes 1.1 thou/uL (0.11-0.59); #Neutrophils 14.3 thou/uL (1.40-6.50); %Eosinophils 0.1 % (0.0-10.0); %Lymphocytes 4.9 % (21.0-51.0); %Monocytes 6.9 % (0.0-10.0); %Neutrophils 88.1 % (42.0-75.0); Hemoglobin 11.5 g/dL (14.0-18.0); Mean Corpuscular HGB CONC 32.5 g/dL (32.0-36.0); Mean Corpuscular Hemoglobin 26.1 pg (27.0-31.0); Mean Corpuscular Volume 80.1 fL (78.0-98.0); Mean Platelet Volume 6.6 fL (7.4-10.4); Platelet Count 393 thou/uL (130-400); RBC Distribution Width 14.1 % (11.5-14.5); Red Blood Cell (RBC) Count 4.41 mill/uL (4.70-6.10); White Blood Cell (WBC) Count 16.2 thou/uL (4.8-10.8)
[2018-11-14 06:11] LABS: Anion Gap 14 mmol/L (10-20); BUN (Urea Nitrogen) 22 mg/dL (8.4-25.7); Calc. Creatinine Clearance 60 mL/min (70-130); Calcium 8.5 mg/dL (7.8-10.44); Carbon Dioxide 22 mmol/L (23-31); Chloride 105 mmol/L (98-107); Estimated GFR-MDRD 60; Glucose 109 mg/dL (83-110); Potassium 3.5 mmol/L (3.5-5.1); Sodium 137 mmol/L (136-145)
[2018-11-14] MEDS: Piperacillin/Tazobactam 4.5 GM in Sodium Chloride 0.9% 100 ML IVPB SCH ×3 (06:24→21:15)
--- NOTE | 2018-11-14 07:05 | ULT ---
RIGHT UPPER QUADRANT ULTRASOUND: Date: 11/14/18 INDICATION: Right upper abdominal pain with elevation of liver function enzymes. Constipation. FINDINGS: There is no focal hepatic lesion. Gallbladder wall is mildly prominent, measuring between 3-4 mm. The re is prominence of the common duct at 1.0 cm, as well as mild prominence of the intrahepatic biliary ductal system. Mild pericholecystic edema is present. No shadowing cholelithiasis. IMPRESSION: Mild gallbladder wall prominence and pericholecystic edema. There is also mild prominence of the bili isabel ductal system. Recommend clinical correlation to exclude evidence of cholecystitis, as well as co rrelation with biliary laboratory values. POS: [facility]
--- NOTE | 2018-11-14 10:24 | CON ---
DATE OF CONSULTATION: CHIEF COMPLAINT: Left hip pain. HISTORY OF PRESENT ILLNESS: Mr. Herring is an 83-year-old male. He was admitted to the hospital last night. He has a long history regarding his left hip. He had a total hip arthroplasty. This was complicated by infection. He has had multiple surgeries in the past. He has had resection of his arthroplasty and repeat irrigation and debridement. His last surgery was in August of 2018. He has been treated with long-term antibiotics as well. He came in last night with low-grade fever he thinks. He is not a very reliable historian because of dementia. PAST MEDICAL HISTORY: Sick sinus syndrome, history of prostate cancer, thyroid cancer, hyperlipidemia, hypothyroidism, and osteoarthritis. PAST SURGICAL HISTORY: Total joint arthroplasties including left hip surgeries as per HPI, inguinal hernia repair, appendectomy, and cataract surgery. PSYCHIATRIC HISTORY: Depression. ALLERGIES: NO KNOWN DRUG ALLERGIES. SOCIAL HISTORY: The patient lives in a nursing facility. Denies tobacco, alcohol, or drug use. REVIEW OF SYSTEMS: Positive for mild left hip pain. Otherwise, he denies 10-point review of systems. IMAGING STUDIES: X-rays of the left hip demonstrate resection of total hip arthroplasty. There are several small retained cables. There is a proximal femur fracture. The patient has severe osteoporosis. LABORATORY DATA: White blood cell count is 16, hemoglobin is 11.5, hematocrit is 35.3. PHYSICAL EXAMINATION: GENERAL: The patient is alert and oriented, no apparent distress, sitting upright. HEENT: Normocephalic and atraumatic. RESPIRATORY: Breathing comfortably. ABDOMEN: Soft, nontender, and nondistended. MUSCULOSKELETAL: The patient's left lower extremity has a well-healed wound. There is faint erythema, slightly increased warmth. No fluctuance. Nontender to palpation. The leg is shortened and rotated. 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 PLAN: At this point, the patient has been started on intravenous antibiotics. He will likely need a course of antibiotics if he is having a flare of infection. He has a CT-guided aspirate ordered. I think this would be appropriate to try and obtain deep fluid for culture. I would not recommend surgical intervention at this point. Hopefully, he can be treated nonoperatively. At this point, further surgical intervention would likely expose him to more risk than he would gain benefit from repeat irrigation and debridement. We will continue to follow. Job ID: [id number]
[2018-11-14] MEDS ORDERED: Midazolam HCl 2 mg/2 ml Vial ONE (10:32)
[2018-11-14] MEDS ORDERED: Sodium Bicarbonate 2.5 MEQ/5 ML VIAL ONE (10:32)
[2018-11-14] MEDS ORDERED: Fentanyl 100 MCG/2 ML VIAL ONE (10:32)
--- NOTE | 2018-11-14 12:50 | CT ---
FCT guided left hip aspiration HISTORY: Septic arthritis. FINDINGS: After explaining the procedure and answering all questions, Limited CT imaging was performe d. A left lateral approach was planned. Sterile technique, buffered local anesthetic, CT guidance, an d a left lateral approach were used carefully advance a 17-gauge trocar needle into the inflammation and fluid centered at the left hip. Position was confirmed with CT. A total volume of 25 cc of turbid blood tinged fluid was aspirated and sent to microbiology for evalu ation. Needle was removed. No evidence of complication. Patient tolerated the procedure well and was returned in unchanged condition. IMPRESSION: Technically successful CT-guided aspiration of left hip fluid. Microbiology analysis pend ing.
[2018-11-14 12:57] LABS: BF Color Red; Clarity Cloudy/Turbid (Clear); RBC Count-Automated 146000 /cumm; Tube # EDTA; WBC/NonHematic-Auto 310 /cumm
[2018-11-14 14:11] LABS: BF Segmented Neutrophils 36 %; Cell Count Non Hematic 14 %; Lymphocytes 50 %
[2018-11-14] MEDS: Acetaminophen 325 MG TAB PO PRN (14:26)
[2018-11-14] MEDS ORDERED: Piperacillin/Tazobactam 4.5 GM VIAL ONE (15:25)
--- NOTE | 2018-11-14 15:41 | HP ---
PRIMARY CARE PROVIDER: Watson Alegria MD CHIEF COMPLAINT: Fever. HISTORY OF PRESENT ILLNESS: Mr. Herring is a pleasant 83-year-old gentleman, who was seen at [facility] on November 14, 2018, following transfer from [facility] [place] [facility]. 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 He was discharged to [facility] [place] [facility] following that admission. The patient is able to provide some history. Collateral history was obtained from review of medical records as well as discussion with emergency room physician. He reportedly had a fever at [facility], with a temperature of 102 degrees Fahrenheit. He also had confusion. He denies any nausea or vomiting. He reports pain over his left hip. He denies any abdominal pain. He denies any chest pain. REVIEW OF SYSTEMS: All other systems reviewed and found to be negative. PAST MEDICAL HISTORY: Sick sinus syndrome, thyroid cancer, prostate cancer, sciatica, dyslipidemia, hypothyroidism, osteoarthritis, multiple joint arthroplasties and arthrotomy of left hip with irrigation on August 29, 2018. SURGICAL HISTORY: Thyroidectomy, bilateral total hip arthroplasties with multiple revision surgeries related to infection and dislocation of the left hip, inguinal hernia repair, appendectomy, previous eye surgery, and arthrotomy of the left foot with irrigation on August 29, 2018. SOCIAL HISTORY: The patient denies current tobacco use, alcohol use, or recreational drug use. FAMILY HISTORY: No family history of premature coronary artery disease. CODE STATUS: I discussed his code status. He is full code. ALLERGIES: NO KNOWN DRUG ALLERGIES. CURRENT MEDICATIONS: 1. Oxycodone/acetaminophen 10/325 mg every 4 hours as needed. 2. Xanax 0.5 mg at bedtime as needed. 3. Xtandi 160 mg daily. 4. Fentanyl 25 mcg patch every 72 hours. 5. Ferrous sulfate 325 mg daily. 6. Lasix 40 mg daily. 7. Gabapentin 300 mg three times a day. 8. Synthroid 88 mcg daily. 9. Flomax 0.8 mg daily. 10. Aspirin 81 mg 2 times a day. PHYSICAL EXAMINATION: GENERAL: On examination, Mr. Herring is awake and alert, not in acute distress. VITAL SIGNS: Blood pressure is 102/63, pulse 67, respiratory rate 16, and oxygen saturation 96% on room air. He is afebrile. EYES: No scleral icterus, no conjunctival pallor. ENT: Moist mucosal membranes. No oropharyngeal erythema or exudates. NECK: Supple, nontender, trachea is midline. RESPIRATORY: Accessory muscles of breathing are not active. Chest wall movements are symmetric bilaterally. Lungs are clear to auscultation without wheeze, rhonchi, or crepitations. CARDIOVASCULAR: S1 and S2 are heard, regular. Peripheral pulses palpable. ABDOMEN: Soft, nontender, bowel sounds are heard. NEUROLOGIC: Cranial nerves 2 through 12 are intact. MUSCULOSKELETAL: Deformity of the thigh, effusion over the left hip. SKIN: Erythema and elevated temperature over the left hip. LYMPHATIC: No inguinal lymphadenopathy. PSYCHIATRIC: Normal mood, normal affect, the patient is oriented to person and place, not to time. LABORATORY DATA: Mr. Herring is labs and investigations were reviewed. I reviewed his electrocardiogram, which shows electronic ventricular paced rhythm, no ST changes to suggest an acute coronary syndrome. We also reviewed his chest x-ray , which does not show any pulmonary infiltrates. Noncontrast CT scan of the brain was unremarkable, showing only chronic findings. Left hip x-ray shows aggressive-appearing destruction of the left femoral head and acetabulum, prior internal fixation of the proximal femoral shaft with fractures that appear to be acute and osteoporosis. He has leukocytosis with 16,200 white cells, of which 88% are neutrophils, normocytic anemia with hemoglobin 11.5, normal platelet count. Normal electrolytes, normal creatinine, elevated total bilirubin of 1.8, elevated AST of 340, elevated ALT of 203, and elevated alkaline phosphatase of 1002. TSH is normal. Urinalysis is positive for small amount of bilirubin. ASSESSMENT AND PLAN: Mr. Herring is a pleasant 83-year-old gentleman, who was seen at [facility] on November 14, 2018. His problem list includes : 1. Sepsis: Mr. Herring is presenting with sepsis, most likely source of infection in the left hip. He will be admitted to the hospital for further management including intravenous antibiotics. 2. Septic arthritis of left hip: He has been started on vancomycin and Zosyn, which I will continue. We will consult Infectious Disease Service. Orthopedic Surgery Service has already been consulted. 3. Dyslipidemia: We will resume statin once clarified. 4. Hypothyroidism: We will resume replacement therapy once home medications are clarified. 5. History of prostate cancer: We will continue Xtandi. 6. Depression: Mild, stable. Many thanks for allowing me to participate in your patient's care. Please feel free to contact me with any questions or concerns. LEVEL OF RISK: High. LEVEL OF COMPLEXITY: High. Job ID: [id number] MTDD
[2018-11-14] MEDS: fentaNYL 75 mcg/hour Patch TD SCH (22:02)
[2018-11-14] MEDS: Vancomycin HCl 1.25 GM in Sodium Chloride 0.9% 250 ML 250 ML IVPB SCH (22:44)
[2018-11-14] MEDS: oxyCODONE/Acetaminophen 5 mg/325 mg Tablet PO PRN (22:54)
[2018-11-15 05:11] LABS: #Basophils 0.1 thou/uL (0.0-0.2); #Eosinphils 0.5 thou/uL (0.0-0.7); #Lymphocytes 1.4 thou/uL (1.20-3.40); #Monocytes 0.8 thou/uL (0.11-0.59); #Neutrophils 6.5 thou/uL (1.40-6.50); %Basophils 0.6 % (0.0-1.0); %Eosinophils 4.9 % (0.0-10.0); %Lymphocytes 15.6 % (21.0-51.0); %Monocytes 8.5 % (0.0-10.0); %Neutrophils 70.4 % (42.0-75.0); Hemoglobin 10.6 g/dL (14.0-18.0); Mean Corpuscular HGB CONC 32.9 g/dL (32.0-36.0); Mean Corpuscular Hemoglobin 26.6 pg (27.0-31.0); Mean Platelet Volume 6.8 fL (7.4-10.4); Platelet Count 333 thou/uL (130-400); Red Blood Cell (RBC) Count 3.96 mill/uL (4.70-6.10); White Blood Cell (WBC) Count 9.2 thou/uL (4.8-10.8)
[2018-11-15 05:30] LABS: ALT (SGPT) 87 U/L (8-55); AST (SGOT) 84 U/L (5-34); Albumin 2.7 g/dL (3.4-4.8); Alkaline Phosphatase 475 U/L (40-150); Anion Gap 12 mmol/L (10-20); BUN (Urea Nitrogen) 18 mg/dL (8.4-25.7); Bilirubin, Total 0.9 mg/dL (0.2-1.2); Calc. Creatinine Clearance 74 mL/min (70-130); Calcium 8.5 mg/dL (7.8-10.44); Carbon Dioxide 21 mmol/L (23-31); Chloride 108 mmol/L (98-107); Estimated GFR-MDRD 76; Globulin 3.3 g/dL (2.4-3.5); Glucose 94 mg/dL (83-110); Potassium 3.1 mmol/L (3.5-5.1); Sodium 138 mmol/L (136-145)
[2018-11-15] MEDS: Sodium Chloride 0.9% 1,000 ML IV SCH ×2 (06:15→17:19)
[2018-11-15] MEDS: Piperacillin/Tazobactam 4.5 GM in Sodium Chloride 0.9% 100 ML IVPB SCH ×3 (06:29→21:37)
[2018-11-15] MEDS: Levothyroxine Sodium 88 MCG TAB PO SCH (06:33)
[2018-11-15] MEDS: oxyCODONE/Acetaminophen 5 mg/325 mg Tablet PO PRN ×3 (06:57→23:01)
[2018-11-15] MEDS: Gabapentin 300 MG CAP PO SCH ×3 (08:26→21:38)
[2018-11-15] MEDS: Enoxaparin Sodium 40 MG/0.4 ML SYRINGE SC SCH (08:27)
--- NOTE | 2018-11-15 13:27 | PDOC.PN ---
- Subjective Encounter Start Date: 11/15/18 Encounter Start Time: 13:25 Subjective: Admitted with left hip pain associated with fever and confusiuon -: found to have sepsis from presumed left hip septic arthritis. -: Feeling better. Conversational. - Objective Resuscitation Status - Order Detail: 11/14/18 00:24 Resuscitation Status Routine Resuscitation Status: FULL: Full Resuscitation Vital Signs & Weight: Vital Signs (12 hours) Temp Pulse Resp BP Pulse Ox 11/15/18 12:00 97.4 F L 65 18 117/75 98 11/15/18 08:00 97.6 F 60 18 110/70 95 11/15/18 04:06 97.8 F 61 20 111/70 95 11/15/18 04:01 95 Weight Admit Weight 188 lb 6 oz Weight 188 lb 6 oz I&O: 11/14/18 11/15/18 11/16/18 06:59 06:59 06:59 Intake Total 1980 Output Total 400 Balance 1580 Result Diagrams: 11/15/18 04:54 11/15/18 04:54 Phys Exam - Physical Examination elderly male in no obvious distress HEENT: PERRLA, moist MMs Neck: supple fair air entry bilaterally. decreased at the bases Cardiovascular: RRR Gastrointestinal: soft, no distention, positive bowel sounds Left thigh edema noted. Left lower extremity shortening deformity noted awake and conversationa;. cranial nerves 2-12 are intact. Some memory lapses noted Dx/Plan (1) Septic arthritis of hip Code(s): M00.9 - PYOGENIC ARTHRITIS, UNSPECIFIED Status: Acute Qualifiers: Laterality: left Comment: Continue Rocephin IV for 6 weeks, plan for indefinite po Pen-VeeK after completion of IV Rocephin, pain control, wound vac (2) ELADIO (acute kidney injury) Code(s): N17.9 - ACUTE KIDNEY FAILURE, UNSPECIFIED Status: Acute (3) Abnormal LFTs Code(s): R94.5 - ABNORMAL RESULTS OF LIVER FUNCTION STUDIES Status: Acute (4) Failed total hip arthroplasty Code(s): T84.018A - BROKEN INTERNAL JOINT PROSTHESIS, OTHER SITE, INIT ENCNTR; Z96.649 - PRESENCE OF UNSPECIFIED ARTIFICIAL HIP JOINT Status: Acute (5) Hypokalemia Code(s): E87.6 - HYPOKALEMIA Status: Acute Comment: Improved, continue KCL supplementation (6) Left hip pain Code(s): M25.552 - PAIN IN LEFT HIP Status: Acute Comment: s/p surgery, post op day 1 (7) Chronic diastolic heart failure Code(s): I50.32 - CHRONIC DIASTOLIC (CONGESTIVE) HEART FAILURE Status: Chronic Comment: ACC stage C - compensated (8) Chronic pain syndrome Code(s): G89.4 - CHRONIC PAIN SYNDROME Status: Chronic (9) Dyslipidemia Code(s): E78.5 - HYPERLIPIDEMIA, UNSPECIFIED Status: Chronic (10) H/O prostate cancer Code(s): Z85.46 - PERSONAL HISTORY OF MALIGNANT NEOPLASM OF PROSTATE Status: Chronic (11) Hypothyroidism Code(s): E03.9 - HYPOTHYROIDISM, UNSPECIFIED Status: Chronic Comment: Continue Levothyroxine 88mcg daily (12) Physical deconditioning Code(s): R53.81 - OTHER MALAISE Status: Chronic Comment: PT for ROM exercises, SNF options (13) Acute metabolic encephalopathy Code(s): G93.41 - METABOLIC ENCEPHALOPATHY Status: Acute Comment: Present on admission (14) Sepsis Code(s): A41.9 - SEPSIS, UNSPECIFIED ORGANISM Status: Acute Comment: Present on admission - Plan Continue current broad spectrum antibiotics. Awaiting culture results -: Replete serum potassium. Get serum magnesium -: Monitor renal and liver function -: Analgesic as needed -: ID input awaited. * .
[2018-11-15] MEDS: Vancomycin HCl 1.25 GM in Sodium Chloride 0.9% 250 ML 250 ML IVPB SCH (23:04)
[2018-11-16 05:50] LABS: #Basophils 0.1 thou/uL (0.0-0.2); #Eosinphils 0.5 thou/uL (0.0-0.7); #Monocytes 0.7 thou/uL (0.11-0.59); #Neutrophils 4.3 thou/uL (1.40-6.50); %Basophils 1.3 % (0.0-1.0); %Eosinophils 6.1 % (0.0-10.0); %Monocytes 9.7 % (0.0-10.0); %Neutrophils 56.8 % (42.0-75.0); Hemoglobin 11.7 g/dL (14.0-18.0); Mean Corpuscular HGB CONC 31.6 g/dL (32.0-36.0); Mean Corpuscular Hemoglobin 25.6 pg (27.0-31.0); Mean Platelet Volume 6.9 fL (7.4-10.4); Platelet Count 362 thou/uL (130-400); RBC Distribution Width 14.3 % (11.5-14.5); Red Blood Cell (RBC) Count 4.58 mill/uL (4.70-6.10); White Blood Cell (WBC) Count 7.5 thou/uL (4.8-10.8)
[2018-11-16] MEDS: Levothyroxine Sodium 88 MCG TAB PO SCH (05:57)
[2018-11-16] MEDS: Piperacillin/Tazobactam 4.5 GM in Sodium Chloride 0.9% 100 ML IVPB SCH ×3 (05:58→21:19)
[2018-11-16 06:08] LABS: ALT (SGPT) 59 U/L (8-55); AST (SGOT) 43 U/L (5-34); Albumin 2.9 g/dL (3.4-4.8); Alkaline Phosphatase 416 U/L (40-150); Anion Gap 14 mmol/L (10-20); BUN (Urea Nitrogen) 14 mg/dL (8.4-25.7); Bilirubin, Total 0.6 mg/dL (0.2-1.2); Calc. Creatinine Clearance 80 mL/min (70-130); Calcium 8.8 mg/dL (7.8-10.44); Carbon Dioxide 19 mmol/L (23-31); Chloride 108 mmol/L (98-107); Estimated GFR-MDRD 84; Globulin 3.8 g/dL (2.4-3.5); Glucose 73 mg/dL (83-110); Potassium 3.2 mmol/L (3.5-5.1); Protein, Total 6.7 g/dL (5.8-8.1); Sodium 138 mmol/L (136-145)
[2018-11-16] MEDS: oxyCODONE/Acetaminophen 5 mg/325 mg Tablet PO PRN ×3 (06:30→22:58)
[2018-11-16] MEDS: Sodium Chloride 0.9% 1,000 ML IV SCH (08:40)
[2018-11-16] MEDS: Gabapentin 300 MG CAP PO SCH ×3 (08:41→21:20)
[2018-11-16] MEDS: Enoxaparin Sodium 40 MG/0.4 ML SYRINGE SC SCH (08:41)
--- NOTE | 2018-11-16 12:58 | PDOC.PN ---
- Subjective Encounter Start Date: 11/16/18 Encounter Start Time: 12:56 Subjective: Feeling better. No new problem -: tolerating oral intake. -: No fever since admission. - Objective Resuscitation Status - Order Detail: 11/14/18 00:24 Resuscitation Status Routine Resuscitation Status: FULL: Full Resuscitation Vital Signs & Weight: Vital Signs (12 hours) Temp Pulse Resp BP Pulse Ox 11/16/18 11:49 98.1 F 60 18 145/88 H 99 11/16/18 07:18 97.7 F 62 16 127/79 98 11/16/18 04:00 97.8 F 61 16 149/87 H 98 Weight Admit Weight 188 lb 6 oz Weight 188 lb 6 oz I&O: 11/15/18 11/16/18 11/17/18 06:59 06:59 06:59 Intake Total 1980 1830 Output Total 400 400 Balance 1580 1430 Result Diagrams: 11/16/18 05:30 11/16/18 05:30 Phys Exam - Physical Examination Constitutional: NAD HEENT: PERRLA, moist MMs Neck: supple Respiratory: no rhonchi fair air entry bilaterally with few bibasal crackles Cardiovascular: RRR Gastrointestinal: soft, non-tender, no distention, positive bowel sounds Left lower extremity laterally rotated. Trace bilateral leg edema Neurological: non-focal, moves all 4 limbs cranial nerves 2-12 are grossly intact Psychiatric: A&O x 3 Dx/Plan (1) Septic arthritis of hip Code(s): M00.9 - PYOGENIC ARTHRITIS, UNSPECIFIED Status: Acute Qualifiers: Laterality: left (2) ELADIO (acute kidney injury) Code(s): N17.9 - ACUTE KIDNEY FAILURE, UNSPECIFIED Status: Acute Comment: Improved (3) Abnormal LFTs Code(s): R94.5 - ABNORMAL RESULTS OF LIVER FUNCTION STUDIES Status: Acute (4) Hypokalemia Code(s): E87.6 - HYPOKALEMIA Status: Acute Comment: Improved, continue KCL supplementation (5) Left hip pain Code(s): M25.552 - PAIN IN LEFT HIP Status: Acute Comment: Improved (6) Chronic diastolic heart failure Code(s): I50.32 - CHRONIC DIASTOLIC (CONGESTIVE) HEART FAILURE Status: Chronic Comment: ACC stage C - compensated (7) Chronic pain syndrome Code(s): G89.4 - CHRONIC PAIN SYNDROME Status: Chronic (8) Dyslipidemia Code(s): E78.5 - HYPERLIPIDEMIA, UNSPECIFIED Status: Chronic (9) H/O prostate cancer Code(s): Z85.46 - PERSONAL HISTORY OF MALIGNANT NEOPLASM OF PROSTATE Status: Chronic (10) Hypothyroidism Code(s): E03.9 - HYPOTHYROIDISM, UNSPECIFIED Status: Chronic Comment: Continue Levothyroxine 88mcg daily (11) Physical deconditioning Code(s): R53.81 - OTHER MALAISE Status: Chronic (12) Acute metabolic encephalopathy Code(s): G93.41 - METABOLIC ENCEPHALOPATHY Status: Acute Comment: Present on admission. Resolved (13) Sepsis Code(s): A41.9 - SEPSIS, UNSPECIFIED ORGANISM Status: Acute Comment: Present on admission. Resolved (14) Inability to ambulate due to left hip Code(s): R26.2 - DIFFICULTY IN WALKING, NOT ELSEWHERE CLASSIFIED Status: Acute - Plan Continue current broad spectrum antibiotics while awaiting culture and ID -: Replete serum potassium and get magnesium level. -: DC IVF to avoid fluid overload as patient has h/o CHF * .
[2018-11-16] MEDS: Potassium Chloride 20 MEQ TAB PO SCH ×2 (14:59→17:56)
--- NOTE | 2018-11-16 15:33 | CON ---
DATE OF CONSULTATION: 11/16/2018 REASON FOR CONSULTATION: Recrudescence of inflammatory changes, left hip site. HISTORY OF PRESENT ILLNESS: An 83-year-old known to me from prior visits. I last saw him in September 06 when he presented with history of prostate cancer and thyroid cancer, bilateral hip replacements with left hip arthroplasty site infection. 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 Initial treatment had been in 2016, and then, he developed recrudescence of infection. In July 05, he had a revision total hip replacement, and then in August 26, 2018, he had a dislocated infected left hip. During the procedure, there was inadvertent spiral fracture around the hip prosthesis from a very severely osteoporotic bone. He opened up the old incision and excised the sinus tract with pus removed. The acetabulum was removed without difficulty and the stem of the implant was removed after osteotomy of the femur. Cables were cut off and curetting of the acetabulum was completed to bleeding bone with copious irrigation and antibiotic spacer. Subsequently, few days later, he had removal of the antibiotic spacer and irrigation performed and the area was closed. After that, he was supposed to have received antimicrobials for at least 42 days and then be transitioned to oral antimicrobial therapy for a protracted period of time at least, that was our intention. He is readmitted now with fever and inflammatory changes of left hip associated with pain. The patient had the hip x-ray, which showed the area of resection of the previous implant and had a CT-guided aspiration with 25 mL of turbid fluid aspirated from the site. Currently, Mr. Herring is awake. He has minimal pain at the site. No headaches, visual symptoms, sore throat, odynophagia, or dysphagia. No cough or sputum production. No chest pain. No abdominal pain or diarrhea. No genitourinary symptoms. No other joint symptoms. PAST MEDICAL HISTORY: Prostate cancer, thyroid cancer in remission, bilateral hip replacements, infection of left hip with loosening, initially had revision in June 2017, and then, he had implant removed recently and the area was left without any other device or implant or spacer. Finegoldia magna has been retrieved from 2 different samples from this side at intervals, and for some reason, I do not see in the list of medications, the recommended penicillin VK. Past medical history includes also sick sinus syndrome, hyperlipidemia, hypothyroidism. ALLERGIES: NONE. SOCIAL HISTORY: Lives at the [facility]. Never smoker. FAMILY HISTORY: Noncontributory. CURRENT MEDICATIONS: 1. Xanax. 2. Lovenox. 3. Duragesic. 4. Neurontin. 5. Synthroid. 6. Zosyn. 7. Vancomycin. PHYSICAL EXAMINATION: VITAL SIGNS: Temperature has been normal. Other vital signs are not remarkable. NECK: No lymphadenopathy. SKIN: Shows the area of erythema, left hip, with swelling. There is mild erythema of the perianal area. Little bit of bruising in the third toe, right foot. The patient has a peripheral IV access, and I's and O's are positive. He has an indwelling Guerra catheter, which appears to have been inserted here in the hospital. Ocular movements conjugate. Conjunctivae normal. Oral cavity normal. NECK: Supple. No jugular vein distention. LUNGS: Symmetric air entry. S1, S2. Regular rate. No S3 or S4. ABDOMEN: Soft. The patient has a pacemaker in place with no inflammatory changes other than Guerra. : Genital exam is normal. EXTREMITIES: Limitation in range of motion left side from pain. Pulses are 1+ in dorsalis pedis. Trace edema, lower extremities. He is awake and oriented times self, place, and time. Follows command, pleasant, a little sluggish on replies. LABORATORY DATA: White cell count of 16.2, now 7.5; hemoglobin 11.7; platelets 362. Sodium 138, creatinine 0.87. Bilirubin normal. AST 43, ALT 59, alkaline phosphatase 416. Urinalysis was normal. The fluid from the joint with 310 wbc's, 36% neutrophils, and 50% lymphocytes. IMAGING STUDIES: The patient had abdominal ultrasound, which showed mild gallbladder wall prominence and pericholecystic edema with mild prominence of biliary ductal system. The chest x-ray with chronic mild pulmonary vascular congestion and other findings stable. Hip x-ray with destruction of left femoral head and acetabulum that is from the surgical debridement. ASSESSMENT: 1. Prostate cancer. He states that it is stage IV prostate cancer. 2. 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 It is not clear that the patient had been on the recommended suppressive penicillin VK as we had described in our notes previously from the August admission. 3. Recrudescence of fever. Reported pain in the left hip, although the patient himself does not complain of much pain in the left hip. Seems to be more concerned about his prostate. 4. Abnormal liver function tests with abnormalities noted in the ultrasound of the gallbladder. 5. Abnormal or at least microscopically abnormal fluid aspirate from the left hip site. DISCUSSION: The number of WBCs in the fluid in the differential of the white cells would argue against an infectious process. We are still waiting on the culture results. The Gram stain did not show any organisms with mostly RBCs noted in the area. It is possible therefore that this site does not represent the primary issue that led to the admission. We will check the patient's respiratory virus PCR panel and may have to consider his gallbladder as a possible involved site in view of the findings both on the chemistry as well as the ultrasound results. The other possibility would be urinary tract obstruction, but urinalysis was fairly benign, so this appears to be less likely. If the cultures from the fluid are negative from the aspirate, then we will have to consider the gallbladder as a more likely scenario here rather than the persistence of left hip infection. Job ID: [id number]
[2018-11-16] MEDS: Vancomycin HCl 1.25 GM in Sodium Chloride 0.9% 250 ML 250 ML IVPB SCH (23:00)
[2018-11-17] MEDS: Levothyroxine Sodium 88 MCG TAB PO SCH (05:12)
[2018-11-17] MEDS: Piperacillin/Tazobactam 4.5 GM in Sodium Chloride 0.9% 100 ML IVPB SCH ×3 (05:12→18:21)
[2018-11-17 06:22] LABS: #Basophils 0.1 thou/uL (0.0-0.2); #Eosinphils 0.3 thou/uL (0.0-0.7); #Lymphocytes 1.9 thou/uL (1.20-3.40); #Monocytes 0.6 thou/uL (0.11-0.59); #Neutrophils 3.8 thou/uL (1.40-6.50); %Eosinophils 4.7 % (0.0-10.0); %Monocytes 8.5 % (0.0-10.0); %Neutrophils 56.9 % (42.0-75.0); Hemoglobin 10.9 g/dL (14.0-18.0); Mean Corpuscular HGB CONC 32.4 g/dL (32.0-36.0); Mean Corpuscular Hemoglobin 25.5 pg (27.0-31.0); Mean Corpuscular Volume 78.9 fL (78.0-98.0); Mean Platelet Volume 6.9 fL (7.4-10.4); Platelet Count 363 thou/uL (130-400); RBC Distribution Width 14.1 % (11.5-14.5); Red Blood Cell (RBC) Count 4.26 mill/uL (4.70-6.10); White Blood Cell (WBC) Count 6.6 thou/uL (4.8-10.8)
[2018-11-17 06:37] LABS: ALT (SGPT) 36 U/L (8-55); AST (SGOT) 20 U/L (5-34); Albumin 2.7 g/dL (3.4-4.8); Alkaline Phosphatase 303 U/L (40-150); Anion Gap 14 mmol/L (10-20); BUN (Urea Nitrogen) 10 mg/dL (8.4-25.7); Bilirubin, Total 0.5 mg/dL (0.2-1.2); Calc. Creatinine Clearance 92 mL/min (70-130); Calcium 8.4 mg/dL (7.8-10.44); Carbon Dioxide 17 mmol/L (23-31); Chloride 111 mmol/L (98-107); Estimated GFR-MDRD Greater than 90; Glucose 62 mg/dL (83-110); Potassium 3.8 mmol/L (3.5-5.1); Protein, Total 5.7 g/dL (5.8-8.1); Sodium 138 mmol/L (136-145)
[2018-11-17] MEDS: oxyCODONE/Acetaminophen 5 mg/325 mg Tablet PO PRN ×3 (06:55→22:57)
[2018-11-17] MEDS: Enoxaparin Sodium 40 MG/0.4 ML SYRINGE SC SCH (08:48)
[2018-11-17] MEDS: Gabapentin 300 MG CAP PO SCH ×3 (08:48→21:19)
--- NOTE | 2018-11-17 15:53 | PDOC.PN ---
- Subjective Encounter Start Date: 11/17/18 Encounter Start Time: 12:00 Subjective: no hip or abd pain -: no nausea or dyscomfort -: is hard of hearing, eating well - Objective Resuscitation Status - Order Detail: 11/14/18 00:24 Resuscitation Status Routine Resuscitation Status: FULL: Full Resuscitation MAR Reviewed: Yes Vital Signs & Weight: Vital Signs (12 hours) Temp Pulse Resp BP Pulse Ox 11/17/18 12:40 97.5 F L 73 16 143/83 H 96 11/17/18 07:30 97.6 F 65 14 123/73 95 11/17/18 04:00 97.4 F L 63 16 157/84 H 97 Weight Admit Weight 188 lb 6 oz Weight 188 lb 6 oz I&O: 11/16/18 11/17/18 11/18/18 06:59 06:59 06:59 Intake Total 3630 Output Total 2250 Balance 1380 Result Diagrams: 11/17/18 05:33 11/17/18 05:33 Phys Exam - Physical Examination HEENT: PERRLA, moist MMs Neck: no JVD, supple Respiratory: no wheezing, no rales Cardiovascular: RRR, no significant murmur Gastrointestinal: soft, non-tender, positive bowel sounds no rigidity or guarding Musculoskeletal: no edema, pulses present left leg is short, poor range of motion at hip likely due to removal of ortiz Neurological: non-focal, moves all 4 limbs Psychiatric: normal affect, A&O x 3 Dx/Plan (1) Septic arthritis of hip Code(s): M00.9 - PYOGENIC ARTHRITIS, UNSPECIFIED Status: Suspected Qualifiers: Laterality: left (2) Abnormal LFTs Code(s): R94.5 - ABNORMAL RESULTS OF LIVER FUNCTION STUDIES Status: Acute (3) Anxiety and depression Code(s): F41.8 - OTHER SPECIFIED ANXIETY DISORDERS Status: Chronic (4) Chronic diastolic heart failure Code(s): I50.32 - CHRONIC DIASTOLIC (CONGESTIVE) HEART FAILURE Status: Chronic Comment: ACC stage C - compensated (5) Chronic pain syndrome Code(s): G89.4 - CHRONIC PAIN SYNDROME Status: Chronic (6) DJD (degenerative joint disease) Code(s): M19.90 - UNSPECIFIED OSTEOARTHRITIS, UNSPECIFIED SITE Status: Chronic Qualifiers: Osteoarthritis location: unspecified site (7) H/O prostate cancer Code(s): Z85.46 - PERSONAL HISTORY OF MALIGNANT NEOPLASM OF PROSTATE Status: Chronic (8) Hypothyroidism Code(s): E03.9 - HYPOTHYROIDISM, UNSPECIFIED Status: Chronic Comment: Continue Levothyroxine 88mcg daily - Plan hemostable -: await left hip cultures -: lft's in am, no clinical ruq pain -: on vanc and zosyn, fentanyl tts, neurontin, oxycodone -: is wheel chair bound at baseline * . Review of Systems - Medications/Allergies Allergies/Adverse Reactions: Allergies Allergy/AdvReac Type Severity Reaction Status Date / Time No Known Allergies Allergy Verified 04/12/17 10:53 Medications: Current Medications Acetaminophen (Tylenol) 650 mg PO Q4H PRN PRN Reason: Headache/Fever/Mild Pain (1-3) Last Admin: 11/14/18 14:26 Dose: 650 mg Alprazolam (Xanax) 0.5 mg PO HSPRN PRN PRN Reason: Anxiety/Insomnia Enoxaparin Sodium (Lovenox) 40 mg SC 0900 [facility] Last Admin: 11/17/18 08:48 Dose: 40 mg Fentanyl (Duragesic) 75 mcg TD Q72H [facility] Last Admin: 11/14/18 22:02 Dose: 75 mcg Gabapentin (Neurontin) 300 mg PO TID [facility] Last Admin: 11/17/18 15:16 Dose: 300 mg Piperacillin Sod/Tazobactam (Sod 4.5 gm/ Sodium Chloride) 100 mls @ 200 mls/hr IVPB Q8HR [facility] Last Admin: 11/17/18 15:17 Dose: 100 mls Vancomycin HCl 1.25 gm/ Sodium (Chloride) 250 mls @ 166.667 mls/hr IVPB 2300 [facility] Last Admin: 11/16/18 23:00 Dose: 250 mls Levothyroxine Sodium (Synthroid) 88 mcg PO 0600 [facility] Last Admin: 11/17/18 05:12 Dose: 88 mcg Miscellaneous Medication (Pharmacy To Dose) 1 each IVPB PRN PRN PRN Reason: SEPSIS Ondansetron HCl (Zofran Odt) 4 mg PO Q6H PRN PRN Reason: Nausea/Vomiting Oxycodone/Acetaminophen (Percocet 5/325) 1 tab PO Q8H PRN PRN Reason: Moderate to Severe Pain (4-10) Last Admin: 11/17/18 15:17 Dose: 1 tab
[2018-11-17] MEDS: fentaNYL 75 mcg/hour Patch TD SCH (22:19)
--- NOTE | 2018-11-17 22:37 | PRG ---
DATE OF SERVICE: 11/17/2018 SUBJECTIVE: Mr. Herring is somewhat apathetic, but he still answers questions, little bit of hearing impairment. Not much pain anymore. No respiratory symptoms. No abdominal pain. He has been afebrile since admission. OBJECTIVE: HEENT: Ocular movements conjugate. NECK: Supple. LUNGS: Symmetric. Clear breath sounds. HEART: S1 and S2, regular rate. ABDOMEN: Soft, not distended. EXTREMITIES: The left hip has no significant changes. LABORATORY DATA: White cell count 6.6, hemoglobin 10.9, platelets 368. The liver profile showed clear-cut improvement of the initially abnormal bilirubin, AST, ALT, and alkaline phosphatase. The bilirubin and transaminases have normalized now and alkaline phosphatase is reducing from 1000 to 300. The culture from the hip aspirate is thus far negative. Respiratory virus PCR panel is negative. ASSESSMENT AND DISCUSSION: Prostate cancer stage IV. 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 Review of the negative aspirates from the left hip including the lack of WBCs and negative cultures, I would suggest that the biliary tract abnormalities are likely the culprit rather than with hip persistence of infection. He may need a cholecystectomy or just conservative management. May have choledocholithiasis with transient cholangitis. In terms of his left hip low-dose Pen-Vee K for suppressive therapy for few months. Job ID: [id number] MTDD
[2018-11-17 22:44] LABS: Vancomycin, Trough 16.5 ug/mL
[2018-11-18] MEDS: Piperacillin/Tazobactam 4.5 GM in Sodium Chloride 0.9% 100 ML IVPB SCH ×4 (00:34→22:04)
[2018-11-18] MEDS: Vancomycin HCl 1.25 GM in Sodium Chloride 0.9% 250 ML 250 ML IVPB SCH ×2 (00:35→23:17)
[2018-11-18] MEDS: Levothyroxine Sodium 88 MCG TAB PO SCH (05:43)
[2018-11-18] MEDS: oxyCODONE/Acetaminophen 5 mg/325 mg Tablet PO PRN ×3 (06:54→22:04)
[2018-11-18] MEDS: Gabapentin 300 MG CAP PO SCH ×3 (08:44→20:05)
[2018-11-18] MEDS: Enoxaparin Sodium 40 MG/0.4 ML SYRINGE SC SCH (08:45)
[2018-11-18 09:29] LABS: #Basophils 0.1 thou/uL (0.0-0.2); #Eosinphils 0.5 thou/uL (0.0-0.7); #Lymphocytes 2.2 thou/uL (1.20-3.40); #Monocytes 0.6 thou/uL (0.11-0.59); #Neutrophils 3.3 thou/uL (1.40-6.50); %Basophils 1.5 % (0.0-1.0); %Eosinophils 6.8 % (0.0-10.0); %Monocytes 9.6 % (0.0-10.0); %Neutrophils 49.2 % (42.0-75.0); Hemoglobin 11.3 g/dL (14.0-18.0); Mean Corpuscular HGB CONC 32.9 g/dL (32.0-36.0); Mean Platelet Volume 6.6 fL (7.4-10.4); Platelet Count 366 thou/uL (130-400); RBC Distribution Width 14.2 % (11.5-14.5); Red Blood Cell (RBC) Count 4.34 mill/uL (4.70-6.10); White Blood Cell (WBC) Count 6.7 thou/uL (4.8-10.8)
[2018-11-18 09:41] LABS: ALT (SGPT) 26 U/L (8-55); AST (SGOT) 17 U/L (5-34); Albumin 2.7 g/dL (3.4-4.8); Alkaline Phosphatase 275 U/L (40-150); Anion Gap 11 mmol/L (10-20); BUN (Urea Nitrogen) 8 mg/dL (8.4-25.7); Bilirubin, Total 0.5 mg/dL (0.2-1.2); Calc. Creatinine Clearance 91 mL/min (70-130); Calcium 8.4 mg/dL (7.8-10.44); Carbon Dioxide 20 mmol/L (23-31); Chloride 110 mmol/L (98-107); Estimated GFR-MDRD Greater than 90; Globulin 3.3 g/dL (2.4-3.5); Glucose 93 mg/dL (83-110); Potassium 3.1 mmol/L (3.5-5.1); Sodium 138 mmol/L (136-145)
--- NOTE | 2018-11-18 15:14 | PDOC.PN ---
- Subjective Encounter Start Date: 11/18/18 Encounter Start Time: 12:00 Subjective: awake, no complaints -: no abd pain or nausea - Objective Resuscitation Status - Order Detail: 11/14/18 00:24 Resuscitation Status Routine Resuscitation Status: FULL: Full Resuscitation MAR Reviewed: Yes Vital Signs & Weight: Vital Signs (12 hours) Temp Pulse Resp BP Pulse Ox 11/18/18 08:00 97 11/18/18 05:28 97.7 F 61 16 170/84 H 97 Weight Admit Weight 188 lb 6 oz Weight 188 lb 6 oz I&O: 11/17/18 11/18/18 11/19/18 06:59 06:59 06:59 Intake Total 3630 1380 Output Total 2250 1850 Balance 1380 -470 Result Diagrams: 11/18/18 09:06 11/18/18 09:06 Phys Exam - Physical Examination HEENT: PERRLA, moist MMs Neck: no JVD, supple Respiratory: no wheezing, no rales Cardiovascular: RRR, no significant murmur Gastrointestinal: soft, non-tender, positive bowel sounds Musculoskeletal: no edema, pulses present Neurological: non-focal, moves all 4 limbs Dx/Plan (1) Septic arthritis of hip Code(s): M00.9 - PYOGENIC ARTHRITIS, UNSPECIFIED Status: Suspected Qualifiers: Laterality: left (2) Abnormal LFTs Code(s): R94.5 - ABNORMAL RESULTS OF LIVER FUNCTION STUDIES Status: Acute (3) Anxiety and depression Code(s): F41.8 - OTHER SPECIFIED ANXIETY DISORDERS Status: Chronic (4) Chronic diastolic heart failure Code(s): I50.32 - CHRONIC DIASTOLIC (CONGESTIVE) HEART FAILURE Status: Chronic Comment: ACC stage C - compensated (5) Chronic pain syndrome Code(s): G89.4 - CHRONIC PAIN SYNDROME Status: Chronic (6) DJD (degenerative joint disease) Code(s): M19.90 - UNSPECIFIED OSTEOARTHRITIS, UNSPECIFIED SITE Status: Chronic Qualifiers: Osteoarthritis location: unspecified site (7) H/O prostate cancer Code(s): Z85.46 - PERSONAL HISTORY OF MALIGNANT NEOPLASM OF PROSTATE Status: Chronic (8) Hypothyroidism Code(s): E03.9 - HYPOTHYROIDISM, UNSPECIFIED Status: Chronic Comment: Continue Levothyroxine 88mcg daily - Plan has enterococcus, coag -ve staph in blood cs, likely contaminant? -: await opinion -: is on vanc and zosyn -: lft's are normal except alk phos this am -: continue fentanyl tts, synthroid, neurontin, oxycodone * . Review of Systems - Medications/Allergies Allergies/Adverse Reactions: Allergies Allergy/AdvReac Type Severity Reaction Status Date / Time No Known Allergies Allergy Verified 04/12/17 10:53 Medications: Current Medications Acetaminophen (Tylenol) 650 mg PO Q4H PRN PRN Reason: Headache/Fever/Mild Pain (1-3) Last Admin: 11/14/18 14:26 Dose: 650 mg Alprazolam (Xanax) 0.5 mg PO HSPRN PRN PRN Reason: Anxiety/Insomnia Enoxaparin Sodium (Lovenox) 40 mg SC 0900 [facility] Last Admin: 11/18/18 08:45 Dose: 40 mg Fentanyl (Duragesic) 75 mcg TD Q72H [facility] Last Admin: 11/17/18 22:19 Dose: 75 mcg Gabapentin (Neurontin) 300 mg PO TID [facility] Last Admin: 11/18/18 14:28 Dose: 300 mg Piperacillin Sod/Tazobactam (Sod 4.5 gm/ Sodium Chloride) 100 mls @ 200 mls/hr IVPB Q8HR [facility] Last Admin: 11/18/18 14:28 Dose: 100 mls Vancomycin HCl 1.25 gm/ Sodium (Chloride) 250 mls @ 166.667 mls/hr IVPB 2300 [facility] Last Admin: 11/18/18 00:35 Dose: 250 mls Levothyroxine Sodium (Synthroid) 88 mcg PO 0600 [facility] Last Admin: 11/18/18 05:43 Dose: 88 mcg Miscellaneous Medication (Pharmacy To Dose) 1 each IVPB PRN PRN PRN Reason: SEPSIS Ondansetron HCl (Zofran Odt) 4 mg PO Q6H PRN PRN Reason: Nausea/Vomiting Oxycodone/Acetaminophen (Percocet 5/325) 1 tab PO Q8H PRN PRN Reason: Moderate to Severe Pain (4-10) Last Admin: 11/18/18 14:28 Dose: 1 tab
[2018-11-18] MEDS: Acetaminophen 325 MG TAB PO PRN (20:05)
[2018-11-19] MEDS: Levothyroxine Sodium 88 MCG TAB PO SCH (05:37)
[2018-11-19] MEDS: Piperacillin/Tazobactam 4.5 GM in Sodium Chloride 0.9% 100 ML IVPB SCH ×3 (05:38→21:05)
[2018-11-19] MEDS: oxyCODONE/Acetaminophen 5 mg/325 mg Tablet PO PRN ×4 (05:44→21:04)
[2018-11-19] MEDS: Enoxaparin Sodium 40 MG/0.4 ML SYRINGE SC SCH (08:46)
[2018-11-19] MEDS: Gabapentin 300 MG CAP PO SCH ×3 (08:46→21:04)
[2018-11-19 08:52] LABS: #Basophils 0.1 thou/uL (0.0-0.2); #Eosinphils 0.5 thou/uL (0.0-0.7); #Lymphocytes 2.6 thou/uL (1.20-3.40); #Monocytes 0.6 thou/uL (0.11-0.59); %Basophils 1.8 % (0.0-1.0); %Eosinophils 7.5 % (0.0-10.0); %Lymphocytes 37.9 % (21.0-51.0); %Monocytes 9.2 % (0.0-10.0); %Neutrophils 43.7 % (42.0-75.0); Hemoglobin 12.4 g/dL (14.0-18.0); Mean Corpuscular HGB CONC 32.5 g/dL (32.0-36.0); Mean Corpuscular Hemoglobin 25.9 pg (27.0-31.0); Mean Corpuscular Volume 79.7 fL (78.0-98.0); Mean Platelet Volume 6.6 fL (7.4-10.4); Platelet Count 412 thou/uL (130-400); RBC Distribution Width 14.6 % (11.5-14.5); Red Blood Cell (RBC) Count 4.78 mill/uL (4.70-6.10); White Blood Cell (WBC) Count 6.9 thou/uL (4.8-10.8)
[2018-11-19 09:13] LABS: ALT (SGPT) 24 U/L (8-55); AST (SGOT) 16 U/L (5-34); Alkaline Phosphatase 268 U/L (40-150); Anion Gap 12 mmol/L (10-20); BUN (Urea Nitrogen) 7 mg/dL (8.4-25.7); Bilirubin, Total 0.5 mg/dL (0.2-1.2); Calc. Creatinine Clearance 88 mL/min (70-130); Calcium 8.6 mg/dL (7.8-10.44); Carbon Dioxide 19 mmol/L (23-31); Chloride 110 mmol/L (98-107); Estimated GFR-MDRD Greater than 90; Globulin 3.5 g/dL (2.4-3.5); Glucose 112 mg/dL (83-110); Potassium 3.2 mmol/L (3.5-5.1); Protein, Total 6.5 g/dL (5.8-8.1); Sodium 138 mmol/L (136-145)
[2018-11-19] MEDS ORDERED: ISOVUE-370 76%-LOCM 1 ML ONE (09:33)
--- NOTE | 2018-11-19 13:42 | CT ---
FContrast-enhanced CT images of abdomen and pelvis. HISTORY: Abscess enterococcus bacteremia. Contrast-enhanced CT images of the abdomen and pelvis obtained after administration of IV contrast. O ral contrast was not given. Bilateral pleural effusions seen. There is a large sliding hiatal hernia. Areas of interstitial lung fibrotic changes seen. Coronary artery calcifications seen. There is intrahepatic biliary dilatation seen. There are 2 wedge-shaped area of hypodensity in the ri ght hepatic lobe (hepatic 5/ 6 segment and 7/8). Correlate with three-phase dynamic CT hepatic protoc ol to further evaluate the liver. Unfortunately MRI cannot be performed due to the patient's intracar diac pacing device. The common bile duct is dilated. There appears to be areas of soft tissue density in the distal commo n bile duct. This may represent debris or distal common bile duct mass including possible cholangioca rcinoma. There is also some gallbladder wall thickening and surrounding fluid. There is mild gallbladder wall enhancement. The spleen is unremarkable. The pancreas is unremarkable. Adrenal glands unremarkable. The kidneys are unremarkable except for a cortical cyst in the midpole o f the left kidney. Area of focal cortical thinning with adjacent small area of the parenchymal calcif ication seen in the upper pole of the right kidney. Brachial therapy seeds seen in the prostatic bed. A left hip joint destructive changes seen. A right hip arthroplasty is in place. The small bowel is unremarkable. Descending colonic diverticulosis is present. Multilevel lumbar degenerative changes seen. Abnormal thickening of the urinary bladder seen. Fluid and gas is seen within the bladder. Differential diagnosis includes gas-forming organism in/or recent catheterization of the urinary bladder. IMPRESSION: 1: Abnormal dilatation of the common bile duct with soft tissue thickening or debris in the distal co mmon bile duct. 2: Intrahepatic biliary dilatation. 3: Area of wedge-shaped densities in the right hepatic lobe. Differential diagnosis includes hepatic masses versus a wedge-shaped areas of vascular compromise from portal vein thrombosis versus hepatic parenchymal changes due to cholangitis.
--- NOTE | 2018-11-19 14:08 | PDOC.PN ---
- Subjective Encounter Start Date: 11/19/18 Encounter Start Time: 13:00 Subjective: no abd pain or nausea -: tolerating oral diet, has gen aches and pain -: wants his experimental chemo meds - Objective Resuscitation Status - Order Detail: 11/14/18 00:24 Resuscitation Status Routine Resuscitation Status: FULL: Full Resuscitation MAR Reviewed: Yes Vital Signs & Weight: Vital Signs (12 hours) Temp Pulse Resp BP Pulse Ox 11/19/18 12:10 97.9 F 62 18 148/81 H 97 11/19/18 08:00 98.2 F 67 18 135/77 97 11/19/18 04:44 98.8 F 76 16 146/69 H 90 L 11/19/18 04:41 98.4 F 60 16 160/90 H 97 Weight Admit Weight 188 lb 6 oz Weight 188 lb 6 oz I&O: 11/18/18 11/19/18 11/20/18 06:59 06:59 06:59 Intake Total 1380 1850 Output Total 1850 Balance -470 1850 Result Diagrams: 11/19/18 08:35 11/19/18 08:35 Phys Exam - Physical Examination HEENT: PERRLA, moist MMs Neck: no JVD, supple Respiratory: no wheezing, no rales Cardiovascular: RRR, no significant murmur Gastrointestinal: soft, no distention, positive bowel sounds Musculoskeletal: pulses present, edema present Neurological: non-focal, moves all 4 limbs Psychiatric: A&O x 3 Dx/Plan (1) Abnormal LFTs Code(s): R94.5 - ABNORMAL RESULTS OF LIVER FUNCTION STUDIES Status: Acute (2) Anxiety and depression Code(s): F41.8 - OTHER SPECIFIED ANXIETY DISORDERS Status: Chronic (3) Chronic diastolic heart failure Code(s): I50.32 - CHRONIC DIASTOLIC (CONGESTIVE) HEART FAILURE Status: Chronic Comment: ACC stage C - compensated (4) Chronic pain syndrome Code(s): G89.4 - CHRONIC PAIN SYNDROME Status: Chronic (5) DJD (degenerative joint disease) Code(s): M19.90 - UNSPECIFIED OSTEOARTHRITIS, UNSPECIFIED SITE Status: Chronic Qualifiers: Osteoarthritis location: unspecified site (6) H/O prostate cancer Code(s): Z85.46 - PERSONAL HISTORY OF MALIGNANT NEOPLASM OF PROSTATE Status: Chronic (7) Hypothyroidism Code(s): E03.9 - HYPOTHYROIDISM, UNSPECIFIED Status: Chronic Comment: Continue Levothyroxine 88mcg daily (8) Bacteremia Code(s): R78.81 - BACTEREMIA Status: Acute Comment: enterococcal (9) Acute cholangitis Code(s): K83.09 - OTHER CHOLANGITIS Status: Suspected - Plan CT abd results noted, d/w and -: is on vanc, zosyn -: continue fentanyl, neurontin, synthroid and oxycodone -: d/w son over phone and gave an update and possible procedures planned if an -: may continue his experimental chemo med for ?prostate ca * . Review of Systems - Medications/Allergies Allergies/Adverse Reactions: Allergies Allergy/AdvReac Type Severity Reaction Status Date / Time No Known Allergies Allergy Verified 04/12/17 10:53 Medications: Current Medications Acetaminophen (Tylenol) 650 mg PO Q4H PRN PRN Reason: Headache/Fever/Mild Pain (1-3) Last Admin: 11/18/18 20:05 Dose: 650 mg Alprazolam (Xanax) 0.5 mg PO HSPRN PRN PRN Reason: Anxiety/Insomnia Enoxaparin Sodium (Lovenox) 40 mg SC 0900 [facility] Last Admin: 11/19/18 08:46 Dose: 40 mg Fentanyl (Duragesic) 75 mcg TD Q72H [facility] Last Admin: 11/17/18 22:19 Dose: 75 mcg Gabapentin (Neurontin) 300 mg PO TID [facility] Last Admin: 11/19/18 08:46 Dose: 300 mg Piperacillin Sod/Tazobactam (Sod 4.5 gm/ Sodium Chloride) 100 mls @ 200 mls/hr IVPB Q8HR [facility] Last Admin: 11/19/18 13:40 Dose: 100 mls Vancomycin HCl 1.25 gm/ Sodium (Chloride) 250 mls @ 166.667 mls/hr IVPB 2300 [facility] Last Admin: 11/18/18 23:17 Dose: 250 mls Levothyroxine Sodium (Synthroid) 88 mcg PO 0600 [facility] Last Admin: 11/19/18 05:37 Dose: 88 mcg Miscellaneous Medication (Pharmacy To Dose) 1 each IVPB PRN PRN PRN Reason: SEPSIS Ondansetron HCl (Zofran Odt) 4 mg PO Q6H PRN PRN Reason: Nausea/Vomiting Oxycodone/Acetaminophen (Percocet 5/325) 1 tab PO Q8H PRN PRN Reason: Moderate to Severe Pain (4-10) Last Admin: 11/19/18 05:44 Dose: 1 tab Oxycodone/Acetaminophen (Percocet 5/325) 1 tab PO Q4H PRN PRN Reason: Moderate Pain (4-6) Last Admin: 11/19/18 12:30 Dose: 1 tab Enzalutamide (Xtandi () 40 Mg) 0 each PO DAILY [facility]
[2018-11-19] MEDS: ENZALUTAMIDE 40 MG PO SCH (15:36)
--- NOTE | 2018-11-19 21:36 | CON ---
DATE OF CONSULTATION: 11/19/2018 REASON FOR CONSULTATION: Abnormal ultrasound, CT, and liver function tests. HISTORY OF PRESENT ILLNESS: Mr. Herring is an 83-year-old male who was admitted to the hospital 5 days ago with a septic arthritis of the left hip. He has a long history of his left hip involving arthroplasty with subsequent removal and debridement of the area because of infection. On admission, he was noted to have elevation in his liver enzymes and alkaline phosphatase, but normal bilirubin. By report, he did have some right upper quadrant pain, which led to an abdominal ultrasound. This exam showed mild gallbladder wall prominence 3-4 mm with pericholecystic edema in addition to dilation of the bile duct to 1 cm with some intrahepatic ductal dilatation. Subsequent CT performed showed dilation of the common bile duct with suggestion of either soft tissue thickening or debris in the distal duct along the intrahepatic biliary dilatation. Also was a wedge-shaped hypodensity in the right hepatic lobe. His blood count did grow out Enterococcus species in one of the two culture. Currently, he is afebrile without any leukocytosis. He does still have some vague right upper quadrant pain. He does have some mild nausea, but no vomiting. The patient had been seen in our practice by Dr. Melgoza in the past. He is known to have chronic elevation of his alkaline phosphatase and chronic dilation of his biliary system. His previous CT scan and ultrasound within the last 5 years have repeatedly demonstrated dilation of his bile duct, at one point with a common bile duct measuring up to 14 mm. 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 With his prostate cancer and the fact that he was clinically doing well with stable LFT pattern without any cholestasis, ERCP was not performed. PAST MEDICAL HISTORY: Prostate cancer, thyroid cancer, hyperlipidemia, hypothyroidism, multiple arthroplasty involving his left hip with subsequent debridement in 08/2018, status post inguinal hernia repair/appendectomy/thyroidectomy. SOCIAL HISTORY: The patient has no active tobacco or alcohol usage. FAMILY HISTORY: Negative for any known GI problem, liver disease, or GI malignancy. ALLERGIES: NONE. CURRENT MEDICATIONS: Include, 1. Lovenox. 2. Enzalutamide. 3. Fentanyl patch. 4. Gabapentin. 5. Synthroid. 6. Zosyn. 7. Vancomycin. REVIEW OF SYSTEMS: A 10-point review of systems did not show any other pertinent positives or negatives. PHYSICAL EXAMINATION: VITAL SIGNS: Temperature is 97.9, blood pressure 148/81, and pulse is 62. GENERAL: He is alert, conversant, in no distress. HEENT: Shows anicteric sclerae. Oropharynx clear. NECK: Supple. CV: Shows normal S1, S2. Regular rate and rhythm. CHEST: Shows breath sounds. No adventitious sounds. ABDOMEN: Soft. No distention. No tympany. He does have tenderness in the right upper quadrant, but no guarding, tensing, or rebound. He has active bowel sounds. EXTREMITIES: Shows no edema. LABORATORY DATA: WBC 6.9, hemoglobin 12.4, platelet count of 412. Electrolytes within normal range. Creatinine 0.80, bilirubin 0.5. AST decreased from 84 to 16, ALT decreased from 87 to 24, alkaline phosphatase decreased from 475 to 268. Blood culture grew out enterobacter species in one of two culture. The other grew out coagulase-negative Staph, likely contaminant. ASSESSMENT: Right upper quadrant pain associated with initial abnormal liver function tests and ultrasound demonstrating a slightly thickened gallbladder wall with pericholecystic edema. Currently, he still has some tenderness on exam, but not severe. Wedge-shaped density on CT scan is ill-defined, but does not have any typical of a true abscess based on the current study. Unfortunately, he cannot obtain an MRI because of cardiac hardware. His biliary system dilation has been chronic and has been thoroughly worked up as an outpatient including endoscopic ultrasound. 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 RECOMMENDATIONS: 1. I think it is reasonable to proceed with cholecystectomy for possible cholecystitis and positive blood culture. 2. We will obtain CT with liver protocol to further evaluate the described abnormality in the right lobe of the liver if he fails to improve postoperatively. 3. I recommended an intraoperative cholangiogram at the time of the cholecystectomy to fully evaluate his distal common bile duct. Job ID: [id number]
[2018-11-19] MEDS: Vancomycin HCl 1.25 GM in Sodium Chloride 0.9% 250 ML 250 ML IVPB SCH (22:19)
--- NOTE | 2018-11-20 00:13 | CON ---
DATE OF CONSULTATION: 11/19/2018 REQUESTING PHYSICIAN: Dr. Hutton. HISTORY OF PRESENT ILLNESS: Mr. Herring is an 83-year-old man with a complicated medical history. This includes bilateral hip arthroplasties and recurrent left hip infections with ultimate removal of hardware. The patient was readmitted on 11/14/2018 with recurrent fever, left hip pain as well as abnormal liver function test. Left hip was aspirated and was negative for bacteria. A blood culture was obtained on admission and ultimately resulted with Enterobacter. The patient has been on broad-spectrum antibiotics since admission. Ultrasound which was obtained on 11/14/2018 was remarkable for gallbladder with mild wall thickening, presence of pericholecystic fluid and no gallstones. Of significance also is the presence of dilated common bile duct. The patient has been tolerating diet. He is having loose bowel movements. He is currently afebrile and the LFTs are normalizing. I have been asked to evaluate the patient for possible surgical intervention. At time of my evaluation, the patient denies any abdominal pain, nausea, or vomiting. PAST MEDICAL HISTORY: Significant for cancer of the prostate; thyroid cancer, which is currently in remission; recurrent septic hip arthritis; hyperlipidemia; chronic depression; and hypothyroidism. PAST SURGICAL HISTORY: Significant for bilateral total hip arthroplasties with multiple revisions and ultimately removal of hardware. Pertinent surgical history includes appendectomy, inguinal hernia repair, thyroidectomy, intra-ocular lens implant. SOCIAL HISTORY: The patient denies any cigarette smoking, ethanol, or illicit drug abuse. 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 FAMILY HISTORY: Noncontributory for this patient's age. REVIEW OF SYSTEMS: Ten-point review of systems essentially unremarkable except as stated in past medical history and chief complaint. PHYSICAL EXAMINATION: GENERAL: This reveals an 83-year-old normally developed man, who is otherwise coherent, interactive, and appears stated age. The patient is alert and oriented x3, appears to be in no acute distress at the time of my evaluation. VITAL SIGNS: Current vital signs include blood pressure 102/64, pulse is 74, respiratory rate is 16, temperature is 98 degrees Fahrenheit, oxygen saturation is 95% on room air. HEENT: Reveals normocephalic and atraumatic. The pupils are equal, round, reactive to light and accommodation. He has no sclerae icterus present. HEART: Reveals regular rate and rhythm. No murmurs or gallops auscultated. LUNGS: Clear to auscultation bilaterally. Breathing, regular and nonlabored. ABDOMEN: Soft, nontender, nondistended. Liver and spleen are nonpalpable below costal margin. NEUROLOGIC: Reveals no focal deficits present. LABORATORY FINDINGS: Today include a CBC with 6900 white blood cells, hemoglobin and hematocrit of 12.4 and 38.1 respectively. The platelet count is 412,000. This is marked improvement from when compared to a CBC on 11/14/2018 [place] [address], hemoglobin and hematocrit at that time was 11.5 and 35.3, and platelet count was 393,000. Metabolic profile today includes sodium 138, potassium is 3.2, chloride is 110, bicarb 19, BUN 7, creatinine is 0.80, glucose 112, total bilirubin today 0.5, AST and ALT normal at 16 and 24 respectively. Alkaline phosphatase is elevated at 268. Note that this contrast to the LFTs on 11/14/2018 with a total bilirubin of 0.6, AST and ALT 43 and 59 respectively, and alkaline phosphatase then was 416. I have personally reviewed the abdominal ultrasound, which was obtained on 11/14/2018 is remarkable for slightly dilated gallbladder with mild gallbladder wall thickening and pericholecystic fluid present. There is small amount of biliary sludge, but no gallstones present. Bile duct is dilated at 1.02 cm in diameter. I have also reviewed the CT scan of the abdomen and pelvis which was obtained today. There again confirms gallbladder which is devoid of stones. Dilated common bile duct is once again demonstrated. There is an abnormal wedge-shaped density in the right lobe of the liver. IMPRESSION: Acute acalculous cholecystitis, resolving, although the patient continues to have low-grade fever. RECOMMENDATION: Given this patient's significant comorbidities, I recommend percutaneous cholecystostomy tube placement with culture of aspirated bile to compare this with the blood cultures. There is no acute surgical indication for this patient at this time. General Surgery will continue to follow along with you and make further recommendations as necessary. Thank you again, Dr. Hutton for allowing me the opportunity to participate in the care of this patient. Job ID: [id number]
[2018-11-20] MEDS: oxyCODONE/Acetaminophen 5 mg/325 mg Tablet PO PRN ×6 (00:55→22:43)
[2018-11-20] MEDS: Piperacillin/Tazobactam 4.5 GM in Sodium Chloride 0.9% 100 ML IVPB SCH (05:19)
[2018-11-20] MEDS: Levothyroxine Sodium 88 MCG TAB PO SCH (05:20)
[2018-11-20] MEDS: Gabapentin 300 MG CAP PO SCH ×3 (08:56→21:29)
[2018-11-20] MEDS: Enoxaparin Sodium 40 MG/0.4 ML SYRINGE SC SCH (08:56)
[2018-11-20] MEDS: ENZALUTAMIDE 40 MG PO SCH (09:03)
--- NOTE | 2018-11-20 12:35 | PRG ---
DATE OF SERVICE: 11/20/2018 SUBJECTIVE: An 83-year-old man with complicated multiple comorbidities. I saw him yesterday in evaluation of possible biliary disease. The patient had no abdominal pain. Previous workup had indicated a distended gallbladder with pericholecystic fluid and gallbladder wall thickening. The common bile duct has chronically been enlarged, requiring previous endoscopic ultrasound and dilation of stenotic sphincter. At this juncture, his LFTs are normal except for elevated alkaline phosphatase, which may be related to his prostatic carcinoma. Due to recent Enterobacter bacteremia, I had recommended percutaneous cholecystostomy tube placement. Interventional Radiology indicates this is not amenable to percutaneous drainage procedure as the gallbladder itself appears to be contracted. He remains afebrile with a blood pressure this morning which is noted at 164/88, pulse 60, respiratory rate is 18, temperature 97.6 degrees Fahrenheit, oxygen saturation 95% on room air. Abdomen remains soft, nontender, nondistended. IMPRESSION: Acute acalculous cholecystitis, resolving. PLAN: Obtain a HIDA scan. If normal, no operative intervention will be undertaken. However, if the HIDA scan indicates a nonvisualized gallbladder to suggest cystic duct wall obstruction, we will give consideration to laparoscopic cholecystectomy at that time. Above findings and plan discussed with the patient who indicates understanding of information given. I have answered his questions. Job ID: [id number]
--- NOTE | 2018-11-20 12:51 | PDOC.PN ---
- Subjective Encounter Start Date: 11/20/18 Encounter Start Time: 07:00 Subjective: no nausea or dyscomfort now -: says he slept well, not in distress -: is npo - Objective Resuscitation Status - Order Detail: 11/14/18 00:24 Resuscitation Status Routine Resuscitation Status: FULL: Full Resuscitation MAR Reviewed: Yes Vital Signs & Weight: Vital Signs (12 hours) Temp Pulse Resp BP Pulse Ox 11/20/18 12:35 149/79 H 11/20/18 11:27 97.1 F L 60 16 173/79 H 97 11/20/18 07:56 97.6 F 60 18 164/88 H 95 11/20/18 04:00 98 F 64 16 158/85 H 94 L Weight Admit Weight 188 lb 6 oz Weight 188 lb 6 oz I&O: 11/19/18 11/20/18 11/21/18 06:59 06:59 06:59 Intake Total 1850 1100 Balance 1850 1100 Result Diagrams: 11/19/18 08:35 11/19/18 08:35 Phys Exam - Physical Examination HEENT: PERRLA, moist MMs Neck: no JVD, supple Respiratory: no wheezing, no rales Cardiovascular: RRR, no significant murmur Gastrointestinal: soft, no distention, positive bowel sounds Musculoskeletal: pulses present, edema present left leg is shortened, has edema Neurological: non-focal, moves all 4 limbs Psychiatric: A&O x 3 Dx/Plan (1) Abnormal LFTs Code(s): R94.5 - ABNORMAL RESULTS OF LIVER FUNCTION STUDIES Status: Acute Comment: ?cholangitis with enterococcal bacteremia (2) Anxiety and depression Code(s): F41.8 - OTHER SPECIFIED ANXIETY DISORDERS Status: Chronic (3) Chronic diastolic heart failure Code(s): I50.32 - CHRONIC DIASTOLIC (CONGESTIVE) HEART FAILURE Status: Chronic Comment: ACC stage C - compensated (4) Chronic pain syndrome Code(s): G89.4 - CHRONIC PAIN SYNDROME Status: Chronic (5) DJD (degenerative joint disease) Code(s): M19.90 - UNSPECIFIED OSTEOARTHRITIS, UNSPECIFIED SITE Status: Chronic Qualifiers: Osteoarthritis location: unspecified site (6) H/O prostate cancer Code(s): Z85.46 - PERSONAL HISTORY OF MALIGNANT NEOPLASM OF PROSTATE Status: Chronic (7) Hypothyroidism Code(s): E03.9 - HYPOTHYROIDISM, UNSPECIFIED Status: Chronic Comment: Continue Levothyroxine 88mcg daily (8) Bacteremia Code(s): R78.81 - BACTEREMIA Status: Acute Comment: enterococcal (9) Acute cholangitis Code(s): K83.09 - OTHER CHOLANGITIS Status: Suspected (10) Chronic anemia Code(s): D64.9 - ANEMIA, UNSPECIFIED Status: Chronic (11) Moderate protein malnutrition Code(s): E44.0 - MODERATE PROTEIN-CALORIE MALNUTRITION Status: Chronic - Plan for HIDA scan, has contracted gallbladder to place percut cholecystostomy T -: d/w and Mary -: tried to call son to give update, cant reach him -: is on levaquin based on sensitivities -: continue fentanyl tts, oxycodone, neurontin, synthroid * . Review of Systems - Medications/Allergies Allergies/Adverse Reactions: Allergies Allergy/AdvReac Type Severity Reaction Status Date / Time No Known Allergies Allergy Verified 04/12/17 10:53 Medications: Current Medications Acetaminophen (Tylenol) 650 mg PO Q4H PRN PRN Reason: Headache/Fever/Mild Pain (1-3) Last Admin: 11/18/18 20:05 Dose: 650 mg Alprazolam (Xanax) 0.5 mg PO HSPRN PRN PRN Reason: Anxiety/Insomnia Enoxaparin Sodium (Lovenox) 40 mg SC 0900 [facility] Last Admin: 11/20/18 08:56 Dose: Not Given Fentanyl (Duragesic) 75 mcg TD Q72H [facility] Last Admin: 11/17/18 22:19 Dose: 75 mcg Gabapentin (Neurontin) 300 mg PO TID [facility] Last Admin: 11/20/18 08:56 Dose: 300 mg Levofloxacin (Levaquin) 750 mg PER TUBE 1200 [facility] Levothyroxine Sodium (Synthroid) 88 mcg PO 0600 [facility] Last Admin: 11/20/18 05:20 Dose: Not Given Ondansetron HCl (Zofran Odt) 4 mg PO Q6H PRN PRN Reason: Nausea/Vomiting Oxycodone/Acetaminophen (Percocet 5/325) 1 tab PO Q8H PRN PRN Reason: Moderate to Severe Pain (4-10) Last Admin: 11/19/18 05:44 Dose: 1 tab Oxycodone/Acetaminophen (Percocet 5/325) 1 tab PO Q4H PRN PRN Reason: Moderate Pain (4-6) Last Admin: 11/20/18 12:42 Dose: 1 tab Enzalutamide (Xtandi () 40 Mg) 160 each PO DAILY [facility] Last Admin: 11/20/18 09:03 Dose: 160 each
--- NOTE | 2018-11-20 19:03 | NM ---
FHepatobiliary scan: 11/20/2018 COMPARISON: None HISTORY: Evaluate for acalculous cholecystitis TECHNIQUE: Anterior planar imaging is obtained over 60 minutes following the intravenous administrati on of technetium 99M labeled mebrofenin (4.9 mCi). Upon visualization of the gallbladder, 8 ounces of Ensure was given orally to calculate the gallbladder ejection fraction. FINDINGS: Normal radiotracer activity seen within the liver on post injection imaging. Gallbladder is seen by approximately 20 minutes. Small bowel activity is seen by 25 minutes. Gallbladder ejection f raction is abnormally low, approximately 15%, which can be seen on the basis of biliary dyskinesia/ch ronic cholecystitis. IMPRESSION: Scintigraphic evidence of cystic duct patency. Gallbladder ejection fraction is low.
[2018-11-20 22:38] LABS: Vancomycin, Trough 18.8 ug/mL
[2018-11-20] MEDS: fentaNYL 75 mcg/hour Patch TD SCH (22:41)
[2018-11-21] MEDS: ALPRAZolam 0.5 MG TAB PO PRN (00:02)
[2018-11-21] MEDS: oxyCODONE/Acetaminophen 5 mg/325 mg Tablet PO PRN ×2 (02:37→11:54)
[2018-11-21] MEDS: Levothyroxine Sodium 88 MCG TAB PO SCH (06:28)
[2018-11-21 06:39] LABS: #Basophils 0.1 thou/uL (0.0-0.2); #Eosinphils 0.5 thou/uL (0.0-0.7); #Lymphocytes 2.6 thou/uL (1.20-3.40); #Monocytes 0.6 thou/uL (0.11-0.59); #Neutrophils 3.9 thou/uL (1.40-6.50); %Basophils 0.9 % (0.0-1.0); %Eosinophils 5.9 % (0.0-10.0); %Lymphocytes 33.9 % (21.0-51.0); %Monocytes 8.3 % (0.0-10.0); Hemoglobin 12.3 g/dL (14.0-18.0); Mean Corpuscular HGB CONC 32.2 g/dL (32.0-36.0); Mean Corpuscular Hemoglobin 25.9 pg (27.0-31.0); Mean Corpuscular Volume 80.6 fL (78.0-98.0); Mean Platelet Volume 6.6 fL (7.4-10.4); Platelet Count 437 thou/uL (130-400); RBC Distribution Width 15.2 % (11.5-14.5); Red Blood Cell (RBC) Count 4.76 mill/uL (4.70-6.10); White Blood Cell (WBC) Count 7.7 thou/uL (4.8-10.8)
[2018-11-21 07:00] LABS: ALT (SGPT) 18 U/L (8-55); AST (SGOT) 15 U/L (5-34); Albumin 3.1 g/dL (3.4-4.8); Alkaline Phosphatase 233 U/L (40-150); Anion Gap 10 mmol/L (10-20); BUN (Urea Nitrogen) 7 mg/dL (8.4-25.7); Bilirubin, Total 0.4 mg/dL (0.2-1.2); Calc. Creatinine Clearance 90 mL/min (70-130); Calcium 8.7 mg/dL (7.8-10.44); Carbon Dioxide 24 mmol/L (23-31); Chloride 107 mmol/L (98-107); Estimated GFR-MDRD Greater than 90; Gamma GT (GGT) 148 U/L (12-64); Globulin 3.6 g/dL (2.4-3.5); Glucose 69 mg/dL (83-110); Protein, Total 6.7 g/dL (5.8-8.1); Sodium 138 mmol/L (136-145)
[2018-11-21 07:06] LABS: Potassium 2.8 mmol/L (3.5-5.1)
--- NOTE | 2018-11-21 08:27 | PRG ---
DATE OF SERVICE: 11/20/2018 SUBJECTIVE: Mr. Herring just went for a HIDA scan. The results are pending. He states he does not have much appetite. He has a little bit of right upper quadrant tenderness, but not like he had before. He also has some suprapubic discomfort. He has had no further fevers. He is on antibiotics. MEDICATIONS: 1. Tylenol. 2. Xanax. 3. Lovenox. 4. Duragesic patch. 5. Neurontin. 6. Levaquin. 7. Synthroid. 8. Zofran. 9. Percocet. 10. Xtandi. OBJECTIVE: GENERAL: The patient is resting comfortably in bed. He is alert and oriented to person, place, time. Slightly warm. He is not diaphoretic. VITAL SIGNS: Temperature 98, pulse 66, blood pressure 149/76. LUNGS: Clear. HEART: Regular rate and rhythm. SKIN: Dry. ABDOMEN: He has some very mild tenderness in right upper quadrant on palpating. He denies pain in left lower quadrant. He also complains of little bit of suprapubic discomfort. EXTREMITIES: No edema. LABORATORY STUDIES: Today, none. ASSESSMENT: 1. Cholestatic appearing liver function test; this has been noted in the past, although it was too extreme at this admission, so it is unclear if it is related to his bone issue with possible infection of the right hip or possibly biliary in origin. He does have some abnormalities in biliary tree and liver, which we discussed below. Would get a GGT to differentiate between the two with tomorrow's labs. 2. Bacteremia with both methicillin-resistant Staphylococcus aureus and Enterococcus. Concern is Enterococcus could come from the biliary tree. 3. Imaging of the belly shows couple things to rule out of the liver and biliary tree. One, he has had some wedge-shaped abnormalities out in the periphery of the liver. There is no overt portal vein thrombosis or clot in the liver. This could be septic emboli, could be a slight thrombosis of portal vasculature. It could be infection resulting in a differential blood flow in the liver and wedged area of the hepatic portal vein, could be tumor. Depending on lab results, we will plan for surgery tomorrow based on the HIDA scan he had today. If no plans for surgery or cholecystostomy tube, we will get a CT 3-phase tomorrow to further delineate these lesions. 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 He never had any signs of infection at that time, so we did not embark on endoscopic retrograde cholangiopancreatography, but at this point in time, we may need to do that as far as the questionable debris in the distal duct. We thought he was going to go to surgery today, an IOC may clarify that, but he did not and depending on again the results of the HIDA scan, he may need an endoscopic retrograde cholangiopancreatography. With a question of whether or not he could have cholangiocarcinoma, we could get a CA-19-9, but if there is infection of the biliary tree, this will be mildly elevated now; if the level is in the thousands, then that may be more definitive in a diagnosis and we will consider that as well. 4. Degenerative joint disease with possible infection in the right hip. 5. History of prostate cancer. PLAN: 1. We will start him on a liquid diet today, make him n.p.o. after midnight if he is going to surgery. 2. We will also investigate bladder scan for suprapubic discomfort. 3. We will check LFTs, CA-19-9, and GGT tomorrow. Depending on the findings of the HIDA scan that was done this evening, make further disposition and recommendations. At this time, he does not appear septic or with any findings of acute cholangitis. Job ID: [id number]
[2018-11-21] MEDS ORDERED: Potassium Chloride 10 MEQ in Premix Bag 1 BAG IVPB SCH ×2 (09:00)
[2018-11-21] MEDS: Sodium Chloride 0.9% 1,000 ML IV SCH (09:49)
[2018-11-21] MEDS ORDERED: PROPOFOL 200 MG/20 ML VIAL ONE (11:25)
[2018-11-21] MEDS ORDERED: Rocuronium Bromide 10 MG/ML (10ML VIAL) ONE (11:25)
[2018-11-21] MEDS ORDERED: Ondansetron PF 4 MG/2 ML Vial ONE (11:25)
[2018-11-21] MEDS ORDERED: Dexamethasone 20 MG/5 ML VIAL ONE (11:25)
[2018-11-21] MEDS ORDERED: Metoprolol Tartrate 5 MG/5 ML VIAL ONE (11:25)
[2018-11-21] MEDS ORDERED: Glycopyrrolate 0.2 MG/ML 5 ML SYRINGE ONE (11:25)
[2018-11-21] MEDS: Gabapentin 300 MG CAP PO SCH ×3 (11:55→21:09)
--- NOTE | 2018-11-21 13:45 | PRG ---
DATE OF SERVICE: 11/21/2018 SUBJECTIVE: The patient is about to be taken to the OR by Dr. Mcgrath. No any unexpected overnight events. OBJECTIVE: VITAL SIGNS: Blood pressure is 168/79, pulse is 61, temperature is 97.7, respiratory rate is 12, and O2 saturation 96% on room air. HEENT: His conjunctivae are palish. Pupils are responding to light properly. Oral mucosa is moist. NECK: Supple. LUNGS: Clear. HEART: S1 and S2 are normal. No S3. No S4. ABDOMEN: Soft. Tender in the right epigastric area, mild. No guarding. No masses. EXTREMITIES: No clubbing, cyanosis, or edema. NEUROLOGIC: He follows my commands. He moves his all four extremities. LABORATORY DATA: Labs showed normal white count, hemoglobin of 12.3, hematocrit 38.4, platelet count is 437. Sodium of 138, potassium 2.8, chloride 107, CO2 of 24, BUN 7, creatinine 0.78, glucose 69, gamma glutamyl transpeptidase 148, alkaline phosphatase 233, albumin 3.1, globulin 3.6. Vancomycin trough 18.8. Microbiology, no new findings. Scan showed scintigraphic evidence of cystic duct patency and gallbladder ejection fraction is low at approximately 15%, suggestive of some biliary dyskinesia/chronic cholecystitis. IMPRESSION: 1. Abdominal pain, with suggestive HIDA scan of probably biliary dyskinesia, chronic cholecystitis. The patient is taken to the operating room by Dr. Mcgrath. 2. Enterococcal bacteremia, and hypokalemia, to be supplemented. 3. Hypothyroidism. 4. Acute cholangitis. 5. Chronic anemia. 6. Chronic pain syndrome. 7. Anxiety and depression. 8. Degenerative joint disease. 9. History of prostate cancer. 10. 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 He will require Pen-Vee K for suppressive therapy for few months. Continue his levofloxacin and deep venous thrombosis prophylaxis. Job ID: [id number]
[2018-11-21] MEDS ORDERED: Iothalamate Meglumine 60% 50 ML VIAL FS ONE (15:09)
[2018-11-21] MEDS ORDERED: Bupivacaine/Epinephrine 0.25% 30 ML VIAL ONE (15:09)
--- NOTE | 2018-11-21 15:57 | PRG ---
DATE OF SERVICE: 11/21/2018 SUBJECTIVE: Mr. Zaldivar is waiting to get his cholecystectomy. I talked with his surgeon. They are going to plan on doing an IOC. If there is an obvious liver lesion, will biopsy that. However, HIDA scan came back with extremely low ejection fraction. The patient is doing well. He states he still has not much appetite, little bit of right upper quadrant tenderness. OBJECTIVE: VITAL SIGNS: Temperature 97.7, pulse 61, and blood pressure 168/79. ABDOMEN: Soft and nontender. LUNGS: Clear. LABORATORY DATA: White count 7.7, hemoglobin 12.3, and platelet count 437. Potassium was 2.8 up to 3.0 after replacement. GGT is 148, alkaline phosphatase is down to 233. AST and ALT are normal. ASSESSMENT: 1. Abnormal imaging of the biliary tree with dilated possible filling defect in the distal duct and inflammatory change in the gallbladder. He has had a HIDA scan with marginal ejection fraction about 15%. Small bowel activity is seen, which would indicate no blockage of the biliary tree. With regard to the fact that he did have positive cultures for enterococcus in his blood, it was felt to be from a GI source and his GI source identified. He is going for lap oziel. 2. Abnormal areas of enhancement of the liver. This could be related to blood flow abnormalities from portal venous thrombosis of the portal vein, although none is seen on the imaging studies. It could be from tumor or could be from infection. CA-19-9 is pending. 3. Abnormalities to ampulla and distal common bile duct. In the past, he has had elevated alkaline phosphatase levels and had an EUS consistent with spasm/stenosis, but no tumor. PLAN: We will await the findings of surgery. If needed, we can consider an ERCP later. Dr. Carter will follow along during the hospitalization. Job ID: [id number]
[2018-11-21] MEDS ORDERED: Fentanyl 100 MCG/2 ML VIAL ONE ×2 (16:27→18:45)
[2018-11-21] MEDS ORDERED: Levofloxacin 500 mg/D5W 100 ml Premix Bag ONE (16:58)
--- NOTE | 2018-11-21 17:55 | RAD ---
FINTRAOPERATIVE CHOLANGIOGRAM: CLINICAL HISTORY: Acalculous cholecystitis, abdominal pain. FINDINGS: Intraoperative fluoroscopic views are performed which reveal contrast opacification of common duct as well as a partially contracted cystic duct. There is contrast seen within the adjacent duodenum. No obvious focal filling defect of the image, contrast opacified biliary ductal system. IMPRESSION: Intraoperative cholangiogram revealing contrast desiccation a partially imaged biliary ductal system as well as opacification of adjacent small bowel. Correlate with intraoperative findings. Transcribed Date/Time: 11/22/2018 7:53 AM
[2018-11-21] MEDS ORDERED: Promethazine HCl 25 MG/ML VIAL IM PRN (18:27)
[2018-11-21] MEDS ORDERED: Promethazine HCl 25 MG/ML VIAL SLOW IVP PRN (18:27)
[2018-11-21] MEDS ORDERED: Ondansetron HCl/PF 4 MG/2 ML Vial IVP PRN (18:27)
--- NOTE | 2018-11-21 19:00 | PRG ---
DATE OF SERVICE: 11/21/2018 SUBJECTIVE: This is an 83-year-old male, hospital day #8, whom our team was seen in consult for cholecystitis. The patient received HIDA scan yesterday, which showed decreased EF of the gallbladder. The patient was seen and evaluated with Dr. Mcgrath this morning. Upon our evaluation, he had a chief complaint of right upper quadrant pain. He has been n.p.o. since midnight. OBJECTIVE: VITAL SIGNS: Temperature 98.3, pulse 62, respirations 14, O2 saturation 97% on room air, blood pressure 181/82. GENERAL: Elderly appearing male, in no acute distress, resting in bed. PULMONARY: Normal work of breathing. Symmetric rise. CARDIOVASCULAR: Regular rate and rhythm. GI: Tender to palpation on right upper quadrant with deep and superficial palpation. Bowel sounds are positive. Abdomen is soft. There is no guarding or rigidity. MUSCULOSKELETAL: Moves all extremities x4. NEURO: No focal deficit is noted. LABORATORY FINDINGS: WBC 7.7, hemoglobin 12.3, hematocrit 38.4, platelet count 437. Sodium 138, potassium 2.8, chloride 107, carbon dioxide 24, BUN 7, creatinine 0.78, glucose 69. GGT 148, AST 15, ALT 18, alkaline phosphatase 233. ASSESSMENT: 1. [id number]-[id number] cholecystitis. 2. Hypokalemia. 3. Hypomagnesemia. 4. Prolonged hospitalization secondary to sepsis. 5. Enterococcal bacteremia. 6. Infected left hip hardware. PLAN: The patient has been seen and evaluated by Dr. Mcgrath, who recommends cholecystectomy at this time, given the patient's persistent pain and abnormal HIDA scan. Replete abnormal electrolytes. Plan was discussed with the patient at bedside and all questions were answered at the time of this dictation. Job ID: [id number] MTDD
[2018-11-21] MEDS: Enoxaparin Sodium 40 MG/0.4 ML SYRINGE SC SCH (19:52)
[2018-11-21] MEDS: ENZALUTAMIDE 40 MG PO SCH (19:53)
[2018-11-22] MEDS: oxyCODONE/Acetaminophen 5 mg/325 mg Tablet PO PRN ×6 (00:29→22:59)
[2018-11-22] MEDS: Sodium Chloride 0.9% 1,000 ML IV SCH ×3 (01:17→20:58)
[2018-11-22 04:54] LABS: Anion Gap 13 mmol/L (10-20); BUN (Urea Nitrogen) 6 mg/dL (8.4-25.7); Calc. Creatinine Clearance 97 mL/min (70-130); Calcium 8.5 mg/dL (7.8-10.44); Carbon Dioxide 21 mmol/L (23-31); Chloride 107 mmol/L (98-107); Estimated GFR-MDRD Greater than 90; Glucose 85 mg/dL (83-110); Magnesium 2.9 mg/dL (1.6-2.6); Potassium 3.6 mmol/L (3.5-5.1); Sodium 137 mmol/L (136-145)
[2018-11-22] MEDS: Levothyroxine Sodium 88 MCG TAB PO SCH (06:17)
[2018-11-22] MEDS: Enoxaparin Sodium 40 MG/0.4 ML SYRINGE SC SCH (08:09)
[2018-11-22] MEDS: Gabapentin 300 MG CAP PO SCH ×3 (08:09→20:58)
[2018-11-22] MEDS: ENZALUTAMIDE 40 MG PO SCH (08:09)
--- NOTE | 2018-11-22 09:55 | PDOC.OP ---
Operative Note - Operative Note Operative Note: DATE OF PROCEDURE: 11/21/2018 PROCEDURES: Laparoscopic cholecystectomy with intraoperative cholangiogram and liver biopsy. SURGEON: Ana Mcgrath M.D. PREOPERATIVE DIAGNOSIS: Chronic cholecystitis and distal common bile duct stenosis, with wedge-shaped nonenhancing abnormality in the right lateral liver POSTOPERATIVE DIAGNOSIS: Chronic cholecystitis and distal common bile duct stenosis, with area in the right lateral liver most consistent with scar FINDINGS: White walled contracted gallbladder with omental adhesions and dilated cystic duct. Intraoperative cholangiogram showed very dilated common bile duct to the distal common bile duct with no flow into the duodenum initially but with a slow trickle of flow after administration of glucagon. No meniscus sign or intrinsic mass seen but distal common bile duct is extremely narrow. Adhesions between the right lateral liver and the diaphragm consistent with old injury or inflammation. Whitish fibrotic appearing area in the right lateral liver suspicious for scarring, possibly due to old trauma. HISTORY: Patient with Enterobacter bacteremia and persistent right upper quadrant pain and tenderness. Very abnormal looking gallbladder on ultrasound and CT although HIDA did show filling of the gallbladder. His ejection fraction was very low and the patient decided to proceed with laparoscopic cholecystectomy for symptomatic relief and prevention of future episodes. Intraoperative cholangiogram was also recommended due to chronically dilated common bile duct with endoscopic ultrasound in the past normal. In addition, the patient had an abnormal wedge-shaped nonenhancing abnormality in the right lateral liver, the recommendation was made to examine that area intraoperatively and biopsy it if it appeared abnormal. PROCEDURE: After informed consent was obtained and appropriate preoperative antibiotics were administered, the patient was taken to the operating room and placed in the supine position and general endotracheal anesthesia was administered. The stomach was decompressed with an OG tube and the abdomen was prepped and draped in standard sterile fashion. Local anesthesia was infused to the skin and subcutaneous tissues at the umbilical level. A transverse skin incision was made. The fascia was elevated and a Veress needle was placed into the abdominal cavity without difficulty. Opening pressure was less than 5 and carbon dioxide gas easily insufflated to pressure rapidly isaac to 15 suggesting insufflation into the preperitoneal space. A second attempt at the same result so the decision was made to use a Anglin approach to enter the abdomen. The umbilical incision was extended and dissection carried down to the fascia which was incised. Stay sutures were placed and the peritoneum grasped and drawn up into the incision and incised under direct vision. The trocar was advanced into the abdominal cavity and carbon dioxide gas insufflated to an intra-abdominal pressure of 15 which the patient tolerated well. The abdominal cavity was carefully examined. There was no evidence of Veress needle or of trocar injury , although there was gas insufflated into the preperitoneal space. Local anesthesia was infused to the skin and subcutaneous tissues at the epigastric, right upper quadrant, and right lateral abdominal sites and trocars were placed under direct vision of the laparoscope. The fundus of the gallbladder was grasped and retracted superiorly. This was noted to be white walled and thickened, with omental adhesions which were taken down through the avascular plane. The infundibulum was grasped and retracted laterally. The serosa was stripped inferiorly at the level of the neck of the gallbladder exposing the cystic duct and artery which were traced clearly to their insertion in the gallbladder. The cystic artery was obscuring the cystic duct so it was clipped and divided following which the cystic duct was dissected free circumferentially and clipped at the level of the neck of the gallbladder. The cystic duct was noted to be quite dilated but was clearly inserting directly into the gallbladder, and distant from the area of the portal triad which was visible medially. An incision was made in the cystic duct inferior to the clip and the cystic duct was palpated with no stones palpable. Clear bile was seen to flow from the cystic duct incision. A cholangiogram catheter was introduced and placed into the cystic duct and secured with a clip. A cholangiogram was obtained which showed an adequate length of cystic duct. There was normal filling of the common bile duct which was quite dilated and did not show flow of contrast into the duodenum. There was normal retrograde flow into the common hepatic duct beyond the level of the bifurcation without filling defects. Glucagon was administered and allowed to circulate for 3 minutes following which another cholangiogram was obtained. This did show a slow trickle of flow into the duodenum without any intrinsic filling defects or meniscus sign. The distal common bile duct appeared to be very narrow. The cholangiogram catheter was removed and the cystic duct clipped below the incision in the cystic duct. The cystic duct was divided between these clips and the previously placed clip and an Endoloop placed inferior to the clip on the common bile duct stump due to the enlarged size of the cystic duct. The gallbladder was then dissected free of the gallbladder bed using hook electrocautery. Prior to complete removal of the gallbladder from the gallbladder bed, the area of the cystic duct and artery stumps was examined. The clips and Endoloop were in good position completely across these structures and there was no bleeding and no leakage of bile. The gallbladder was then placed into an EndoCatch bag and drawn out through the epigastric incision. The epigastric trocar was replaced and the operative site easily irrigated to clear. There was no significant bleeding or spillage of bile. Attention was then turned to the right lateral liver. The patient was noted to have extensive adhesions between the liver and the diaphragm at this level suggestive of old inflammation or injury. The underlying liver appeared whitish and firm, most consistent with scar. A wedge biopsy was obtained with laparoscopic scissors and the biopsy site cauterized. The abdomen was irrigated and hemostasis at the biopsy and laparoscopic cholecystectomy site was verified. The epigastric trocar was removed and the fascia closed under direct laparoscopic vision with a 0 Vicryl suture on a GraNee needle in a [id number] manner with excellent technical result. The right upper quadrant and right lateral abdominal trocars were removed and hemostasis verified. Carbon dioxide gas was allowed to desufflate through the umbilical trocar which was then removed. The umbilical fascia was closed with the previously placed stay sutures with excellent technical result.. The skin incisions were closed with 4-0 subcuticular Monocryl sutures and Dermabond dressings were placed. The patient was extubated and taken to the recovery room in good condition. There were no complications. ESTIMATED BLOOD LOSS: Minimal. SPECIMEN : Gallbladder and contents.
--- NOTE | 2018-11-22 13:09 | PRG ---
DATE OF SERVICE: 11/22/2018 SUBJECTIVE: The patient is seen and examined at the bedside. He is asking me a question whether it would be beneficial for him to keep the Guerra catheter in place since he does not control his urine much anymore. OBJECTIVE: VITAL SIGNS: Blood pressure is 129/80, pulse is 94, temperature is 97.6, respirations 20, O2 saturation is 97% on room air. GENERAL: His appetite is fair. HEENT: His eyes are PERRLA. Sclerae are nonicteric. Oral mucosa is moist. NECK: Supple. LUNGS: Clear. HEART: S1 and S2 normal. No S3. No S4. ABDOMEN: Three points of entry for laparoscopic cholecystectomy are visible. They look good. Abdomen is slightly tender to palpation. No guarding. No masses. Bowel sounds are present. EXTREMITIES: No clubbing, cyanosis, or edema. NEUROLOGIC: He follows my commands. He has Guerra catheter in place. LABORATORY DATA: Showed sodium of 137, potassium 3.6, chloride 107, CO2 of 21, BUN 6, creatinine 0.72. Magnesium 2.9. Microbiology, no new findings. IMPRESSION: 1. Chronic cholecystitis and distal common bile duct stenosis with wedge-shaped nonenhancing abnormality in the right lateral liver, status post laparoscopic cholecystectomy with intraoperative cholangiogram and liver biopsy. Postoperatively, the area in the right lateral liver was identified as most consistent with scar. 2. Enterococcal bacteremia. 3. Hypokalemia, supplemented. 4. Hypothyroidism. 5. Chronic anemia. 6. Acute cholangitis. 7. Anxiety and depression. 8. Degenerative joint disease. 9. History of prostate cancer. 10. Urinary incontinence. 11. 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 The patient will require Pen-Vee K for suppressive therapy for few months. We will continue his levofloxacin and deep vein thrombosis prophylaxis. Job ID: [id number]
[2018-11-22 14:11] LABS: ALT (SGPT) 16 U/L (8-55); AST (SGOT) 25 U/L (5-34); Albumin 3.1 g/dL (3.4-4.8); Alkaline Phosphatase 233 U/L (40-150); Anion Gap 15 mmol/L (10-20); BUN (Urea Nitrogen) 7 mg/dL (8.4-25.7); Bilirubin, Total 0.4 mg/dL (0.2-1.2); Calc. Creatinine Clearance 83 mL/min (70-130); Calcium 8.6 mg/dL (7.8-10.44); Carbon Dioxide 19 mmol/L (23-31); Chloride 106 mmol/L (98-107); Estimated GFR-MDRD 88; Globulin 3.5 g/dL (2.4-3.5); Glucose 81 mg/dL (83-110); Potassium 3.7 mmol/L (3.5-5.1); Protein, Total 6.6 g/dL (5.8-8.1); Sodium 136 mmol/L (136-145)
--- NOTE | 2018-11-22 15:39 | PDOC.GSPN ---
Surgery Progress Note: Subj - Subjective Narrative: Feels OK, just sore. Discussed intra-op findings w pt, he reports he thinks he might have "cracked a rib" on the right in the past but otherwise can't recall any history of trauma to right flank. Incisions clean, dry, appropriate post-op tenderness. A/P: Doing ok s/p lap oziel. Distal CBD stricture of unclear etiology. GI aware , defer management of this to their judgment. LFTs are not elevated except alk phos which is likely bone in origin. Await pathology results, but intra-op appearance of chronic cholecystitis and likely liver scarring possibly due to old trauma. Pt requested keeping salmeron catheter overnight due to impaired mobility but this can be discontinued at any time, watching for post-op urinary retention. Surgery Progress Note: Obj - Vital signs Vital signs: Vital Signs - Most Recent Temp Pulse Resp BP Pulse Ox 97.2 F L 70 16 138/80 96 11/22/18 15:04 11/22/18 15:04 11/22/18 15:04 11/22/18 15:04 11/22/18 15:04 Surgery Progress Note: Results - Labs Result Diagrams: 11/21/18 06:02 11/22/18 13:34 Lab results: Laboratory Results - last 24 hr 11/22/18 11/22/18 04:20 13:34 Sodium 137 136 Potassium 3.6 3.7 Chloride 107 106 Carbon Dioxide 21 L 19 L Anion Gap 13 15 BUN 6 L 7 L Creatinine 0.72 0.84 Estimated GFR (MDRD) Greater than 90 88 Glucose 85 81 L Calcium 8.5 8.6 Magnesium 2.9 H Total Bilirubin 0.4 AST 25 ALT 16 Alkaline Phosphatase 233 H Serum Total Protein 6.6 Albumin 3.1 L Globulin 3.5 Albumin/Globulin Ratio 0.9 L
--- NOTE | 2018-11-22 18:01 | PRG ---
DATE OF SERVICE: 11/22/2018 SUBJECTIVE: Mr. Herring went for laparoscopic cholecystectomy with intraoperative cholangiogram and liver biopsy earlier today. The procedure seems to have gone well. The area in question of the liver appeared most consistent with scarring from old trauma, rather than neoplastic process, and biopsy was obtained. 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 The patient says he is currently feeling well. He has minimal abdominal discomfort. No nausea or vomiting. He is already tolerating clear liquids. OBJECTIVE: VITAL SIGNS: Temperature 97.2, pulse 70, blood pressure 138/80, and 96% oxygen saturation on room air. GENERAL: No acute distress. HEART: Regular rate and rhythm. LUNGS: Clear to auscultation bilaterally. ABDOMEN: Surgical incisions look good. Mild distention. Bowel sounds hypoactive, but present. Soft. Mild to minimal tenderness to palpation. No guarding or rebound tenderness. EXTREMITIES: No peripheral edema. LABORATORY STUDIES: WBC 7.7, hemoglobin 12.3, and platelets 437. Sodium 136, potassium 3.7, BUN 7, creatinine 0.84, total bilirubin 0.4, alkaline phosphatase 233, AST 25, ALT 16, and albumin 3.1. CA-19-9 was only 33. ASSESSMENT AND PLAN: 1. Cholecystitis, now status post laparoscopic cholecystectomy earlier today. 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 There were no intrinsic filling defects noted. 3. Indeterminate liver lesion. This has been demonstrated on CT imaging. Intraoperative findings were most suggestive of benign scar secondary to old trauma, rather than malignancy. Biopsy was taken and this is pending. Note CA-19-9 level was normal. I discussed the case with Dr. Melgoza earlier today. Mr. Herring is minimally symptomatic at this point with significant improvement in alkaline phosphatase and essentially otherwise unremarkable LFTs. 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 I would hesitate to proceed with ERCP at this time and put him through the associated risks, given how well he is doing and to the laboratory trends. Expect cannulation might be difficult if endoscopic retrograde cholangiopancreatography was attempted. This is something Dr. Melgoza might consider later on. At this point, continue with routine postoperative care, would continue to trend LFTs, await results of liver biopsy. Job ID: [id number]
[2018-11-22] MEDS: ALPRAZolam 0.5 MG TAB PO PRN (23:04)
[2018-11-23] MEDS: oxyCODONE/Acetaminophen 5 mg/325 mg Tablet PO PRN ×6 (02:44→23:47)
[2018-11-23] MEDS: Levothyroxine Sodium 88 MCG TAB PO SCH (06:57)
[2018-11-23] MEDS: Gabapentin 300 MG CAP PO SCH ×3 (08:55→19:53)
[2018-11-23] MEDS: Enoxaparin Sodium 40 MG/0.4 ML SYRINGE SC SCH (08:55)
[2018-11-23] MEDS: ENZALUTAMIDE 40 MG PO SCH (08:57)
[2018-11-23] MEDS: Sodium Chloride 0.9% 1,000 ML IV SCH ×2 (10:00→19:54)
--- NOTE | 2018-11-23 10:30 | PRG ---
DATE OF SERVICE: 11/23/2018 SUBJECTIVE: Mr. Herring is feeling pretty well. He got some good sleep. He denies any nausea. His abdominal pain has significantly improved from yesterday. He has remained hemodynamically stable. He has been tolerating full liquid diet this morning. OBJECTIVE: VITAL SIGNS: Temperature 97.4, pulse 87, blood pressure 150/86, and 95% oxygen saturation on room air. GENERAL: No acute distress. HEART: Regular rate and rhythm. LUNGS: Clear to auscultation bilaterally. ABDOMEN: Bowel sounds are active. Soft and nontender to palpation throughout. EXTREMITIES: No peripheral edema. LABORATORY STUDIES: No new labs this morning. ASSESSMENT AND PLAN: 1. Cholecystitis, now postoperative day 1 after laparoscopic cholecystectomy. Seems to be doing very well. 2. Ampullary stenosis. This has been demonstrated on prior endoscopic ultrasound and now on intraoperative cholangiogram yesterday. There were no intrinsic filling defects noted with essentially normal LFTs and no symptoms, will not plan on any endoscopic retrograde cholangiopancreatography. 3. Indeterminate liver lesion. This has been demonstrated on CT imaging. CA19-9 level is normal. Intraoperative findings were most suggestive of benign scar rather than malignancy. Biopsy was taken and this is still pending. 4. Continue dietary advancement per surgical recommendations. No other new recommendations from a GI standpoint at this time. Job ID: [id number]
--- NOTE | 2018-11-23 15:38 | PDOC.GSPN ---
Surgery Progress Note: Subj - Subjective Narrative: Feels better tolerating full liquid diet but doesn't want to advance yet. Pain improved. Doing well overall, no new recommendations. Can follow up in my clinic in 2 weeks. Surgery Progress Note: Obj - Vital signs Vital signs: Vital Signs - Most Recent Temp Pulse Resp BP Pulse Ox 98.3 F 71 16 164/97 H 96 11/23/18 12:00 11/23/18 12:00 11/23/18 12:00 11/23/18 12:00 11/23/18 12:00 Surgery Progress Note: Results - Labs Result Diagrams: 11/21/18 06:02 11/22/18 13:34
--- NOTE | 2018-11-23 17:01 | PRG ---
DATE OF SERVICE: 11/23/2018 SUBJECTIVE: He thinks he might have cracked a rib on the right, but he does not recall any history of trauma to the right flank. OBJECTIVE: VITAL SIGNS: Blood pressure is 164/97, pulse is 71, temperature is 98.3, respirations 16, and O2 saturation 96% on room air. HEENT: His head is atraumatic and normocephalic. Pupils are responding to light properly. Sclerae are nonicteric. Conjunctivae are pinkish. Oral mucosa is moist. NECK: Supple. LUNGS: Clear. HEART: S1, S2 normal. No S3. No S4. ABDOMEN: Soft. Mildly tender. Bowel sounds are present. EXTREMITIES: No clubbing, cyanosis, or edema. NEUROLOGIC: He is alert and oriented x4. There is no any sensory or motor deficits present. Cranial nerves are intact. LABORATORY DATA: None today. IMPRESSION: 1. Cholecystitis, status post laparoscopic cholecystectomy, doing quite well on advanced diet. 2. Ampullary stenosis. 3. Lesion of the liver, status post biopsy. Intraoperatively, findings were most suggestive of benign scar rather than malignancy. 4. Chest discomfort of unclear etiology, most likely chest wall pain. 5. Urinary incontinence. 6. Enterococcal bacteremia. 7. Hypokalemia, supplemented. 8. Hypothyroidism. 9. Chronic anemia. 10. Anxiety and depression. 11. Degenerative joint disease. 12. History of prostate cancer. 13. 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 The patient will require Pen-Vee K for suppressive therapy for few months. PLAN: Plan is to continue his levofloxacin, continue advanced diet, and he should be able to go home in the next probably 48 hours. Job ID: [id number]
[2018-11-23] MEDS: fentaNYL 75 mcg/hour Patch TD SCH (21:47)
[2018-11-24] MEDS: ALPRAZolam 0.5 MG TAB PO PRN (01:11)
[2018-11-24] MEDS: oxyCODONE/Acetaminophen 5 mg/325 mg Tablet PO PRN ×5 (03:58→20:26)
[2018-11-24] MEDS: Levothyroxine Sodium 88 MCG TAB PO SCH (06:34)
[2018-11-24] MEDS: Gabapentin 300 MG CAP PO SCH ×3 (08:26→20:25)
[2018-11-24] MEDS: Enoxaparin Sodium 40 MG/0.4 ML SYRINGE SC SCH (08:26)
[2018-11-24] MEDS: ENZALUTAMIDE 40 MG PO SCH (08:26)
--- NOTE | 2018-11-24 11:32 | PRG ---
DATE OF SERVICE: 11/24/2018 SUBJECTIVE: Patient is seen and examined at the bedside. He is slowly recovering from his lap oziel. He is tolerating food. He still has some abdominal discomfort, but it is significantly less than what it was yesterday. He is participating in physical therapy. OBJECTIVE: VITAL SIGNS: Blood pressure is 172/99, pulse is 67, temperature is 98, respiratory rate is 18, O2 saturation is 97% on room air. : He has a Guerra in. HEENT: His head is atraumatic and normocephalic. Eyes are PERRLA. Sclerae are nonicteric. Oral mucosa is moist. NECK: Supple. LUNGS: Clear. HEART: S1 and S2 normal. ABDOMEN: Soft, nontender. Bowel sounds are present. No organomegaly. EXTREMITIES: No clubbing, cyanosis, or edema. NEUROLOGIC: He follows my commands. He moves his all four extremities. LABORATORY DATA: Glucose is 138 from yesterday and we do not have any lab work done this morning. IMPRESSION: 1. Cholecystitis, status post laparoscopic cholecystectomy, recovering properly. 2. Ampullary stenosis. 3. Lesion of the liver, status post biopsy. Intraoperatively findings were most consistent with benign scar rather than malignancy. Awaiting for pathology results. 4. Urinary incontinence. We have a Guerra in his bladder and he would like to keep it. Otherwise, he is urine incontinent. 5. Enterococcal bacteremia, on oral levofloxacin. 6. Hypokalemia, supplementation. 7. Hypothyroidism. 8. Chronic anemia. 9. Anxiety and depression. 10. Degenerative joint disease. 11. History of prostate cancer. 12. 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 Per ID, he will require penicillin VK for suppressive therapy for few months. PLAN: Plan is to contact ID regarding his length of oral antibiotic for his Enterococcal bacteremia and advance the diet and continue PT and he should be able to be transferred back to the [place], the place where he lives, in the next 24 hours. Job ID: [id number]
--- NOTE | 2018-11-24 15:12 | PRG ---
DATE OF SERVICE: 11/24/2018 SUBJECTIVE: Mr. Herring feels much better in the last week. He is advancing his diet. Abdominal pain is much better. His biopsy of the liver and gallbladder pathology is pending. MEDICATIONS: 1. Tylenol. 2. Xanax. 3. Norvasc. 4. Lovenox. 5. Enzalutamide. 6. Duragesic patch. 7. Levaquin. 8. Magnesium oxide. 9. Zofran p.r.n. 10. Percocet p.r.n. 11. Penicillin VK. 12. Tamsulosin. PHYSICAL EXAMINATION: VITAL SIGNS: Temperature 98.4, pulse 70, and blood pressure 152/82. ABDOMEN: Soft and nontender. LUNGS: Clear. HEART: Regular rate and rhythm. EXTREMITIES: No clubbing, cyanosis, or edema. LABORATORY DATA: None today. ASSESSMENT: 1. Suspected cholecystitis, status post lap oziel. 2. Enterococcus bacteremia, resolved. 3. Ampullary stenosis. He had transient elevation of alkaline phosphatase with elevation of GGT suggesting biliary tract etiology. The IOC did show slow drainage of contrast from the ampulla. He has had a previous EUS showing ampullary stenosis. There are no signs of obstruction or abnormal bilirubin. No fever. No tenderness. RECOMMENDATIONS: Would continue antibiotic therapy as indicated for his blood infections. I am happy to see him back in evaluation in the clinic after discharge to follow up on his biopsies. We will follow up tomorrow if he is still here in the hospital. Job ID: [id number]
--- NOTE | 2018-11-24 18:58 | PRG ---
DATE OF SERVICE: 11/24/2018 SUBJECTIVE: Mr. Herring had cholecystectomy by Dr. Mcgrath. She found that there was evidence of stricture at the end of the CBD with quite a bit of dilation, but no stones. Appears well, feeling better than before. No respiratory symptoms. Minimal abdominal pain. OBJECTIVE: VITAL SIGNS: Normal except for slight elevation in systolic blood pressure. GENERAL: Appears in no distress.. HEENT: Ocular movements are conjugate. LUNGS: Clear. HEART: S1 and S2. Regular rate. ABDOMEN: Soft. Not distended or tender, maybe mild tenderness in the right lower quadrant. LABORATORY DATA: He had a white cell count 7.7, hemoglobin 12.3, platelets 437 with normal differential. Alkaline phosphatase 233, albumin 3.1. The patient had a liver biopsy done of the area of abnormality noted. Pathology of gallbladder and liver biopsy is pending at this time. ASSESSMENT AND DISCUSSION: Prostate cancer, stage IV; bilateral hip arthroplasty with Finegoldia magna infection, left side, removal of implant, protracted antimicrobial therapy, and now fever with abnormal liver function tests and evidence of cholecystitis and possible stricture of the common bile duct with likely cholangitis. The abnormality in the liver biopsy is not clear, and we will have to continue following the results of the pathology. Job ID: [id number]
[2018-11-24] MEDS: Penicillin V Potassium 250 MG TAB PO SCH (20:25)
[2018-11-25] MEDS: oxyCODONE/Acetaminophen 5 mg/325 mg Tablet PO PRN ×5 (00:24→16:36)
[2018-11-25] MEDS ORDERED: Furosemide 20 MG/2 ML VIAL SLOW IVP SCH (01:00)
[2018-11-25] MEDS ORDERED: Furosemide 20 MG TAB PO SCH (01:15)
[2018-11-25 05:16] LABS: #Basophils 0.1 thou/uL (0.0-0.2); #Eosinphils 0.6 thou/uL (0.0-0.7); #Lymphocytes 2.4 thou/uL (1.20-3.40); #Monocytes 0.8 thou/uL (0.11-0.59); #Neutrophils 3.6 thou/uL (1.40-6.50); %Basophils 1.4 % (0.0-1.0); %Eosinophils 8.5 % (0.0-10.0); %Neutrophils 48.1 % (42.0-75.0); Hemoglobin 12.5 g/dL (14.0-18.0); Mean Corpuscular HGB CONC 32.1 g/dL (32.0-36.0); Mean Corpuscular Hemoglobin 25.9 pg (27.0-31.0); Mean Corpuscular Volume 80.9 fL (78.0-98.0); Mean Platelet Volume 6.5 fL (7.4-10.4); Platelet Count 457 thou/uL (130-400); RBC Distribution Width 15.9 % (11.5-14.5); Red Blood Cell (RBC) Count 4.82 mill/uL (4.70-6.10); White Blood Cell (WBC) Count 7.5 thou/uL (4.8-10.8)
[2018-11-25 05:31] LABS: Anion Gap 12 mmol/L (10-20); BUN (Urea Nitrogen) 4 mg/dL (8.4-25.7); Calc. Creatinine Clearance 97 mL/min (70-130); Calcium 8.7 mg/dL (7.8-10.44); Carbon Dioxide 25 mmol/L (23-31); Chloride 108 mmol/L (98-107); Estimated GFR-MDRD Greater than 90; Glucose 78 mg/dL (83-110); Potassium 3.5 mmol/L (3.5-5.1); Sodium 141 mmol/L (136-145)
[2018-11-25] MEDS: Ondansetron ODT 4 MG TAB PO PRN ×2 (06:24→13:39)
[2018-11-25] MEDS: Levothyroxine Sodium 88 MCG TAB PO SCH (06:24)
--- NOTE | 2018-11-25 07:28 | RAD ---
XR Chest 1 View Portable History: [Crackles, wheeze] Comparison: Radiograph November 13, 2018 Findings: Small effusions. Heart size is enlarged. Mild edema. Small line fluid right minor fissure. No pneumothorax. Cardiac device is similar. Impression: Cardiomegaly, small effusions, and mild edema.
[2018-11-25] MEDS: Gabapentin 300 MG CAP PO SCH ×2 (08:35→16:05)
[2018-11-25] MEDS: Enoxaparin Sodium 40 MG/0.4 ML SYRINGE SC SCH (08:36)
[2018-11-25] MEDS: ENZALUTAMIDE 40 MG PO SCH (08:37)
[2018-11-25] MEDS: Penicillin V Potassium 250 MG TAB PO SCH (08:46)
[2018-11-25] MEDS ORDERED: Polyethylene Glycol 3350 17 GM Packet PO SCH (09:00)
[2018-11-25] MEDS ORDERED: Magnesium Oxide 400 MG TAB PO SCH (09:00)
[2018-11-25] MEDS ORDERED: Tamsulosin HCl 0.4 MG CAP PO SCH (09:00)
[2018-11-25] MEDS ORDERED: Amlodipine 5 MG TAB PO SCH (09:00)
[2018-11-25 16:31] VITALS: BP 133/78; TEMP 97.8
--- NOTE | 2018-11-25 16:59 | PDOC.GSPN ---
Surgery Progress Note: Subj - Subjective Narrative: Feels okay. Still having some right upper quadrant pain which hasn't really changed. Tolerating a full liquid diet and does not want solid food yet. Still somewhat tender in the right upper quadrant. Incisions look good. Diet can be advanced as tolerated. Signing off. Patient is to follow up in my clinic in 2 weeks. Surgery Progress Note: Obj - Vital signs Vital signs: Vital Signs - Most Recent Temp Pulse Resp BP Pulse Ox 97.8 F 71 13 133/78 93 L 11/25/18 16:28 11/25/18 16:28 11/25/18 16:28 11/25/18 16:28 11/25/18 16:28 Surgery Progress Note: Results - Labs Result Diagrams: 11/25/18 04:44 11/25/18 04:44 Lab results: Laboratory Results - last 24 hr 11/25/18 11/25/18 04:44 04:44 WBC 7.5 RBC 4.82 Hgb 12.5 L Hct 39.0 L MCV 80.9 MCH 25.9 L MCHC 32.1 RDW 15.9 H Plt Count 457 H MPV 6.5 L Neutrophils % 48.1 Lymphocytes % 32.0 Monocytes % 10.0 Eosinophils % 8.5 Basophils % 1.4 H Neutrophils # 3.6 Lymphocytes # 2.4 Monocytes # 0.8 H Eosinophils # 0.6 Basophils # 0.1 Sodium 141 Potassium 3.5 Chloride 108 H Carbon Dioxide 25 Anion Gap 12 BUN 4 L Creatinine 0.72 Estimated GFR (MDRD) Greater than 90 Glucose 78 L Calcium 8.7
--- NOTE | 2018-11-26 08:40 | DIS ---
DATE OF ADMISSION: 11/13/2018 DATE OF DISCHARGE: 11/25/2018 ADMISSION DIAGNOSES: 1. Sepsis. 2. Septic arthritis of the left hip. 3. Dyslipidemia. 4. Hypothyroidism. 5. History of prostate cancer. 6. Depression. FINAL DIAGNOSES: 1. Sepsis with enterococcal bacteremia. 2. Cholecystitis, status post laparoscopic cholecystectomy. 3. Ampullary stenosis. 4. Lesion of the liver, status post biopsy, unclear etiology. The results are still pending. 5. Urinary incontinence. 6. Hypokalemia, status post supplementation. 7. Hypothyroidism. 8. Chronic anemia. 9. Anxiety and depression. 10. Degenerative joint disease. 11. History of prostate cancer. 12. 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 CONSULTANTS: 1. Dr. Nahid Bowie, Orthopedic Surgery. 2. Dr. Abdullahi Levin, Infectious Diseases. 3. Dr. Liam Hernandez, General Surgery. 4. Dr. Nahid Melgoza, Gastroenterology Service. 5. Dr. Ana Mcgrath , General Surgery. 6. Dr. Stanley Carter, Gastrointestinal Service. PROCEDURES: 1. Left hip aspiration done on the 14 of November. 2. Laparoscopic cholecystectomy done by Dr. Mcgrath on the November. 3. Ultrasound of the abdomen showed mild gallbladder wall prominence and pericholecystic edema. Also, there was mild prominence of the biliary ductal system. 4. CT of the abdomen and pelvis. a. Abnormal dilatation of the common bile duct with soft tissue thickening debris in the distal common bile duct. b. Intrahepatic biliary dilatation. c. Area of wedge-shaped densities in the right hepatic lobe with differential diagnosis including hepatic masses versus wedge-shaped areas of vascular compromise from portal vein thrombosis versus hepatic parenchymal changes due to cholangitis. 5. HIDA scan showed scintigraphic evidence of cystic duct patency and gallbladder ejection fraction was low at approximately 15%. 6. Cholangiogram intraoperative showed intraoperative cholangiogram revealing contrast desiccation partially imaged biliary ductal system as well as opacification of adjacent small bowel. No obvious focal filling defect of the image contrast opacified biliary ductal system. Brain CT showed chronic type findings. No acute intracranial abnormalities were noted. There was diffuse cortical atrophy and mild chronic ischemic small-vessel disease. X-ray showed chronic mild pulmonary vascular congestion and other findings, which appears stable. 7. X-ray of the left hip showed aggressive appearing destruction of the left femoral head and acetabulum with evidence of prior fixation of the proximal femoral shaft with fractures that appeared to be acute. Also, there was some osteoporosis present. 8. Most recent chest x-ray showed cardiomegaly, small effusions, and mild edema. HOSPITAL COURSE: The patient was an 83-year-old male with complaints of fever and confusion, who was sent out to the emergency room from [facility] where he lives. Apparently, he had left septic arthritis in August 2018, with Finegoldia magna suspicious. Apparently, his temperature was up to 102 degrees of Fahrenheit at the [facility]. He had some nausea and vomiting. Reported pain in his left hip. He was evaluated in the emergency room and was found to be quite altered mentally[place] [address] with 88% of neutrophils, hemoglobin 11.5. Normal creatinine. Elevated total bilirubin at 1.8, AST at 340, ALT 203, and alkaline phosphatase 1002. TSH was normal. Urinalysis showed positive for small amount of bilirubin. The patient got admitted with working diagnosis of sepsis, most likely due to infection of the left hip. He was started on vancomycin and Zosyn for diagnosis of above-mentioned plus septic arthritis, possible. He underwent CT-guided aspiration of the left hip joint, which showed some species but few except and many RBCs and no organisms were seen. Consulted and consideration was given to some other possible sources of this infection like abdominal source, gallbladder issue since his liver function tests were elevated. He underwent further evaluation with ultrasound and HIDA scan which showed possible cholecystitis. General surgery was consulted and made about a laparoscopic cholecystectomy which was done by Dr. Mcgrath on the 22 of November and his postoperative time of recover was uneventful. Also, the patient had operative cholangiogram done. Distal CBD stricture was identified, that was unclear etiology and also there was some area which was felt to be scarred, but the biopsy was taking to rule out any other causes and the pathology is still pending. He was switched to levofloxacin after one out of two blood cultures came back positive for Enterococcus cloacae complex and the dose was 750 mg and he will continue on this dose for the next 3 weeks. Also because of the left hip infection from the past, he needs to stay on penicillin VK in full life according to Dr. Levin' recommendation. The patient is doing well. He is able to tolerate his food after the surgery. He participates in some physical therapy, although he is not ambulatory. He is going to be transferred back to the senior living where he lives, called the [facility]. He is going to stay on low-salt, heart-healthy diet, he will continue. DISCHARGE MEDICATIONS: 1. Gabapentin 300 mg three times a day. 2. Levofloxacin 750 mg once a day orally for the next 3 weeks, so he should be done at the end of November. 3. Levothyroxine 100 mcg once a day. 4. Magnesium oxide 400 mg once a day. 5. Penicillin VK 500 mg twice a day. 6. Polyethylene glycol 17 g once a day. 7. Flomax 0.8 mg once a day. 8. Tylenol 650 q.4 hours p.r.n. as needed. 9. Alprazolam 0.5 mg at bedtime. 10. Amlodipine 5 mg once a day. 11. Aspirin 81 mg once a day. 12. Xtandi 40 mg once a day, I believe this is four tablets. 13. Fentanyl 75 mcg patch, change every 72 hours. 14. Furosemide 40 mg once a day. 15. Oxycodone 5/325 mg once a day. 16. Potassium chloride 20 mEq x2 daily. FOLLOWUP: Follow up with Dr. Mcgrath in 2 weeks. The patient was seen and examined before his discharge and the discharge time is more than 30 minutes. Recommend him to follow up with his primary care physician in 1 week. Job ID: [id number]
== END 2018-11-25 18:11 | DRG 853 ==
LOC: ERS 22:21 → SURG B 23:30
PROVIDERS: ADMIT Hospitalist; ATTEND Hospitalist
PROC: 0J9M3ZX Drainage of Left Upper Leg Subcutaneous Tissue and Fascia, Percutaneous Approach, Diagnostic (ICD-10-PCS; principal; 2018-11-14)
PROC: 0FT44ZZ Resection of Gallbladder, Percutaneous Endoscopic Approach (ICD-10-PCS; 2018-11-21)
PROC: 0FB14ZX Excision of Right Lobe Liver, Percutaneous Endoscopic Approach, Diagnostic (ICD-10-PCS; 2018-11-21)
PROC: BF101ZZ Fluoroscopy of Bile Ducts using Low Osmolar Contrast (ICD-10-PCS; 2018-11-21)
DX: A41.81 Sepsis due to Enterococcus (principal); K83.1 Obstruction of bile duct; G93.41 Metabolic encephalopathy; M00.9 Pyogenic arthritis, unspecified; I50.32 Chronic diastolic (congestive) heart failure; E44.0 Moderate protein-calorie malnutrition; K83.09 Other cholangitis; K81.2 Acute cholecystitis with chronic cholecystitis; I49.5 Sick sinus syndrome; M54.30 Sciatica, unspecified side; E78.5 Hyperlipidemia, unspecified; E03.9 Hypothyroidism, unspecified; F32.9 Major depressive disorder, single episode, unspecified; E87.6 Hypokalemia; G89.4 Chronic pain syndrome; F41.9 Anxiety disorder, unspecified; D64.9 Anemia, unspecified; Z68.27 Body mass index [BMI] 27.0-27.9, adult; K76.9 Liver disease, unspecified; Z79.82 Long term (current) use of aspirin; Z85.850 Personal history of malignant neoplasm of thyroid; Z85.46 Personal history of malignant neoplasm of prostate
CPT/HCPCS: 36415; 36416; 47532; 51701; 70450; 71045; 74178; 76705; 77002; 77012; 78227; 80048; 80053; 80202; 81003; 82550; 82977; 83605; 83690; 83735; 83880; 84443; 84484; 85025; 85060; 85652; 86140; 86301; 87040; 87070; 87077; 87086; 87149; 87186; 87205; 87633; 87804; 89051; 93005; 96365; 96366; 96367; 96375; A9537; J1100; J1610; J1650; J1940; J1956; J2250; J2405; J2543; J2704; J3010; J3370; J3480; J7050; Q0162; Q9961; Q9966

== ENCOUNTER 2019-03-20 11:06 | Emergency (ER) | payer MEDICARE ==
--- NOTE | 2019-03-20 11:41 | RAD ---
Portable frontal chest radiograph: 03/20/2019 COMPARISON: 11/25/2018 HISTORY: Chest pain FINDINGS: Stable dual lead transvenous pacing device. Round lucency in the left cardiophrenic angle s uggests hiatal hernia. Coarse increased linear interstitial density noted bilaterally. No pneumothorax, pleural fluid, focal consolidation, or alveolar edema. IMPRESSION: Chronic findings as detailed above. No lobar consolidation or alveolar edema.
[2019-03-20 11:49] LABS: #Basophils 0.1 thou/uL (0.0-0.2); #Eosinphils 0.3 thou/uL (0.0-0.7); #Lymphocytes 2.2 thou/uL (1.20-3.40); #Monocytes 0.8 thou/uL (0.11-0.59); #Neutrophils 4.3 thou/uL (1.40-6.50); %Basophils 0.9 % (0.0-1.0); %Eosinophils 3.4 % (0.0-10.0); %Lymphocytes 29.4 % (21.0-51.0); %Monocytes 10.1 % (0.0-10.0); %Neutrophils 56.1 % (42.0-75.0); Hemoglobin 13.4 g/dL (14.0-18.0); Mean Corpuscular HGB CONC 32.5 g/dL (32.0-36.0); Mean Corpuscular Hemoglobin 27.3 pg (27.0-31.0); Mean Platelet Volume 7.4 fL (7.4-10.4); Platelet Count 318 thou/uL (130-400); RBC Distribution Width 14.1 % (11.5-14.5); White Blood Cell (WBC) Count 7.6 thou/uL (4.8-10.8)
[2019-03-20] MEDS ORDERED: Fentanyl 100 MCG/2 ML VIAL ONE (11:52)
[2019-03-20] MEDS ORDERED: fentaNYL 75 mcg/hour Patch TD SCH (12:00)
[2019-03-20 12:10] LABS: ALT (SGPT) 12 U/L (8-55); AST (SGOT) 21 U/L (5-34); Albumin 3.5 g/dL (3.4-4.8); Alkaline Phosphatase 283 U/L (40-150); Anion Gap 14 mmol/L (10-20); BUN (Urea Nitrogen) 23 mg/dL (8.4-25.7); Bilirubin, Total 0.5 mg/dL (0.2-1.2); Calc. Creatinine Clearance 0 mL/min (70-130); Calcium 8.9 mg/dL (7.8-10.44); Carbon Dioxide 23 mmol/L (23-31); Chloride 102 mmol/L (98-107); Estimated GFR-MDRD 69; Globulin 3.1 g/dL (2.4-3.5); Glucose 80 mg/dL (83-110); Lipase 5 U/L (8-78); Potassium 4.4 mmol/L (3.5-5.1); Protein, Total 6.6 g/dL (5.8-8.1); Sodium 135 mmol/L (136-145)
== END 2019-03-20 13:36 | disposition home or self-care (01) ==
LOC: ERS 11:06
DX: R07.2 Precordial pain (principal); R10.9 Unspecified abdominal pain; G89.29 Other chronic pain; E78.5 Hyperlipidemia, unspecified; Z85.46 Personal history of malignant neoplasm of prostate; E03.9 Hypothyroidism, unspecified; F41.9 Anxiety disorder, unspecified
CPT/HCPCS: 36415; 71045; 80053; 83690; 84484; 85025; 93005; 96374; J3010

== ENCOUNTER 2020-08-13 21:04 | Inpatient (IN) | payer MEDICARE ==
[2020-08-13 21:34] LABS: #Basophils 0.1 thou/uL (0.0-0.2); #Eosinphils 0.2 thou/uL (0.0-0.7); #Lymphocytes 2.6 thou/uL (1.20-3.40); #Monocytes 0.6 thou/uL (0.11-0.59); #Neutrophils 2.5 thou/uL (1.40-6.50); %Basophils 1.8 % (0.0-1.0); %Eosinophils 3.8 % (0.0-10.0); %Lymphocytes 42.3 % (21.0-51.0); %Monocytes 10.4 % (0.0-10.0); %Neutrophils 41.8 % (42.0-75.0); Hemoglobin 13.3 g/dL (14.0-18.0); Mean Corpuscular HGB CONC 31.7 g/dL (32.0-36.0); Mean Corpuscular Hemoglobin 25.8 pg (27.0-31.0); Mean Corpuscular Volume 81.4 fL (78.0-98.0); Platelet Count 300 thou/uL (130-400); RBC Distribution Width 13.6 % (11.5-14.5); Red Blood Cell (RBC) Count 5.16 mill/uL (4.70-6.10); White Blood Cell (WBC) Count 6.1 thou/uL (4.8-10.8)
[2020-08-13] MEDS ORDERED: Nitroglycerin 2% Ointment 1 INCH/1 GM Packet ONE (21:50)
[2020-08-13 21:55] LABS: ALT (SGPT) 9 U/L (8-55); AST (SGOT) 17 U/L (5-34); Albumin 3.7 g/dL (3.4-4.8); Alkaline Phosphatase 149 U/L (40-110); Anion Gap 14 mmol/L (10-20); BUN (Urea Nitrogen) 27 mg/dL (8.4-25.7); Bilirubin, Total 0.2 mg/dL (0.2-1.2); CK (CPK) 56 U/L (30-200); Calc. Creatinine Clearance 0 mL/min (70-130); Calcium 8.5 mg/dL (7.8-10.44); Carbon Dioxide 26 mmol/L (23-31); Chloride 102 mmol/L (98-107); Globulin 3.3 g/dL (2.4-3.5); Glucose 83 mg/dL (83-110); Potassium 4.1 mmol/L (3.5-5.1); Sodium 138 mmol/L (136-145)
--- NOTE | 2020-08-13 22:00 | RAD ---
RADIOGRAPH CHEST 1 VIEW: DATE: 08/13/2020 TIME: 9:44 PM HISTORY: 85-year-old male with chest pain COMPARISON: 03/20/2019 FINDINGS: Again noted is the moderate size hiatal hernia. Again noted are the coarse, prominent interstitial markings diffusely. There is a mild small region of confluence of chronic infiltrate in the right perihilar upper lobe, u nchanged. Permanent pacemaker with left-sided generator. No new consolidation or pneumothorax. No interval change. IMPRESSION: 1) chronic interstitial pulmonary changes. 2.) Moderate size hiatal hernia. 3) pacemaker. 4) no interval change.
[2020-08-13] MEDS ORDERED: Morphine 4 MG/ML VIAL ONE (22:12)
[2020-08-13] MEDS ORDERED: Acetaminophen 325 MG TAB PO PRN (23:45)
[2020-08-13] MEDS ORDERED: Ondansetron ODT 4 MG TAB SL PRN (23:45)
[2020-08-13] MEDS ORDERED: Ondansetron PF 4 MG/2 ML Vial IVP PRN (23:45)
--- NOTE | 2020-08-13 23:59 | PDOC.HHP ---
Hospitalist HPI - History of Present Illness History of Present Illness: ADMISSION DATE: 08/13/2020 TIME OF ASSESSMENT: 2300 PRIMARY CARE PHYSICIAN: Lalita CHIEF COMPLAINT: Chest pain HPI: Patient is a 85-year-old male past medical history significant for hypertension and pacemaker placement. He states that approximately 30 minutes prior to arrival he bent down to pickling grader something and he started having a sharp and stabbing pain to his left side chest. He denied shortness of breath, diaphoresis, nausea, fever, contact with sick persons. He does state that his pacemaker has been "shorting out". When asked what this means he states that he only has one wire coming from the pacemaker that works and that the life expectancy of the pacemaker is not much longer. Patient's rn charge is Dr. Carson. He states it has been at least 3 years since his last stress test and he does not recall a recent echo. ED COURSE: Vital Signs: Blood pressure 110/67, pulse 69, respiratory rate 18, temp 98.0 oral, O2 saturation 96% on room air Today in the ER they completed lab work, chest x-ray, EKG. He was administered morphine 2 mg IV and nitro 1 inch topical. Patient was given aspirin 324 mg by EMS. PAST MEDICAL HISTORY: Sciatica, hyperlipidemia, prostate cancer, osteoarthritis, hypothyroidism, cholecystitis, hypertension PAST SURGICAL HISTORY: Radioactive seeds to prostate, bilateral hip surgeries, thyroidectomy SOCIAL HISTORY: Patient is currently a resident at the [facility]. He denies any tobacco, alcohol, drug use. FAMILY HISTORY: Unknown ALLERGIES: No known drug allergies CURRENT MEDICATIONS: Gabapentin 300 mg 3 times a day Fentanyl patch 75 mcg Aspirin 81 mg Potassium chloride 40 mEq MiraLAX Magnesium oxide 400 mg once a day Lasix 40 mg twice a day Oxycodoneacetaminophen 10 mg - 325 mg as needed Myrbetriq 25 mg daily Synthroid 88 mcg daily Norvasc 5 mg daily Imdur 30 mg once daily Flomax 0.4 mg daily at bedtime Lupron Florastor 250 mg daily Hospitalist ROS - Review of Systems Cardiovascular: reports: chest pain All other systems reviewed; all pertinent +/- noted in HPI/Subj - Exam General Appearance: NAD, awake alert Eye: PERRL ENT: normocephalic atraumatic Heart: RRR, no murmur, no gallops, no rubs, diminshed peripheral pulses Respiratory: CTAB, no wheezes, no rales, no ronchi, normal chest expansion Gastrointestinal: soft, non-tender, non-distended, normal bowel sounds Extremities: 2+ LE edema Skin: normal turgor Neurological: no focal deficits Musculoskeletal: generalized weakness Psychiatric: normal affect, normal behavior, A&O x 3 Hospitalist Results - Labs Result Diagrams: 08/13/20 21:08/13/20 21: Lab results: WBC 6.1 thou/uL (4.8-10.8) 08/13/20 21: Hgb 13.3 g/dL (14.0-18.0) L 08/13/20 21: Hct 42.0 % (42.0-52.0) 08/13/20 21: MCV 81.4 fL (78.0-98.0) 08/13/20 21: Plt Count 300 thou/uL (130-400) 08/13/20 21: Neutrophils % 41.8 % (42.0-75.0) L 08/13/20 21:28 Sodium 138 mmol/L (136-145) 08/13/20 21:28 Potassium 4.1 mmol/L (3.5-5.1) 08/13/20 21: Chloride 102 mmol/L (98-107) 08/13/20 21: Carbon Dioxide 26 mmol/L (23-31) 08/13/20 21:28 BUN 27 mg/dL (8.4-25.7) H 08/13/20 21: Creatinine 1.30 mg/dL (0.7-1.3) 08/13/20 21: Glucose 83 mg/dL (83-110) 08/13/20 21:28 Calcium 8.5 mg/dL (7.8-10.44) 08/13/20 21: Total Bilirubin 0.2 mg/dL (0.2-1.2) 08/13/20 21: AST 17 U/L (5-34) 08/13/20 21:28 ALT 9 U/L (8-55) 08/13/20 21:28 Alkaline Phosphatase 149 U/L (40-110) H 08/13/20 21:28 Creatine Kinase 56 U/L (30-200) 08/13/20 21:28 Troponin I Less than 0.010 ng/mL (< 0.028) 08/13/20 21:28 B-Natriuretic Peptide 66.6 pg/mL (0-100) 08/13/20 21:43 Serum Total Protein 7.0 g/dL (5.8-8.1) 08/13/20 21:28 Albumin 3.7 g/dL (3.4-4.8) 08/13/20 21:28 - EKG Interpretation EKG: Vpaced rhythm 74bpm - Radiology Interpretation Chest x-ray Status: image reviewed by me, report reviewed by me Additional Comment: IMPRESSION: 1) chronic interstitial pulmonary changes. 2.) Moderate size hiatal hernia. 3) pacemaker. 4) no interval change. Hospitalist H&P A/P - Plan Plan: Chest pain Monitor on telemetry Continue to trend troponins Stress test in a.m. Echo in a.m. FLP in a.m. N.p.o. at midnight for stress test Hypertension Monitor vital signs every 4 hours Restart home medications once reconciled including Imdur and amlodipine Chronic kidney disease stage III Continue to monitor with lab work Avoid nephrotoxic medications Hypothyroidism Restart home medications once reconciled VTE prophylaxis in place with Lovenox CODE STATUS: Full Surrogate decision maker is his son
[2020-08-14 00:38] VITALS: BMI 31.6
[2020-08-14 00:49] LABS: Troponin I Less than 0.010 ng/mL (< 0.028)
[2020-08-14 04:38] LABS: #Basophils 0.1 thou/uL (0.0-0.2); #Eosinphils 0.1 thou/uL (0.0-0.7); #Lymphocytes 2.4 thou/uL (1.20-3.40); #Monocytes 0.5 thou/uL (0.11-0.59); #Neutrophils 2.6 thou/uL (1.40-6.50); %Basophils 1.5 % (0.0-1.0); %Eosinophils 2.6 % (0.0-10.0); %Lymphocytes 41.4 % (21.0-51.0); %Monocytes 9.5 % (0.0-10.0); Hemoglobin 12.8 g/dL (14.0-18.0); Mean Corpuscular HGB CONC 31.6 g/dL (32.0-36.0); Mean Corpuscular Hemoglobin 25.8 pg (27.0-31.0); Mean Corpuscular Volume 81.6 fL (78.0-98.0); Mean Platelet Volume 7.5 fL (7.4-10.4); Platelet Count 268 thou/uL (130-400); RBC Distribution Width 13.6 % (11.5-14.5); Red Blood Cell (RBC) Count 4.95 mill/uL (4.70-6.10); White Blood Cell (WBC) Count 5.7 thou/uL (4.8-10.8)
[2020-08-14 05:04] LABS: Anion Gap 15 mmol/L (10-20); BUN (Urea Nitrogen) 26 mg/dL (8.4-25.7); Calc. Creatinine Clearance 61 mL/min (70-130); Calcium 8.3 mg/dL (7.8-10.44); Carbon Dioxide 25 mmol/L (23-31); Cardiac Risk 2.7 (Less than 4.5); Chloride 103 mmol/L (98-107); Cholesterol 157 mg/dl (< 200 Desired); Glucose 88 mg/dL (83-110); HDL Cholesterol 58 mg/dL (>60 Neg Risk); LDL Cholesterol, Calculated 88 mg/dL; Potassium 3.9 mmol/L (3.5-5.1); Sodium 139 mmol/L (136-145); Triglycerides 57 mg/dL (Less than 150)
[2020-08-14 05:07] LABS: Troponin I Less than 0.010 ng/mL (< 0.028)
[2020-08-14] MEDS ORDERED: Aspirin 325 mg Enteric Coated Tablet PO SCH (09:00)
[2020-08-14] MEDS ORDERED: Aspirin Chewable 81 MG TAB PO SCH (09:00)
[2020-08-14] MEDS: Enoxaparin Sodium 40 MG/0.4 ML SYRINGE SC SCH (10:23)
[2020-08-14] MEDS ORDERED: ADENOSINE 60 MG/20 ML VIAL ONE (11:59)
[2020-08-14] MEDS ORDERED: Non-Formulary Item 1 EACH (Fentanyl [Fentanyl] 1 EACH Patch.Td72) TOP SCH (13:30)
[2020-08-14] MEDS ORDERED: fentaNYL 75 mcg/hour Patch TD SCH (14:00)
[2020-08-14] MEDS: Gabapentin 300 MG CAP PO SCH ×2 (14:09→19:56)
[2020-08-14] MEDS: HYDROcodone/Acetaminophen 10/325 mg Tablet PO PRN ×2 (14:10→19:56)
[2020-08-14] MEDS ORDERED: Non-Formulary Item 1 EACH (Gabapentin [Gabapentin] 600 MG Tablet) PO SCH (15:00)
--- NOTE | 2020-08-14 15:50 | PDOC.HOSPP ---
- Subjective Encounter Date: 08/14/20 Encounter Time: 15:48 Subjective: Mr. Herring was seen today in follow-up of chest pain. He says he feels better now. He denies chest pain or shortness of breath. He had bacl pain earlier, but this is now improved. - Objective Vital Signs & Weight: Vital Signs (12 hours) Temp Pulse Resp BP Pulse Ox 08/14/20 07:33 98.0 F 67 17 138/61 98 Weight Weight 196 lb 2 oz I&O: 08/13/20 08/14/20 08/15/20 06:59 06:59 06:59 Intake Total 85 Balance 85 Result Diagrams: 08/14/20 04:07 08/14/20 04:07 Hospitalist ROS - Medication Medications: Active Medications Generic Name Dose Route Start Last Admin Trade Name Freq PRN Reason Stop Dose Admin Hydrocodone Bitart/Acetaminophen 1 tab 08/14/20 13:24 08/14/20 14:10 Hydrocodone/Acetaminophen 10/325 Mg Tablet PO 1 tab Q4H PRN Administration Moderate to Severe Pain (6-10) Enoxaparin Sodium 40 mg 08/14/20 09:00 08/14/20 10:23 Enoxaparin Sodium 40 Mg/0.4 Ml Syringe SC Not Given 0900 MAYNOR Fentanyl 75 mcg 08/14/20 14:00 08/14/20 14:11 Fentanyl 75 Mcg/Hour Patch TD 75 mcg Q72H MAYNOR Administration Gabapentin 300 mg 08/14/20 15:00 08/14/20 14:09 Gabapentin 300 Mg Cap PO 300 mg TID MAYNOR Administration - Exam Eye: PERRL, anicteric sclera Heart: RRR, no murmur, no gallops, no rubs, normal peripheral pulses Respiratory: CTAB (+ occasional rhonchi) Gastrointestinal: soft, non-tender, non-distended, normal bowel sounds, no palpable masses Extremities: 2+ LE edema (Bilateral lower exrtemities edema, and palpable pulses) Musculoskeletal: diffuse muscle atrophy (in both lower extremities) Hosp A/P (1) Chronic diastolic heart failure Code(s): I50.32 - CHRONIC DIASTOLIC (CONGESTIVE) HEART FAILURE Status: Chronic (2) Chronic pain syndrome Code(s): G89.4 - CHRONIC PAIN SYNDROME Status: Chronic (3) Hypothyroidism Code(s): E03.9 - HYPOTHYROIDISM, UNSPECIFIED Status: Chronic (4) Hypertension Code(s): I10 - ESSENTIAL (PRIMARY) HYPERTENSION Status: Acute (5) DJD (degenerative joint disease) Code(s): M19.90 - UNSPECIFIED OSTEOARTHRITIS, UNSPECIFIED SITE Status: Chronic Qualifiers: Osteoarthritis location: unspecified site - Plan * Chest pain- ? etiology- stress test and Echocardiogram are pending- his pacema ker has been interrogated, and is functioning * HTN - blood pressure is stable- continue Amlodipine * Chronic pain- Ernesto is working well * DJD- stable * Hypothyroidism- he is clinically euthyroid
--- NOTE | 2020-08-14 16:24 | NM ---
NUCLEAR MEDICINE CARDIAC MYOCARDIAL PERFUSION SPECT EJECTION FRACTION STUDY WALL MOTION CINE: DATE: 08/14/2020 HISTORY: 85-year-old male with chest pain and dyslipidemia TECHNIQUE: Number of days: 1 Rest study: Technetium 99m-sestamibi (Cardiolite) dose: 10.1 mCi Pharmacologic stress: Adenosine dose: 49.8 mg Stress study: Technetium 99m-sestamibi (Cardiolite) dose: 27.1 mCi FINDINGS: CARDIAC (MYOCARDIAL PERFUSION) SPECT There are no reversible myocardial perfusion defects. There is an apparently large lateral fixed perfusion defect, but this is probably artifact rather lester n representing infarction, because there is normal wall motion throughout the left ventricle, including this area. EJECTION FRACTION STUDY Left ventricular EF = 89 % WALL MOTION CINE Normal wall motion and normal systolic mural thickening. IMPRESSION: No convincing evidence of reversible ischemia.
[2020-08-14] MEDS: Aspirin 81 mg Enteric Coated Tablet PO SCH (19:56)
[2020-08-14] MEDS ORDERED: Tamsulosin HCl 0.4 MG CAP PO SCH (21:00)
[2020-08-15] MEDS: HYDROcodone/Acetaminophen 10/325 mg Tablet PO PRN ×3 (03:15→14:46)
[2020-08-15 04:59] LABS: #Basophils 0.1 thou/uL (0.0-0.2); #Eosinphils 0.2 thou/uL (0.0-0.7); #Lymphocytes 1.6 thou/uL (1.20-3.40); #Monocytes 0.5 thou/uL (0.11-0.59); #Neutrophils 2.7 thou/uL (1.40-6.50); %Basophils 1.1 % (0.0-1.0); %Eosinophils 3.2 % (0.0-10.0); %Lymphocytes 32.2 % (21.0-51.0); %Monocytes 10.6 % (0.0-10.0); %Neutrophils 52.8 % (42.0-75.0); Hemoglobin 13.1 g/dL (14.0-18.0); Mean Corpuscular HGB CONC 32.6 g/dL (32.0-36.0); Mean Corpuscular Hemoglobin 26.6 pg (27.0-31.0); Mean Corpuscular Volume 81.6 fL (78.0-98.0); Mean Platelet Volume 7.7 fL (7.4-10.4); Platelet Count 244 thou/uL (130-400); RBC Distribution Width 13.6 % (11.5-14.5); Red Blood Cell (RBC) Count 4.92 mill/uL (4.70-6.10)
[2020-08-15 05:32] LABS: Anion Gap 14 mmol/L (10-20); BUN (Urea Nitrogen) 22 mg/dL (8.4-25.7); Calc. Creatinine Clearance 68 mL/min (70-130); Calcium 8.5 mg/dL (7.8-10.44); Carbon Dioxide 24 mmol/L (23-31); Chloride 104 mmol/L (98-107); Glucose 101 mg/dL (83-110); Potassium 3.9 mmol/L (3.5-5.1); Sodium 138 mmol/L (136-145)
[2020-08-15] MEDS ORDERED: Levothyroxine Sodium 75 MCG TAB PO SCH (06:00)
[2020-08-15] MEDS ORDERED: Non-Formulary Item 1 EACH (Magnesium Oxide [Mag-Oxide] 200 MG Tablet) PO SCH (09:00)
[2020-08-15] MEDS ORDERED: Saccharomyces boulardii 250 MG CAP PO SCH (09:00)
[2020-08-15] MEDS ORDERED: Non-Formulary Item 1 EACH (Isosorbide Dinitrate [Isosorbide Dinitrate] 30 MG Tablet) PO SCH (09:00)
[2020-08-15] MEDS ORDERED: Polyethylene Glycol 3350 17 GM Packet PO SCH (09:00)
[2020-08-15] MEDS ORDERED: Amlodipine 5 MG TAB PO SCH (09:00)
[2020-08-15] MEDS ORDERED: Isosorbide Dinitrate 20 MG TAB PO SCH (09:00)
[2020-08-15] MEDS ORDERED: Magnesium Oxide 400 MG TAB PO SCH (09:00)
[2020-08-15] MEDS ORDERED: Potassium Chloride 20 MEQ TAB PO SCH (09:00)
[2020-08-15] MEDS ORDERED: Ondansetron ODT 4 MG TAB PO PRN (09:52)
[2020-08-15] MEDS: Enoxaparin Sodium 40 MG/0.4 ML SYRINGE SC SCH (09:58)
[2020-08-15] MEDS: Gabapentin 300 MG CAP PO SCH ×2 (09:58→14:45)
[2020-08-15] MEDS: Aspirin 81 mg Enteric Coated Tablet PO SCH (10:00)
--- NOTE | 2020-08-15 12:16 | PDOC.HOSPP ---
- Subjective Encounter Date: 08/15/20 Encounter Time: 10:00 Subjective: Patient without complaints. No further chest pain. Pacemaker interrogation normal and stress test negative. - Objective Vital Signs & Weight: Vital Signs (12 hours) Temp Pulse Resp BP Pulse Ox 08/15/20 07:43 98.3 F 82 16 125/63 94 L 08/15/20 04:00 97.6 F 63 16 113/60 97 Weight Weight 193 lb 11.2 oz I&O: 08/14/20 08/15/20 08/16/20 06:59 06:59 06:59 Intake Total 85 990 Output Total 500 Balance 85 490 Result Diagrams: 08/15/20 04:08 08/15/20 04:08 Hospitalist ROS - Review of Systems Constitutional: denies: fever, chills Respiratory: denies: cough, shortness of breath Cardiovascular: denies: chest pain, palpitations Gastrointestinal: denies: nausea, vomiting, abdominal pain - Medication Medications: Active Medications Generic Name Dose Route Start Last Admin Trade Name Freq PRN Reason Stop Dose Admin Hydrocodone Bitart/Acetaminophen 1 tab 08/14/20 13:24 08/15/20 09:59 Hydrocodone/Acetaminophen 10/325 Mg Tablet PO 1 tab Q4H PRN Administration Moderate to Severe Pain (6-10) Amlodipine Besylate 5 mg 08/15/20 09:00 08/15/20 10:00 Amlodipine 5 Mg Tab PO 5 mg DAILY MAYNOR Administration Aspirin 81 mg 08/14/20 21:00 08/15/20 10:00 Aspirin 81 Mg Enteric Coated Tablet PO 81 mg BID MAYNOR Administration Enoxaparin Sodium 40 mg 08/14/20 09:00 08/15/20 09:58 Enoxaparin Sodium 40 Mg/0.4 Ml Syringe SC 40 mg 09 MAYNOR Administration Fentanyl 75 mcg 08/14/20 14:00 08/14/20 14:11 Fentanyl 75 Mcg/Hour Patch TD 75 mcg Q72H MAYNOR Administration Gabapentin 300 mg 08/14/20 15:00 08/15/20 09:58 Gabapentin 300 Mg Cap PO 300 mg TID MAYNOR Administration Isosorbide Dinitrate 30 mg 08/15/20 09:00 08/15/20 09:59 Isosorbide Dinitrate 20 Mg Tab PO 30 mg DAILY MAYNOR Administration Levothyroxine Sodium 75 mcg 08/15/20 06:00 08/15/20 05:07 Levothyroxine Sodium 75 Mcg Tab PO 75 mcg 0600 MAYNOR Administration Magnesium Oxide 400 mg 08/15/20 09:00 08/15/20 09:58 Magnesium Oxide 400 Mg Tab PO 400 mg DAILY MAYNOR Administration Mirabegron 25 mg 08/15/20 09:00 08/15/20 09:58 Mirabegron Er 25 Mg Tab PO 25 mg DAILY MAYNOR Administration Polyethylene Glycol 17 gm 08/15/20 09:00 08/15/20 10:00 Polyethylene Glycol 3350 17 Gm Packet PO Not Given DAILY MAYNOR Potassium Chloride 40 meq 08/15/20 09:00 08/15/20 09:59 Potassium Chloride 20 Meq Tab PO 40 meq DAILY MAYNOR Administration Saccharomyces Boulardii 250 mg 08/15/20 09:00 08/15/20 10:00 Saccharomyces Boulardii 250 Mg Cap PO 250 mg DAILY MAYNOR Administration Tamsulosin HCl 0.4 mg 08/14/20 21:00 08/14/20 19:56 Tamsulosin Hcl 0.4 Mg Cap PO 0.4 mg HS MAYNOR Administration - Exam General Appearance: NAD, awake alert ENT: moist mucosa Heart: RRR, no murmur, no gallops, no rubs Respiratory: CTAB, no wheezes, no rales, no ronchi Gastrointestinal: soft, non-tender, non-distended, normal bowel sounds Extremities: 1+ LE edema Extremities - other findings: bilateral contracture of feet from lack of use Psychiatric: normal affect, normal behavior Hosp A/P - Plan Atypical Chest Pain- resolved, non-cardiac (1) Chronic diastolic heart failure Code(s): I50.32 - CHRONIC DIASTOLIC (CONGESTIVE) HEART FAILURE Status: Chronic (2) Chronic pain syndrome Code(s): G89.4 - CHRONIC PAIN SYNDROME Status: Chronic (3) Hypothyroidism Code(s): E03.9 - HYPOTHYROIDISM, UNSPECIFIED Status: Chronic (4) Hypertension Code(s): I10 - ESSENTIAL (PRIMARY) HYPERTENSION Status: Acute (5) DJD (degenerative joint disease) Code(s): M19.90 - UNSPECIFIED OSTEOARTHRITIS, UNSPECIFIED SITE Status: Chronic Qualifiers: Osteoarthritis location: unspecified site - Plan * Chest pain- noncardiac- stress test and ECHO negative, his pacemaker has been interrogated, and is functioning * HTN - blood pressure is stable- continue Amlodipine * Chronic pain- Ernesto is working well * DJD- stable * Hypothyroidism- he is clinically euthyroid * Will d/c back to long-term
[2020-08-15] MEDS ORDERED: ACETAMINOPHEN PO SCH (13:00)
[2020-08-15] MEDS ORDERED: OXYCODONE HCL PO SCH (13:00)
[2020-08-15] MEDS ORDERED: [UNRECOGNIZED DRUG - OTHER] PO SCH (13:00)
[2020-08-15 15:12] VITALS: BP 97/52; TEMP 97.8
[2020-08-15] MEDS ORDERED: Nystatin Cream 30 GM TUBE TOP SCH (21:00)
[2020-08-15] MEDS ORDERED: Furosemide 40 MG TAB PO SCH (21:00)
--- NOTE | 2020-08-16 08:04 | DIS ---
DATE OF ADMISSION: 08/13/2020 DATE OF DISCHARGE: 08/15/2020 PRIMARY CARE PHYSICIAN: Dr. Celis. REASON FOR ADMISSION: Chest pain. DIAGNOSES AT DISCHARGE: 1. Chest pain, atypical, resolved. 2. Chronic diastolic congestive heart failure. 3. Chronic pain syndrome. 4. Hypothyroidism. 5. Hypertension. 6. Degenerative joint disease. PROCEDURES: 1. Nuclear medicine stress testing showing no convincing evidence of reversible ischemia. 2. Echocardiogram showing ejection fraction of 50% to 55% with diastolic dysfunction. CONSULTATIONS: None. SUMMARY OF HOSPITAL COURSE: This is an 85-year-old white male, resident of a residential, who does not ambulate at all due to bilateral hip surgeries. The patient bent over in the residential to reach for something and had a sharp stabbing pain in the left side of his chest. He thought it maybe was his pacemaker shorting out because he knows that they have connected both of his leads to one part of the pacemaker since one of the wires had shorted out in the past. However, he has had this interrogated and this was working normally. The patient presented to the emergency room. He had negative cardiac markers. He had echocardiogram and stress test done, which were both normal. He did have his pacemaker interrogated and it was operating normally. The patient's pain resolved and he had no more pain in the hospital. He has been doing well and is being discharged back to residential. DISCHARGE MANAGEMENT: Discharged to residential. ACTIVITY: As tolerated. DIET: Healthy heart diet. FOLLOWUP: Follow up with Dr. Carson as previously directed and with Dr. Celis in 7 days. DISCHARGE MEDICATIONS: 1. Amlodipine 5 mg daily. 2. Aspirin 81 mg twice a day. 3. Fentanyl patch 75 mcg topically every third day. 4. Furosemide 40 mg twice a day. 5. Gabapentin 300 mg three times a day. 6. Isosorbide dinitrate 30 mg daily. 7. Levothyroxine 75 mcg daily. 8. Magnesium hydroxide 400 mg daily. 9. Magnesium oxide 400 mg daily. 10. Myrbetriq 25 mg daily. 11. Nystatin cream twice a day. 12. Zofran as needed. 13. Oxycodone/acetaminophen 10/325 mg one tablet every 4 hours as needed for pain. 14. MiraLAX 17 g daily. 15. Potassium chloride 40 mEq daily. 16. Florastor 250 mg daily. 17. Tamsulosin 0.4 mg at night. 18. Leuprolide acetate 7.5 mg intramuscular every 30 days. Arranging the details of this discharge took 32 minutes. Job ID: [id number]
[2020-08-16] MEDS ORDERED: Milk Of Magnesia 30 ML UDCUP PO SCH (09:00)
== END 2020-08-15 16:15 | DRG 313 ==
LOC: ERS 21:04 → 2NO 23:12
PROVIDERS: ADMIT Student in an Organized Health Care Education/Training Program; ATTEND Emergency Medicine
PROC: 4B02XSZ Measurement of Cardiac Pacemaker, External Approach (ICD-10-PCS; principal; 2020-08-13)
DX: R07.89 Other chest pain (principal); I50.32 Chronic diastolic (congestive) heart failure; I13.0 Hypertensive heart and chronic kidney disease with heart failure and stage 1 through stage 4 chronic kidney disease, or unspecified chronic kidney disease; G89.4 Chronic pain syndrome; E03.9 Hypothyroidism, unspecified; M19.90 Unspecified osteoarthritis, unspecified site; N18.2 Chronic kidney disease, stage 2 (mild); Z96.643 Presence of artificial hip joint, bilateral; F41.9 Anxiety disorder, unspecified; Z95.0 Presence of cardiac pacemaker; Z79.82 Long term (current) use of aspirin; Z79.899 Other long term (current) drug therapy; Z79.890 Hormone replacement therapy; Z85.46 Personal history of malignant neoplasm of prostate
CPT/HCPCS: 36415; 71045; 78452; 80048; 80053; 80061; 82550; 83880; 84484; 85025; 93005; 93017; 93306; 94760; 96374; A9500; J0153; J1650; J2270

== ENCOUNTER 2021-03-28 15:59 | Outpatient (CLI) | payer MEDICARE | END 2021-03-28 16:00 | disposition home or self-care (01) | LOC: ULT 15:59 | PROVIDERS: ATTEND Family Medicine | DX: M79.604 Pain in right leg (principal); M81.0 Age-related osteoporosis without current pathological fracture; Z96.641 Presence of right artificial hip joint ==

== ENCOUNTER 2021-04-24 12:20 | Emergency (ER) | payer MEDICARE, MEDICAID ==
[2021-04-24 13:12] LABS: #Eosinphils 0.1 thou/uL (0.0-0.7); #Lymphocytes 1.1 thou/uL (1.20-3.40); #Monocytes 0.6 thou/uL (0.11-0.59); #Neutrophils 3.8 thou/uL (1.40-6.50); %Basophils 0.6 % (0.0-1.0); %Eosinophils 1.7 % (0.0-10.0); %Monocytes 10.5 % (0.0-10.0); %Neutrophils 67.2 % (42.0-75.0); Hemoglobin 14.6 g/dL (14.0-18.0); Mean Corpuscular HGB CONC 33.2 g/dL (32.0-36.0); Mean Corpuscular Volume 84.4 fL (78.0-98.0); Mean Platelet Volume 6.7 fL (7.4-10.4); Platelet Count 324 thou/uL (130-400); RBC Distribution Width 14.7 % (11.5-14.5); Red Blood Cell (RBC) Count 5.22 mill/uL (4.70-6.10); White Blood Cell (WBC) Count 5.7 thou/uL (4.8-10.8)
[2021-04-24 13:23] LABS: ALT (SGPT) 9 U/L (8-55); AST (SGOT) 19 U/L (5-34); Albumin 3.9 g/dL (3.4-4.8); Alkaline Phosphatase 188 U/L (40-110); Anion Gap 13 mmol/L (10-20); BUN (Urea Nitrogen) 12 mg/dL (8.4-25.7); Bilirubin, Total 0.4 mg/dL (0.2-1.2); Calc. Creatinine Clearance 0 mL/min (70-130); Calcium 9.4 mg/dL (7.8-10.44); Carbon Dioxide 27 mmol/L (23-31); Chloride 102 mmol/L (98-107); Globulin 3.4 g/dL (2.4-3.5); Glucose 105 mg/dL (83-110); Lipase Less than 4 U/L (8-78); Potassium 3.9 mmol/L (3.5-5.1); Protein, Total 7.3 g/dL (5.8-8.1); Sodium 138 mmol/L (136-145)
[2021-04-24] MEDS ORDERED: Iopamidol-370 76% 500 ML 1 ML ONE (13:31)
[2021-04-24] MEDS ORDERED: Ondansetron PF 4 MG/2 ML Vial ONE (13:42)
[2021-04-24] MEDS ORDERED: Morphine 4 MG/ML VIAL ONE ×2 (13:42→16:56)
[2021-04-24 15:04] LABS: Bacteria/HPF None Seen HPF (None Seen); Bilirubin Negative (Negative); Blood, Urine 1+ (Negative); Clarity Clear (Clear); Glucose, Urine (Dipstick) Normal (Negative); Ketone, Urine Trace mg/dL (Negative); Leukocyte Negative Leu/uL (Negative); Nitrite Negative (Negative); Protein, Urine (Dipstick) Negative (Neg-Trace); Specific Gravity, Urine 1.009 (1.002-1.036); Squamous Epithelial None Seen HPF (0-3); Urobilinogen Normal mg/dL (Less than 2); WBC/HPF 0-3 HPF (0-3); pH, Urine 6.5 (5.0-9.0)
== END 2021-04-24 16:55 ==
LOC: ERS 12:20
DX: M25.551 Pain in right hip (principal); R59.0 Localized enlarged lymph nodes; E78.5 Hyperlipidemia, unspecified; Z85.46 Personal history of malignant neoplasm of prostate; M19.90 Unspecified osteoarthritis, unspecified site; E03.9 Hypothyroidism, unspecified; Z79.82 Long term (current) use of aspirin; Z79.899 Other long term (current) drug therapy
CPT/HCPCS: 36415; 51701; 71045; 74177; 80053; 81003; 81015; 83605; 83690; 84484; 85025; 93005; 96374; 96375; 96376; J2270; J2405; Q9967

== ENCOUNTER 2021-12-20 10:21 | Outpatient (CLI) | payer MEDICARE | END 2021-12-20 10:22 | disposition home or self-care (01) | LOC: CT 10:21 | PROVIDERS: ATTEND Urology | DX: C61 Malignant neoplasm of prostate (principal); C79.51 Secondary malignant neoplasm of bone | CPT/HCPCS: 74178; 78306; A9503 ==